=== PATIENT | female | born 1955 | race Caucasian/White ===

== ENCOUNTER 2016-07-05 12:47 | Emergency (ER) | payer MEDICARE, OTHER ==
[2016-07-05] MEDS ORDERED: Albuterol 0.083% 2.5 MG/3 ML Neb Soln NEB ONE (13:22)
--- NOTE | 2016-07-05 13:29 | EDM.PDOC ---
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 Today she got some blood work and a CXR. The blood work was not immediately available, but the CXR was interpreted in the clinic as showing a pleural effusion so she was referred to the ER. She reports colored sputum production. No fever. She is a smoker. SOB with exertion only. Sats in the clinic on RA @ 83%, 93% on arrival to the ED. Onset Date: 06/28/16 Duration: Day(s):, Constant Location: Reports: Chest Quality: Reports: Other (No chest pain) Severity: Moderate Improves with: Reports: Rest Worsens with: Reports: Movement Context: Reports: Other (smoker, on tx for a respiratory infection.) Associated Symptoms: Reports: Cough, Shortness of Breath (BALES). Denies: Fever/ Chills Treatments [employer]: Reports: Other Medication(s) (Azithromycin and predisone) ED ROS GENERAL - Review of Systems Review Of Systems: See Below Constitutional: Reports: No Symptoms HEENT: Reports: No Symptoms Respiratory: Reports: Shortness of Breath (BALES), Cough, Sputum. Denies: Wheezing, Pleuritic Chest Pain, Hemoptysis Cardiovascular: Reports: No Symptoms Endocrine: Reports: No Symptoms GI/Abdominal: Reports: No Symptoms : Reports: No Symptoms Musculoskeletal: Reports: No Symptoms Skin: Reports: No Symptoms Neurological: Reports: Other ("foggy in the head".) Psychiatric: Reports: No Symptoms ED EXAM, GENERAL - Physical Exam Exam: See Below Exam Limited By: No Limitations General Appearance: Alert, WD/WN, No Apparent Distress Eye Exam: Bilateral Eye: Normal Inspection Ears: Normal External Exam, Normal Canal, Hearing Grossly Normal Ear Exam: Bilateral Ear: Auricle Normal, Canal Normal Nose: Normal Inspection, Normal Mucosa, No Blood Throat/Mouth: Normal Inspection, Normal Lips, Normal Teeth, Normal Oropharynx, Normal Voice, No Airway Compromise Head: Atraumatic, Normocephalic Neck: Normal Inspection, Supple Respiratory/Chest: No Respiratory Distress, No Accessory Muscle Use, Rhonchi ( bibasilar), Other (frequent wet cough) Cardiovascular: Regular Rate, Rhythm, No Edema GI/Abdominal: Normal Bowel Sounds, Soft, Non-Tender, No Distention Back Exam: Normal Inspection, Full Range of Motion. No: CVA Tenderness (R), CVA Tenderness (L) Extremities: Normal Inspection, Normal Range of Motion, Non-Tender, No Pedal Edema Neurological: Alert, Oriented, CN II-XII Intact, Normal Cognition, No Motor/ Sensory Deficits Psychiatric: Normal Affect, Normal Mood Skin Exam: Warm, Dry, Intact, Normal Color, No Rash Lymphatic: No Adenopathy Course - Vital Signs Text/Narrative:: Albuterol neb-improved aeration, less coughing - Orders/Labs/Meds Orders: Active Orders 24 hr Category Date Time Status RT Aerosol Therapy [RC] ASDIRECTED Care 07/05/16 13:22 Ordered CULTURE SPUTUM + SMEAR [RM] Stat Lab 07/05/16 13:22 Ordered UA W/MICROSCOPIC [URIN] Stat Lab 07/05/16 13:24 Uncollected Meds: Medications Discontinued Medications Generic Name Dose Route Start Last Admin Trade Name Freq PRN Reason Stop Dose Admin Albuterol 2.5 mg 07/05/16 13:22 Proventil Neb Soln NEB 07/05/16 13:23 ONETIME ONE Departure - Departure Time of Disposition: 14:00 Disposition: Home, Self-Care 01 Condition: good Clinical Impression: Bronchospasm Emphysema of lung Qualifiers: Emphysema type: unspecified Qualified Code(s): J43.9 - Emphysema, unspecified - Discharge Information - My Orders Last 24 Hours: My Active Orders 07/05/16 13:22 RT Aerosol Therapy [RC] ASDIRECTED CULTURE SPUTUM + SMEAR [RM] Stat 07/05/16 13:24 UA W/MICROSCOPIC [URIN] Stat - Assessment/Plan Last 24 Hours: My Active Orders 07/05/16 13:22 RT Aerosol Therapy [RC] ASDIRECTED CULTURE SPUTUM + SMEAR [RM] Stat 07/05/16 13:24 UA W/MICROSCOPIC [URIN] Stat
[2016-07-05 17:00] VITALS: BP 176/70
== END 2016-07-05 14:25 | disposition home or self-care (01) ==
LOC: FB.ED 12:47
DX: J43.9 Emphysema, unspecified (principal); J98.01 Acute bronchospasm; F17.200 Nicotine dependence, unspecified, uncomplicated
CPT/HCPCS: 81001; 87070; 87205; 94664; 99283; 99284

== ENCOUNTER 2017-05-02 09:04 | Inpatient (IN) | payer MEDICARE, OTHER ==
[2017-05-02] MEDS ORDERED: Ketorolac 30 MG/ML SDV IVPUSH ONE (09:26)
[2017-05-02] MEDS ORDERED: Ondansetron 4 MG/2 ML SDV IVPUSH ONE (09:28)
[2017-05-02] MEDS ORDERED: Morphine 4 MG/ML Syringe IVPUSH ONE ×2 (09:28→12:15)
[2017-05-02] MEDS ORDERED: Sodium Chloride 0.9% 1,000 ML IV SCH ×2 (09:30→20:30)
--- NOTE | 2017-05-02 09:31 | EDM.PDOC ---
ED HPI GENERAL MEDICAL PROBLEM - General Chief Complaint: Abdominal Pain Stated Complaint: STOMACH PAIN Time Seen by Provider: 05/02/17 09:15 Source of Information: Reports: Patient History Limitations: Reports: No Limitations - History of Present Illness INITIAL COMMENTS - FREE TEXT/NARRATIVE: c/o mid abd pain x 4.5h since 4:30 AM awoke from sleep, no better, no radiation no n/v, no change in pain with normal soft BM this AM drinks daily--2 glasses wine and one shot of snopes smoked in past no prior GI problems Middle Anterior Abdominal Pain Score (Numeric/FACES): 10 - Related Data Allergies Allergy/AdvReac Type Severity Reaction Status Date / Time oxycodone Allergy Weakness Verified 07/05/16 13:54 Home Meds: Home Meds Calcium Carbonate/Vitamin D3 [Calcium 600 + D3 Softgel] 1 each PO BID 07/05/16 [ History] Cholecalciferol (Vitamin D3) [Vitamin D3] 1,000 unit PO DAILY 07/05/16 [History] Oxybutynin Chloride [Ditropan Xl] 10 mg PO DAILY 07/05/16 [History] Lisinopril/Hydrochlorothiazide [Lisinopril-Hctz 20-25 mg Tab] 1 tab PO DAILY [History] Past Medical History - Past Surgical History Female Surgical History: Reports: Other (See Below) Other Female Surgeries/Procedures: "bladder suregery Social & Family History - Tobacco Use Smoking Status *Q: Current Every Day Smoker Years of Tobacco use: 40 Packs/Tins Daily: 0.5 - Alcohol Use Days Per Week of Alcohol Use: 7 Number of Drinks Per Day: 2 Total Drinks Per Week: 14 - Recreational Drug Use Recreational Drug Use: No ED ROS GENERAL - Review of Systems Review Of Systems: See Below Constitutional: Reports: No Symptoms. Denies: Fever, Malaise, Weakness, Night Sweats, Diaphoresis HEENT: Reports: No Symptoms Respiratory: Reports: No Symptoms. Denies: Shortness of Breath Cardiovascular: Reports: No Symptoms. Denies: Chest Pain Endocrine: Reports: No Symptoms GI/Abdominal: Reports: Abdominal Pain. Denies: Constipation, Diarrhea, Nausea, Vomiting : Reports: No Symptoms Musculoskeletal: Reports: No Symptoms Skin: Reports: No Symptoms Neurological: Reports: No Symptoms Psychiatric: Reports: No Symptoms Hematologic/Lymphatic: Reports: No Symptoms Immunologic: Reports: No Symptoms ED EXAM, GI/ABD - Physical Exam Exam: See Below Exam Limited By: No Limitations General Appearance: Alert, WD/WN, Mild Distress Eyes: Bilateral: Normal Appearance, EOMI Ears: Normal External Exam Nose: Normal Inspection, Normal Mucosa, No Blood Throat/Mouth: Normal Inspection, Normal Lips, Normal Teeth, Normal Gums, Normal Voice, No Airway Compromise Head: Atraumatic, Normocephalic Neck: Normal Inspection, Supple, Non-Tender, Full Range of Motion Respiratory/Chest: No Respiratory Distress, Lungs Clear, Normal Breath Sounds, No Accessory Muscle Use, Chest Non-Tender Cardiovascular: Regular Rate, Rhythm, No Edema, No Gallop, No JVD, No Murmur, No Rub GI/Abdominal Exam: Normal Bowel Sounds, Soft, No Organomegaly, No Distention, No Mass, Pelvis Stable, Other (soft, ND, 1+ tender at periumbilical and in midline above and below umbilicus, nl BS x 4) Back Exam: Normal Inspection, Full Range of Motion, NT Extremities: Normal Inspection, Normal Range of Motion, Non-Tender, Normal Capillary Refill, No Pedal Edema Neurological: Alert, Oriented, CN II-XII Intact, Normal Cognition, No Motor/ Sensory Deficits Psychiatric: Normal Affect, Normal Mood Skin Exam: Warm, Dry, Intact, Normal Color, No Rash Lymphatic: No Adenopathy Course - Vital Signs Last Recorded V/S: Last Vital Signs Temp 36.3 C 05/02/17 10:48 Pulse 94 05/02/17 10:48 Resp 18 05/02/17 10:48 BP 105/69 05/02/17 10:48 Pulse Ox 100 05/02/17 10:48 - Orders/Labs/Meds Orders: Active Orders 24 hr Category Date Time Status Abdomen Pelvis w Cont [CT] Stat Exams 05/02/17 09:33 Ordered UA W/MICROSCOPIC [URIN] Stat Lab 05/02/17 09:26 Ordered Diatrizoate Queta/Diatrizoate Na [Gastrografin 37%] Med 05/02/17 11:30 Active 30 ml PO . DIRECTED Sodium Chloride 0.9% [Normal Saline] 1,000 ml Med 05/02/17 09:30 Active IV ASDIRECTED Medication Orders Diatrizoate Meglum/Diatrizoate Sod (Gastrografin 37%) 30 ml PO . DIRECTED [facility] Last Admin: 05/02/17 11:39 Dose: 30 ml Sodium Chloride (Normal Saline) 1,000 mls @ 999 mls/hr IV ASDIRECTED [facility] Last Admin: 05/02/17 09:45 Dose: 999 mls/hr Labs: Laboratory Tests 05/02/17 05/02/17 05/02/17 Range/Units 09:50 09:50 09:50 WBC 11.3 (4.5-12.0) X10-3/uL RBC 4.12 (3.23-5.20) x10(6)uL Hgb 13.2 (11.5-15.5) g/dL Hct 39.1 (30.0-51.3) % MCV 95.0 (80-96) fL MCH 32.1 (27.7-33.6) pg MCHC 33.8 (32.2-35.4) g/dL RDW 12.4 (11.5-15.5) % Plt Count 236 (125-369) X10(3)uL MPV 8.3 (7.4-10.4) fL Add Manual Diff Yes Neutrophils % (Manual) 91 H (46-82) % Lymphocytes % (Manual) 6 L (13-37) % Monocytes % (Manual) 3 L (4-12) % D-Dimer, Quantitative (100-400) ng/mL Sodium 140 (135-145) mmol/L Potassium 3.9 (3.5-5.3) mmol/L Chloride 101 (100-110) mmol/L Carbon Dioxide 30 (21-32) mmol/L BUN 14 (7-18) mg/dL Creatinine 0.8 (0.55-1.02) mg/dL Est Cr Clr Drug Dosing 61.64 mL/min Estimated GFR (MDRD) > 60 (>60) BUN/Creatinine Ratio 17.5 (9-20) Glucose 168 H (80-116) mg/dL Calcium 9.4 (8.6-10.2) mg/dL Total Bilirubin 0.3 (0.1-1.3) mg/dL AST 30 H (5-25) IU/L ALT 29 (12-36) U/L Alkaline Phosphatase 93 (56-112) IU/L Lactate Dehydrogenase (81-234) U/L C-Reactive Protein 0.3 L (0.5-0.9) mg/dL Total Protein 7.4 (6.0-8.0) g/dL Albumin 3.5 (3.2-4.6) g/dL Globulin 3.9 g/dL Albumin/Globulin Ratio 0.9 Amylase 52 (25-115) U/L 05/02/17 05/02/17 Range/Units 09:50 09:50 WBC (4.5-12.0) X10-3/uL RBC (3.23-5.20) x10(6)uL Hgb (11.5-15.5) g/dL Hct (30.0-51.3) % MCV (80-96) fL MCH (27.7-33.6) pg MCHC (32.2-35.4) g/dL RDW (11.5-15.5) % Plt Count (125-369) X10(3)uL MPV (7.4-10.4) fL Add Manual Diff Neutrophils % (Manual) (46-82) % Lymphocytes % (Manual) (13-37) % Monocytes % (Manual) (4-12) % D-Dimer, Quantitative 237 (100-400) ng/mL Sodium (135-145) mmol/L Potassium (3.5-5.3) mmol/L Chloride (100-110) mmol/L Carbon Dioxide (21-32) mmol/L BUN (7-18) mg/dL Creatinine (0.55-1.02) mg/dL Est Cr Clr Drug Dosing mL/min Estimated GFR (MDRD) (>60) BUN/Creatinine Ratio (9-20) Glucose (80-116) mg/dL Calcium (8.6-10.2) mg/dL Total Bilirubin (0.1-1.3) mg/dL AST (5-25) IU/L ALT (12-36) U/L Alkaline Phosphatase (56-112) IU/L Lactate Dehydrogenase 205 (81-234) U/L C-Reactive Protein (0.5-0.9) mg/dL Total Protein (6.0-8.0) g/dL Albumin (3.2-4.6) g/dL Globulin g/dL Albumin/Globulin Ratio Amylase (25-115) U/L Meds: Medications Generic Name Dose Route Start Last Admin Trade Name Zofia PRN Reason Stop Dose Admin Diatrizoate Meglum/Diatrizoate Sod 30 ml 05/02/17 11:30 05/02/17 11:39 Gastrografin 37% PO 30 ml . DIRECTED Y[facility] Administration Sodium Chloride 1,000 mls @ 999 mls/hr 05/02/17 09:30 05/02/17 09:45 Normal Saline IV 999 mls/hr ASDIRECTED Y[facility] Administration Discontinued Medications Generic Name Dose Route Start Last Admin Trade Name Zofia PRN Reason Stop Dose Admin Iopamidol 75 ml 05/02/17 11:30 05/02/17 11:39 Isovue-370 (76%) IV 05/02/17 11:31 73 ml ONETIME ONE Administration Ketorolac Tromethamine 30 mg 05/02/17 09:26 05/02/17 09:48 Toradol IVPUSH 05/02/17 09:27 30 mg ONETIME ONE Administration Morphine Sulfate 4 mg 05/02/17 09:28 05/02/17 09:48 Morphine IVPUSH 05/02/17 09:29 4 mg ONETIME ONE Administration Morphine Sulfate 2 mg 05/02/17 10:49 05/02/17 10:54 Morphine IVPUSH 05/02/17 10:50 2 mg ONETIME ONE Administration Morphine Sulfate 4 mg 05/02/17 12:15 05/02/17 12:30 Morphine IVPUSH 05/02/17 12:16 4 mg ONETIME ONE Administration Ondansetron HCl 4 mg 05/02/17 09:28 05/02/17 09:47 Zofran IVPUSH 05/02/17 09:29 4 mg ONETIME ONE Administration - Re-Assessments/Exams Free Text/Narrative Re-Assessment/Exam: 05/02/17 12:17 labs unremarkable, does have L shift CT shows 3-4 loops of ileum filled with fluid and dilated to 3-4 cm, there is nl ileum inbetween, c/w skip lesions from possible Crohn's, has moderate atherosclerosis noted, aorta nl size, there is fibrosis vs pneumonia at the L lung base, possible sludge in GB pt with no prior abd surgery, not had a colonoscopy done, not had similar pain in past will d/w hospitalist regarding admission an additional 4 mg MS (for a total of 10 mg) ordered as pain has inc'd again Free Text/Narrative Re-Assessment/Exam: 05/02/17 12:41 d/w Dr Shannan Montes hospitalist who accepted pt in transfer Departure - Departure Time of Disposition: 12:41 Disposition: Admitted As Inpatient 65 Condition: Good Clinical Impression: Abdominal pain, Dilated bowel - Discharge Information Referrals: Ollie Baig MD [Primary Care Provider] - Forms: ED Department Discharge - My Orders Last 24 Hours: My Active Orders 05/02/17 09:26 UA W/MICROSCOPIC [URIN] Stat 05/02/17 09:30 Sodium Chloride 0.9% [Normal Saline] 1,000 ml IV ASDIRECTED 05/02/17 09:33 Abdomen Pelvis w Cont [CT] Stat 05/02/17 11:30 Diatrizoate Queta/Diatrizoate Na [Gastrografin 37%] 30 ml PO . DIRECTED - Assessment/Plan Last 24 Hours: My Active Orders 05/02/17 09:26 UA W/MICROSCOPIC [URIN] Stat 05/02/17 09:30 Sodium Chloride 0.9% [Normal Saline] 1,000 ml IV ASDIRECTED 05/02/17 09:33 Abdomen Pelvis w Cont [CT] Stat 05/02/17 11:30 Diatrizoate Queta/Diatrizoate Na [Gastrografin 37%] 30 ml PO . DIRECTED
[2017-05-02] MEDS ORDERED: Morphine 2 MG/ML Syringe IVPUSH ONE (10:49)
[2017-05-02] MEDS ORDERED: Diatrizoate Meglumine/Diatrizoate Sodium 37% 30 ML Bottle PO SCH (11:30)
[2017-05-02] MEDS ORDERED: Iopamidol 755 Mg/ML 75 ML Bottle IV ONE (11:30)
--- NOTE | 2017-05-02 13:43 | CT ---
INDICATION: Mid abdominal pain - periumbilical x5 hours, with nausea and vomiting. CT ABDOMEN AND PELVIS WITH CONTRAST: Spiral 2.5-mm axial sections were obtained through the abdomen and pelvis with 73 mL Isovue-370 and oral contrast , as well as sagittal and coronal reconstructions, 05/02/2017 - no comparisons. Total Exam DLP = 892.89 mGy-cm. The lower lung nolan and pleural spaces visualized showed evidence of infiltration at the left lung base, minimally in the lingula and more prominently in the left lower lobe. These areas may represent pneumonia, although some atelectatic change may be present. Fibrosis is also a possibility. The heart appeared normal in size. No pericardial effusion was seen. There is an appearance suggesting sludge in the gallbladder. It is difficult to exclude gravel in the gallbladder also. No finding to strongly suggest acute cholecystitis was identified. Gallbladder ultrasound may be of further diagnostic benefit, depending upon clinical necessity. The liver appeared normal. Low-density area of prominence at the adrenal gland on the right, raising question of a small adrenal adenoma. The right kidney was unremarkable. On the left, there is a small low-density lesion in the lateral mid pole cortex, suggesting a benign cystic structure. Calcifications are noted in the abdominal aorta, renal arteries, celiac axis, superior mesenteric artery, iliac, and femoral arteries. No retroperitoneal mass was seen. The spleen and pancreas appeared normal. The common bile duct was not enlarged in the head of the pancreas. What appears to be the appendix appeared very small in size. No finding to suggest appendicitis was seen. There are multiple loops of distended ileum, which are filled with fluid and appear to transition to normal caliber small bowel in the mid to lower pelvis. They then again transition to dilated loops and back to normal caliber loops. Findings suggest Crohn's disease - correlate clinically. 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 The urinary bladder had a fairly normal appearance as visualized. There are a few scattered phleboliths noted in the pelvis. A small amount of free fluid is noted in the posterior pelvis. Etiology is indeterminate. It could be related to the dilated loops of small bowel. IMPRESSION: 1. Dilated loops of ileum transitioning to normal caliber and then dilated again. Findings suggest the possibility of Crohn's disease, but should be correlated clinically. 2. ASD. 3. Cannot entirely exclude sludge or gravel in the gallbladder - correlate clinically. 4. Probable simple cyst mid pole left kidney lateral cortex. A small amount of free fluid in the posterior mid to lower pelvis. Etiology indeterminate, but could be related to Crohn's disease. 5. Parenchymal changes at the left lung base may represent minimal pneumonia and/or fibrosis. Report was called to Dr. Stein at 1206 hours, 05/02/2017. [facility]
[2017-05-02] MEDS ORDERED: Acetaminophen 650 MG Supp RECTAL PRN (17:13)
[2017-05-02] MEDS ORDERED: Temazepam 7.5 MG Cap PO PRN (17:13)
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
[2017-05-02] MEDS: fentaNYL 100 MCG/2 ML SDV IVPUSH PRN ×3 (17:49→23:29)
--- NOTE | 2017-05-02 18:09 | PCM.SN ---
- Free Text/Narrative Note: full consult dictated.
[2017-05-02] MEDS: Sodium Chloride 0.9% 1,000 ML IV SCH (18:16)
[2017-05-02] MEDS ORDERED: Acetaminophen 325 MG Tab PO PRN (20:13)
[2017-05-02] MEDS: Ketorolac 30 MG/ML SDV IVPUSH PRN (20:24)
[2017-05-02] MEDS: Sodium Chloride 0.9% 10 ML Syringe FLUSH PRN (20:25)
[2017-05-02] MEDS ORDERED: Sodium Chloride 0.9% 1,000 ML IV ONE (20:45)
--- NOTE | 2017-05-02 21:37 | PCM.SN ---
- Free Text/Narrative Note: pt still with pain after Fentanyl 50 mcg IV x 2 pt reports pain had been present all afternoon, now a little worse but not excessively so, previous pain meds in ED at 12:30 PM abd mildly distended, a little more so than earlier, however very good BS x 4, does remain tender, however no acute abd pt not had a void since noon, on NS 100 ml/hr, will continue current rate and gave an additional bolus of 1 liter NS labs checked, CRP edged up a little from 0.3 to 0.7, of uncertain clinical sig\ BUN a little higher after dye load earlier ischemic bowel still somewhat of a concern, cannot be eliminated, altho seems unlikely given clinical course, good BS, and stable/normal LDH and CPK
[2017-05-03] MEDS: fentaNYL 100 MCG/2 ML SDV IVPUSH PRN ×5 (01:13→09:44)
[2017-05-03] MEDS: Ketorolac 30 MG/ML SDV IVPUSH PRN ×3 (02:37→22:03)
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
[2017-05-03] MEDS: Sodium Chloride 0.9% 1,000 ML IV SCH ×2 (04:41→15:34)
[2017-05-03] MEDS: Ondansetron 4 MG Tab.DIS PO PRN (04:46)
--- NOTE | 2017-05-03 07:55 | PCM.SURGPN ---
- General Info Date of Service: 05/03/17 Functional Status: Reports: New Symptoms (notes some heart burn and relates a hx of gerd) - Review of Systems General: Denies: Fever Gastrointestinal: Reports: Abdominal Pain - Patient Data Vitals - Most Recent: Last Vital Signs Temp 36.6 C 05/03/17 04:00 Pulse 79 05/03/17 04:00 Resp 18 05/03/17 04:00 BP 104/71 05/03/17 04:00 Pulse Ox 94 L 05/03/17 04:00 Weight - Most Recent: 70.76 kg I&O - Last 24 Hours: Intake & Output 05/02/17 05/03/17 05/03/17 22:59 06:59 14:59 Intake Total 1258 819 Output Total 200 125 Balance 1058 694 Lab Results Last 24 Hrs: Laboratory Results - last 24 hr 05/02/17 05/02/17 05/02/17 Range/Units 13:10 20:45 20:45 WBC 10.6 (4.5-12.0) X10-3/uL RBC 3.87 (3.23-5.20) x10(6)uL Hgb 12.6 (11.5-15.5) g/dL Hct 36.8 (30.0-51.3) % MCV 95.1 (80-96) fL MCH 32.5 (27.7-33.6) pg MCHC 34.2 (32.2-35.4) g/dL RDW 12.5 (11.5-15.5) % Plt Count 243 (125-369) X10(3)uL MPV 8.5 (7.4-10.4) fL Neut % (Auto) 66.3 (46-82) % Lymph % (Auto) 25.4 (13-37) % [place] % (Auto) 8.0 (4-12) % Eos % (Auto) 0 L (1.0-5.0) % Baso % (Auto) 0 (0-2) % Neut # (Auto) 7.1 (1.6-8.3) # Lymph # (Auto) 2.7 (0.6-5.0) # [place] # (Auto) 0.8 (0.0-1.3) # Eos # (Auto) 0.0 (0.0-0.8) # Baso # (Auto) 0.0 (0.0-0.2) # ESR (0-20) mm/hr Sodium 139 (135-145) mmol/L Potassium 3.8 (3.5-5.3) mmol/L Chloride 101 (100-110) mmol/L Carbon Dioxide 29 (21-32) mmol/L BUN 17 (7-18) mg/dL Creatinine 0.9 (0.55-1.02) mg/dL Est Cr Clr Drug Dosing 54.79 mL/min Estimated GFR (MDRD) > 60 (>60) BUN/Creatinine Ratio 18.9 (9-20) Glucose 99 (80-116) mg/dL Calcium 8.7 (8.6-10.2) mg/dL Total Bilirubin (0.1-1.3) mg/dL AST (5-25) IU/L ALT (12-36) U/L Alkaline Phosphatase (56-112) IU/L Lactate Dehydrogenase 196 (81-234) U/L Creatine Kinase 155 (60-160) IU/L C-Reactive Protein (0.5-0.9) mg/dL Total Protein (6.0-8.0) g/dL Albumin (3.2-4.6) g/dL Globulin g/dL Albumin/Globulin Ratio Urine Color Yellow (YELLOW) Urine Appearance Slightly cloudy (CLEAR) Urine pH 5.0 (5.0-6.5) Ur Specific [place] 1.015 (1.010-1.025) Urine Protein Negative (NEGATIVE) mg/dL Urine Glucose (UA) Normal (NEGATIVE) mg/dL Urine Ketones Negative (NEGATIVE) mg/dL Urine Occult Blood Negative (NEGATIVE) Urine Nitrite Negative (NEGATIVE) Urine Bilirubin Small H (NEGATIVE) Urine Urobilinogen Normal (NEGATIVE) mg/dL Ur Leukocyte Esterase Negative (NEGATIVE) Urine WBC 0-5 (0) Ur Squamous Epith Cells Few H (NS,R,O) Urine Bacteria Few H (NS) 05/02/17 05/03/17 05/03/17 Range/Units 20:45 06:05 06:05 WBC 9.0 (4.5-12.0) X10-3/uL RBC 3.80 (3.23-5.20) x10(6)uL Hgb 12.3 (11.5-15.5) g/dL Hct 36.3 (30.0-51.3) % MCV 95.4 (80-96) fL MCH 32.3 (27.7-33.6) pg MCHC 33.8 (32.2-35.4) g/dL RDW 12.3 (11.5-15.5) % Plt Count 228 (125-369) X10(3)uL MPV 9.0 (7.4-10.4) fL Neut % (Auto) 72.1 (46-82) % Lymph % (Auto) 20.3 (13-37) % [place] % (Auto) 7.2 (4-12) % Eos % (Auto) 0 L (1.0-5.0) % Baso % (Auto) 0 (0-2) % Neut # (Auto) 6.6 (1.6-8.3) # Lymph # (Auto) 1.8 (0.6-5.0) # [place] # (Auto) 0.6 (0.0-1.3) # Eos # (Auto) 0.0 (0.0-0.8) # Baso # (Auto) 0.0 (0.0-0.2) # ESR (0-20) mm/hr Sodium 137 (135-145) mmol/L Potassium 4.2 (3.5-5.3) mmol/L Chloride 101 (100-110) mmol/L Carbon Dioxide 29 (21-32) mmol/L BUN 18 (7-18) mg/dL Creatinine 0.9 (0.55-1.02) mg/dL Est Cr Clr Drug Dosing 54.79 mL/min Estimated GFR (MDRD) > 60 (>60) BUN/Creatinine Ratio 20.0 (9-20) Glucose 113 (80-116) mg/dL Calcium 8.7 (8.6-10.2) mg/dL Total Bilirubin 0.4 (0.1-1.3) mg/dL AST 35 H D (5-25) IU/L ALT 25 D (12-36) U/L Alkaline Phosphatase 73 (56-112) IU/L Lactate Dehydrogenase (81-234) U/L Creatine Kinase (60-160) IU/L C-Reactive Protein 0.7 (0.5-0.9) mg/dL Total Protein 6.3 (6.0-8.0) g/dL Albumin 3.0 L (3.2-4.6) g/dL Globulin 3.3 g/dL Albumin/Globulin Ratio 0.9 Urine Color (YELLOW) Urine Appearance (CLEAR) Urine pH (5.0-6.5) Ur Specific [place] (1.010-1.025) Urine Protein (NEGATIVE) mg/dL Urine Glucose (UA) (NEGATIVE) mg/dL Urine Ketones (NEGATIVE) mg/dL Urine Occult Blood (NEGATIVE) Urine Nitrite (NEGATIVE) Urine Bilirubin (NEGATIVE) Urine Urobilinogen (NEGATIVE) mg/dL Ur Leukocyte Esterase (NEGATIVE) Urine WBC (0) Ur Squamous Epith Cells (NS,R,O) Urine Bacteria (NS) 05/03/17 Range/Units 06:05 WBC (4.5-12.0) X10-3/uL RBC (3.23-5.20) x10(6)uL Hgb (11.5-15.5) g/dL Hct (30.0-51.3) % MCV (80-96) fL MCH (27.7-33.6) pg MCHC (32.2-35.4) g/dL RDW (11.5-15.5) % Plt Count (125-369) X10(3)uL MPV (7.4-10.4) fL Neut % (Auto) (46-82) % Lymph % (Auto) (13-37) % [place] % (Auto) (4-12) % Eos % (Auto) (1.0-5.0) % Baso % (Auto) (0-2) % Neut # (Auto) (1.6-8.3) # Lymph # (Auto) (0.6-5.0) # [place] # (Auto) (0.0-1.3) # Eos # (Auto) (0.0-0.8) # Baso # (Auto) (0.0-0.2) # ESR 17 (0-20) mm/hr Sodium (135-145) mmol/L Potassium (3.5-5.3) mmol/L Chloride (100-110) mmol/L Carbon Dioxide (21-32) mmol/L BUN (7-18) mg/dL Creatinine (0.55-1.02) mg/dL Est Cr Clr Drug Dosing mL/min Estimated GFR (MDRD) (>60) BUN/Creatinine Ratio (9-20) Glucose (80-116) mg/dL Calcium (8.6-10.2) mg/dL Total Bilirubin (0.1-1.3) mg/dL AST (5-25) IU/L ALT (12-36) U/L Alkaline Phosphatase (56-112) IU/L Lactate Dehydrogenase (81-234) U/L Creatine Kinase (60-160) IU/L C-Reactive Protein (0.5-0.9) mg/dL Total Protein (6.0-8.0) g/dL Albumin (3.2-4.6) g/dL Globulin g/dL Albumin/Globulin Ratio Urine Color (YELLOW) Urine Appearance (CLEAR) Urine pH (5.0-6.5) Ur Specific [place] (1.010-1.025) Urine Protein (NEGATIVE) mg/dL Urine Glucose (UA) (NEGATIVE) mg/dL Urine Ketones (NEGATIVE) mg/dL Urine Occult Blood (NEGATIVE) Urine Nitrite (NEGATIVE) Urine Bilirubin (NEGATIVE) Urine Urobilinogen (NEGATIVE) mg/dL Ur Leukocyte Esterase (NEGATIVE) Urine WBC (0) Ur Squamous Epith Cells (NS,R,O) Urine Bacteria (NS) Med Orders - Current: Current Medications Acetaminophen (Tylenol) 650 mg RECTAL Q4H PRN PRN Reason: Mild pain/fever Acetaminophen (Tylenol) 650 mg PO Q4H PRN PRN Reason: Abdominal Pain Diatrizoate Meglum/Diatrizoate Sod (Gastrografin 37%) 30 ml PO . DIRECTED [facility] Last Admin: 05/02/17 11:39 Dose: 30 ml Fentanyl (Sublimaze) 100 mcg IVPUSH Q1H PRN PRN Reason: Abdominal Pain Last Admin: 05/03/17 06:20 Dose: 100 mcg Sodium Chloride (Normal Saline) 1,000 mls @ 100 mls/hr IV ASDIRECTED [facility] Stop: 05/03/17 17:16 Last Admin: 05/03/17 04:41 Dose: 100 mls/hr Ketorolac Tromethamine (Toradol) 30 mg IVPUSH Q6H PRN PRN Reason: Pain Stop: 05/07/17 20:05 Last Admin: 05/03/17 02:37 Dose: 30 mg Ondansetron HCl (Zofran Odt) 4 mg PO Q4H PRN PRN Reason: nausea, able to take PO Last Admin: 05/03/17 04:46 Dose: 4 mg Pantoprazole Sodium (Protonix Iv) 40 mg IVPUSH DAILY [facility] Sodium Chloride (Saline Flush) 10 ml FLUSH ASDIRECTED PRN PRN Reason: Keep Vein Open Last Admin: 05/02/17 20:25 Dose: 10 ml Temazepam (Restoril) 7.5 mg PO BEDTIME PRN PRN Reason: Sleep Discontinued Medications Fentanyl (Sublimaze) 50 mcg IVPUSH Q30M PRN PRN Reason: Abdominal Pain Last Admin: 05/02/17 18:51 Dose: 50 mcg Sodium Chloride (Normal Saline) 1,000 mls @ 999 mls/hr IV ASDIRECTED [facility] Last Admin: 05/02/17 09:45 Dose: 999 mls/hr Sodium Chloride (Normal Saline) 1,000 mls @ 999 mls/hr IV ASDIRECTED [facility] Sodium Chloride (Normal Saline) 1,000 mls @ 999 mls/hr IV ASDIRECTED ONE Stop: 05/02/17 21:45 Last Admin: 05/02/17 20:50 Dose: 999 mls/hr Iopamidol (Isovue-370 (76%)) 75 ml IV ONETIME ONE Stop: 05/02/17 11:31 Last Admin: 05/02/17 11:39 Dose: 73 ml Ketorolac Tromethamine (Toradol) 30 mg IVPUSH ONETIME ONE Stop: 05/02/17 09:27 Last Admin: 05/02/17 09:48 Dose: 30 mg Morphine Sulfate (Morphine) 4 mg IVPUSH ONETIME ONE Stop: 05/02/17 09:29 Last Admin: 05/02/17 09:48 Dose: 4 mg Morphine Sulfate (Morphine) 2 mg IVPUSH ONETIME ONE Stop: 05/02/17 10:50 Last Admin: 05/02/17 10:54 Dose: 2 mg Morphine Sulfate (Morphine) 4 mg IVPUSH ONETIME ONE Stop: 05/02/17 12:16 Last Admin: 05/02/17 12:30 Dose: 4 mg Ondansetron HCl (Zofran) 4 mg IVPUSH ONETIME ONE Stop: 05/02/17 09:29 Last Admin: 05/02/17 09:47 Dose: 4 mg - Exam General: Alert, Oriented Lungs: Clear to Auscultation, Normal Respiratory Effort Cardiovascular: Regular Rate, Regular Rhythm GI/Abdominal Exam: Normal Bowel Sounds, Soft, Tender (mild in the epigastrium ) - Problem List & Annotations (1) Abdominal pain SNOMED Code(s): 21431937 Code(s): R10.9 - UNSPECIFIED ABDOMINAL PAIN Status: Acute Current Visit: Yes Annotation/Comment:: Unclear etiology. Given the normal vital signs, normal white count with a slight left shift, normal CRP, and very unusual findings on CT, at this point I think the most prudent thing would be to consult general surgery for their expertise and to treat the patient with IV hydration, keep her nothing by mouth, and control her pain with IV narcotics. The patient's labs and exam are not consistent with Crohn's disease, particularly given her age and lack of family history of autoimmune disease. CT scan showed a normal appendix, does not appear to be infectious with normal labs , no current diarrhea, and no possible exposure to foods or animals that would be high risk for Escherichia coli or salmonella. We will order stool studies in case she has diarrhea later today. We'll follow vital signs and labs closely. - Problem List Review Problem List Initiated/Reviewed/Updated: Yes - My Orders Last 24 Hours: Active Orders 24 hr Category Date Time Status Admission Status [Patient Status] [ADT] Routine ADT 05/02/17 13:10 Active Ambulate [RC] PER UNIT ROUTINE Care 05/02/17 17:15 Active Notify Provider Consults [RC] ASDIRECTED Care 05/02/17 17:10 Active Notify Provider Vital Signs [RC] ASDIRECTED Care 05/02/17 17:14 Active Oxygen Therapy [RC] PRN Care 05/02/17 17:12 Active Pulse Oximetry [RC] PRN Care 05/02/17 17:14 Active Up ad Dee [RC] ASDIRECTED Care 05/02/17 17:13 Active Vital Signs [RC] 08,12,16,20,00,04 Care 05/02/17 17:12 Active Consult to Physician [CONS] Routine Cons 05/02/17 17:08 Ordered CULTURE-STOOL [MREF] Routine Lab 05/02/17 17:11 Ordered LACTOFERRIN, FECAL BY IFTIKHAR Routine Lab 05/02/17 17:11 Ordered Acetaminophen [Tylenol] Med 05/02/17 20:13 Active 650 mg PO Q4H PRN Acetaminophen [Tylenol] Med 05/02/17 17:13 Active 650 mg RECTAL Q4H PRN Ketorolac [Toradol] Med 05/02/17 20:05 Active 30 mg IVPUSH Q6H PRN Ondansetron [Zofran ODT] Med 05/02/17 17:13 Active 4 mg PO Q4H PRN Pantoprazole [ProTONIX IV] Med 05/03/17 09:00 Ordered 40 mg IVPUSH DAILY Sodium Chloride 0.9% [Normal Saline] 1,000 ml Med 05/02/17 17:15 Active IV ASDIRECTED Sodium Chloride 0.9% [Saline Flush] Med 05/02/17 19:00 Active 10 ml FLUSH ASDIRECTED PRN Temazepam [Restoril] Med 05/02/17 17:13 Active 7.5 mg PO BEDTIME PRN fentaNYL [Sublimaze] Med 05/02/17 20:04 Active 100 mcg IVPUSH Q1H PRN Antiembolic Hose [OM.PC] Per Unit Routine Oth 05/02/17 17:15 Ordered Sequential Compression Device [OM.PC] Per Unit Routine Oth 05/02/17 17:15 Ordered Resuscitation Status Routine Resus Stat 05/02/17 17:12 Ordered Medication Orders Acetaminophen (Tylenol) 650 mg RECTAL Q4H PRN PRN Reason: Mild pain/fever Acetaminophen (Tylenol) 650 mg PO Q4H PRN PRN Reason: Abdominal Pain Diatrizoate Meglum/Diatrizoate Sod (Gastrografin 37%) 30 ml PO . DIRECTED [facility] Last Admin: 05/02/17 11:39 Dose: 30 ml Fentanyl (Sublimaze) 100 mcg IVPUSH Q1H PRN PRN Reason: Abdominal Pain Last Admin: 05/03/17 06:20 Dose: 100 mcg Admin: 05/03/17 04:21 Dose: 100 mcg Admin: 05/03/17 01:13 Dose: 100 mcg Admin: 05/02/17 23:29 Dose: 100 mcg Sodium Chloride (Normal Saline) 1,000 mls @ 100 mls/hr IV ASDIRECTED [facility] Stop: 05/03/17 17:16 Last Admin: 05/03/17 04:41 Dose: 100 mls/hr Infusion: 05/03/17 04:16 Dose: 100 mls/hr Admin: 05/02/17 18:16 Dose: 100 mls/hr Ketorolac Tromethamine (Toradol) 30 mg IVPUSH Q6H PRN PRN Reason: Pain Stop: 05/07/17 20:05 Last Admin: 05/03/17 02:37 Dose: 30 mg Admin: 05/02/17 20:24 Dose: 30 mg Ondansetron HCl (Zofran Odt) 4 mg PO Q4H PRN PRN Reason: nausea, able to take PO Last Admin: 05/03/17 04:46 Dose: 4 mg Pantoprazole Sodium (Protonix Iv) 40 mg IVPUSH DAILY [facility] Sodium Chloride (Saline Flush) 10 ml FLUSH ASDIRECTED PRN PRN Reason: Keep Vein Open Last Admin: 05/02/17 20:25 Dose: 10 ml Temazepam (Restoril) 7.5 mg PO BEDTIME PRN PRN Reason: Sleep - Assessment Assessment (Free Text/Narrative):: no clear etio would treat her gerd sx this am. consider upper and lower endoscopy if no improvement
[2017-05-03] MEDS: Pantoprazole 40 MG Vial IVPUSH SCH (09:07)
--- NOTE | 2017-05-03 09:22 | PCM.PN ---
- General Info Date of Service: 05/03/17 Subjective Update: Patient had a little heartburn this morning with more nausea. She hasn't had any further episodes of vomiting since admission. Pain is somewhat improved. Responds well to the fentanyl. No bowel movements. Vital signs were stable overnight with no fevers. Labs again were unremarkable this morning. Dr. Gracia was gracious enough to see the patient last night and this morning in consultation and is in agreement with observation until the patient either declares herself or requires upper and lower endoscopy for persistent symptoms. - Patient Data Vitals - Most Recent: Last Vital Signs Temp 36.6 C 05/03/17 04:00 Pulse 79 05/03/17 04:00 Resp 18 05/03/17 04:00 BP 104/71 05/03/17 04:00 Pulse Ox 94 L 05/03/17 04:00 Weight - Most Recent: 70.76 kg I&O - Last 24 Hours: Intake & Output 05/02/17 05/03/17 05/03/17 22:59 06:59 14:59 Intake Total 1258 819 Output Total 200 125 Balance 1058 694 Lab Results Last 24 Hours: Laboratory Results - last 24 hr 05/02/17 05/02/17 05/02/17 Range/Units 13:10 20:45 20:45 WBC 10.6 (4.5-12.0) X10-3/uL RBC 3.87 (3.23-5.20) x10(6)uL Hgb 12.6 (11.5-15.5) g/dL Hct 36.8 (30.0-51.3) % MCV 95.1 (80-96) fL MCH 32.5 (27.7-33.6) pg MCHC 34.2 (32.2-35.4) g/dL RDW 12.5 (11.5-15.5) % Plt Count 243 (125-369) X10(3)uL MPV 8.5 (7.4-10.4) fL Neut % (Auto) 66.3 (46-82) % Lymph % (Auto) 25.4 (13-37) % [place] % (Auto) 8.0 (4-12) % Eos % (Auto) 0 L (1.0-5.0) % Baso % (Auto) 0 (0-2) % Neut # (Auto) 7.1 (1.6-8.3) # Lymph # (Auto) 2.7 (0.6-5.0) # [place] # (Auto) 0.8 (0.0-1.3) # Eos # (Auto) 0.0 (0.0-0.8) # Baso # (Auto) 0.0 (0.0-0.2) # ESR (0-20) mm/hr Sodium 139 (135-145) mmol/L Potassium 3.8 (3.5-5.3) mmol/L Chloride 101 (100-110) mmol/L Carbon Dioxide 29 (21-32) mmol/L BUN 17 (7-18) mg/dL Creatinine 0.9 (0.55-1.02) mg/dL Est Cr Clr Drug Dosing 54.79 mL/min Estimated GFR (MDRD) > 60 (>60) BUN/Creatinine Ratio 18.9 (9-20) Glucose 99 (80-116) mg/dL Calcium 8.7 (8.6-10.2) mg/dL Total Bilirubin (0.1-1.3) mg/dL AST (5-25) IU/L ALT (12-36) U/L Alkaline Phosphatase (56-112) IU/L Lactate Dehydrogenase 196 (81-234) U/L Creatine Kinase 155 (60-160) IU/L C-Reactive Protein (0.5-0.9) mg/dL Total Protein (6.0-8.0) g/dL Albumin (3.2-4.6) g/dL Globulin g/dL Albumin/Globulin Ratio Urine Color Yellow (YELLOW) Urine Appearance Slightly cloudy (CLEAR) Urine pH 5.0 (5.0-6.5) Ur Specific [place] 1.015 (1.010-1.025) Urine Protein Negative (NEGATIVE) mg/dL Urine Glucose (UA) Normal (NEGATIVE) mg/dL Urine Ketones Negative (NEGATIVE) mg/dL Urine Occult Blood Negative (NEGATIVE) Urine Nitrite Negative (NEGATIVE) Urine Bilirubin Small H (NEGATIVE) Urine Urobilinogen Normal (NEGATIVE) mg/dL Ur Leukocyte Esterase Negative (NEGATIVE) Urine WBC 0-5 (0) Ur Squamous Epith Cells Few H (NS,R,O) Urine Bacteria Few H (NS) 05/02/17 05/03/17 05/03/17 Range/Units 20:45 06:05 06:05 WBC 9.0 (4.5-12.0) X10-3/uL RBC 3.80 (3.23-5.20) x10(6)uL Hgb 12.3 (11.5-15.5) g/dL Hct 36.3 (30.0-51.3) % MCV 95.4 (80-96) fL MCH 32.3 (27.7-33.6) pg MCHC 33.8 (32.2-35.4) g/dL RDW 12.3 (11.5-15.5) % Plt Count 228 (125-369) X10(3)uL MPV 9.0 (7.4-10.4) fL Neut % (Auto) 72.1 (46-82) % Lymph % (Auto) 20.3 (13-37) % [place] % (Auto) 7.2 (4-12) % Eos % (Auto) 0 L (1.0-5.0) % Baso % (Auto) 0 (0-2) % Neut # (Auto) 6.6 (1.6-8.3) # Lymph # (Auto) 1.8 (0.6-5.0) # [place] # (Auto) 0.6 (0.0-1.3) # Eos # (Auto) 0.0 (0.0-0.8) # Baso # (Auto) 0.0 (0.0-0.2) # ESR (0-20) mm/hr Sodium 137 (135-145) mmol/L Potassium 4.2 (3.5-5.3) mmol/L Chloride 101 (100-110) mmol/L Carbon Dioxide 29 (21-32) mmol/L BUN 18 (7-18) mg/dL Creatinine 0.9 (0.55-1.02) mg/dL Est Cr Clr Drug Dosing 54.79 mL/min Estimated GFR (MDRD) > 60 (>60) BUN/Creatinine Ratio 20.0 (9-20) Glucose 113 (80-116) mg/dL Calcium 8.7 (8.6-10.2) mg/dL Total Bilirubin 0.4 (0.1-1.3) mg/dL AST 35 H D (5-25) IU/L ALT 25 D (12-36) U/L Alkaline Phosphatase 73 (56-112) IU/L Lactate Dehydrogenase (81-234) U/L Creatine Kinase (60-160) IU/L C-Reactive Protein 0.7 (0.5-0.9) mg/dL Total Protein 6.3 (6.0-8.0) g/dL Albumin 3.0 L (3.2-4.6) g/dL Globulin 3.3 g/dL Albumin/Globulin Ratio 0.9 Urine Color (YELLOW) Urine Appearance (CLEAR) Urine pH (5.0-6.5) Ur Specific [place] (1.010-1.025) Urine Protein (NEGATIVE) mg/dL Urine Glucose (UA) (NEGATIVE) mg/dL Urine Ketones (NEGATIVE) mg/dL Urine Occult Blood (NEGATIVE) Urine Nitrite (NEGATIVE) Urine Bilirubin (NEGATIVE) Urine Urobilinogen (NEGATIVE) mg/dL Ur Leukocyte Esterase (NEGATIVE) Urine WBC (0) Ur Squamous Epith Cells (NS,R,O) Urine Bacteria (NS) 05/03/17 Range/Units 06:05 WBC (4.5-12.0) X10-3/uL RBC (3.23-5.20) x10(6)uL Hgb (11.5-15.5) g/dL Hct (30.0-51.3) % MCV (80-96) fL MCH (27.7-33.6) pg MCHC (32.2-35.4) g/dL RDW (11.5-15.5) % Plt Count (125-369) X10(3)uL MPV (7.4-10.4) fL Neut % (Auto) (46-82) % Lymph % (Auto) (13-37) % [place] % (Auto) (4-12) % Eos % (Auto) (1.0-5.0) % Baso % (Auto) (0-2) % Neut # (Auto) (1.6-8.3) # Lymph # (Auto) (0.6-5.0) # [place] # (Auto) (0.0-1.3) # Eos # (Auto) (0.0-0.8) # Baso # (Auto) (0.0-0.2) # ESR 17 (0-20) mm/hr Sodium (135-145) mmol/L Potassium (3.5-5.3) mmol/L Chloride (100-110) mmol/L Carbon Dioxide (21-32) mmol/L BUN (7-18) mg/dL Creatinine (0.55-1.02) mg/dL Est Cr Clr Drug Dosing mL/min Estimated GFR (MDRD) (>60) BUN/Creatinine Ratio (9-20) Glucose (80-116) mg/dL Calcium (8.6-10.2) mg/dL Total Bilirubin (0.1-1.3) mg/dL AST (5-25) IU/L ALT (12-36) U/L Alkaline Phosphatase (56-112) IU/L Lactate Dehydrogenase (81-234) U/L Creatine Kinase (60-160) IU/L C-Reactive Protein (0.5-0.9) mg/dL Total Protein (6.0-8.0) g/dL Albumin (3.2-4.6) g/dL Globulin g/dL Albumin/Globulin Ratio Urine Color (YELLOW) Urine Appearance (CLEAR) Urine pH (5.0-6.5) Ur Specific [place] (1.010-1.025) Urine Protein (NEGATIVE) mg/dL Urine Glucose (UA) (NEGATIVE) mg/dL Urine Ketones (NEGATIVE) mg/dL Urine Occult Blood (NEGATIVE) Urine Nitrite (NEGATIVE) Urine Bilirubin (NEGATIVE) Urine Urobilinogen (NEGATIVE) mg/dL Ur Leukocyte Esterase (NEGATIVE) Urine WBC (0) Ur Squamous Epith Cells (NS,R,O) Urine Bacteria (NS) Med Orders - Current: Current Medications Acetaminophen (Tylenol) 650 mg RECTAL Q4H PRN PRN Reason: Mild pain/fever Acetaminophen (Tylenol) 650 mg PO Q4H PRN PRN Reason: Abdominal Pain Diatrizoate Meglum/Diatrizoate Sod (Gastrografin 37%) 30 ml PO . DIRECTED [facility] Last Admin: 05/02/17 11:39 Dose: 30 ml Fentanyl (Sublimaze) 100 mcg IVPUSH Q1H PRN PRN Reason: Abdominal Pain Last Admin: 05/03/17 08:16 Dose: 100 mcg Sodium Chloride (Normal Saline) 1,000 mls @ 100 mls/hr IV ASDIRECTED [facility] Stop: 05/03/17 17:16 Last Admin: 05/03/17 04:41 Dose: 100 mls/hr Ketorolac Tromethamine (Toradol) 30 mg IVPUSH Q6H PRN PRN Reason: Pain Stop: 05/07/17 20:05 Last Admin: 05/03/17 02:37 Dose: 30 mg Ondansetron HCl (Zofran Odt) 4 mg PO Q4H PRN PRN Reason: nausea, able to take PO Last Admin: 05/03/17 04:46 Dose: 4 mg Pantoprazole Sodium (Protonix Iv) 40 mg IVPUSH DAILY [facility] Last Admin: 05/03/17 09:07 Dose: 40 mg Sodium Chloride (Saline Flush) 10 ml FLUSH ASDIRECTED PRN PRN Reason: Keep Vein Open Last Admin: 05/02/17 20:25 Dose: 10 ml Temazepam (Restoril) 7.5 mg PO BEDTIME PRN PRN Reason: Sleep Discontinued Medications Fentanyl (Sublimaze) 50 mcg IVPUSH Q30M PRN PRN Reason: Abdominal Pain Last Admin: 05/02/17 18:51 Dose: 50 mcg Sodium Chloride (Normal Saline) 1,000 mls @ 999 mls/hr IV ASDIRECTED [facility] Last Admin: 05/02/17 09:45 Dose: 999 mls/hr Sodium Chloride (Normal Saline) 1,000 mls @ 999 mls/hr IV ASDIRECTED [facility] Sodium Chloride (Normal Saline) 1,000 mls @ 999 mls/hr IV ASDIRECTED ONE Stop: 05/02/17 21:45 Last Admin: 05/02/17 20:50 Dose: 999 mls/hr Iopamidol (Isovue-370 (76%)) 75 ml IV ONETIME ONE Stop: 05/02/17 11:31 Last Admin: 05/02/17 11:39 Dose: 73 ml Ketorolac Tromethamine (Toradol) 30 mg IVPUSH ONETIME ONE Stop: 05/02/17 09:27 Last Admin: 05/02/17 09:48 Dose: 30 mg Morphine Sulfate (Morphine) 4 mg IVPUSH ONETIME ONE Stop: 05/02/17 09:29 Last Admin: 05/02/17 09:48 Dose: 4 mg Morphine Sulfate (Morphine) 2 mg IVPUSH ONETIME ONE Stop: 05/02/17 10:50 Last Admin: 05/02/17 10:54 Dose: 2 mg Morphine Sulfate (Morphine) 4 mg IVPUSH ONETIME ONE Stop: 05/02/17 12:16 Last Admin: 05/02/17 12:30 Dose: 4 mg Ondansetron HCl (Zofran) 4 mg IVPUSH ONETIME ONE Stop: 05/02/17 09:29 Last Admin: 05/02/17 09:47 Dose: 4 mg - Exam General: Alert, Oriented, Cooperative, No Acute Distress HEENT: Pupils Equal, Pupils Reactive Neck: Supple Lungs: Clear to Auscultation, Normal Respiratory Effort (Crackles in the dependent lung until deep inspiration cleared.) Cardiovascular: Regular Rate, Regular Rhythm, No Murmurs GI/Abdominal Exam: Normal Bowel Sounds, Soft, Tender (No longer guarding and tenderness seems significantly diminished.) Extremities: Normal Inspection, No Pedal Edema - Problem List & Annotations (1) Abdominal pain SNOMED Code(s): 25305938 Code(s): R10.9 - UNSPECIFIED ABDOMINAL PAIN Status: Acute Current Visit: Yes Annotation/Comment:: Unclear etiology. Given the normal vital signs, normal white count with a slight left shift, normal CRP, and very unusual findings on CT, at this point I think the most prudent thing would be to consult general surgery for their expertise and to treat the patient with IV hydration, keep her nothing by mouth, and control her pain with IV narcotics. The patient's labs and exam are not consistent with Crohn's disease, particularly given her age and lack of family history of autoimmune disease. CT scan showed a normal appendix, does not appear to be infectious with normal labs , no current diarrhea, and no possible exposure to foods or animals that would be high risk for Escherichia coli or salmonella. We will order stool studies in case she has diarrhea later today. We'll follow vital signs and labs closely. (2) HTN (hypertension) SNOMED Code(s): 44124625 Code(s): I10 - ESSENTIAL (PRIMARY) HYPERTENSION Status: Acute Current Visit: Yes Annotation/Comment:: Currently stable. Continue to hold blood pressure pills. (3) OAB (overactive bladder) SNOMED Code(s): 323169443 Code(s): N32.81 - OVERACTIVE BLADDER Status: Acute Current Visit: Yes Annotation/Comment:: Hold by mouth medications until symptoms have resolved. (4) DVT prophylaxis SNOMED Code(s): 607581156 Code(s): ZMV0512 - Status: Acute Current Visit: Yes Annotation/Comment :: SCDs, ambulation as able, AUDRA hose. Hold off on lovenox for now. - Problem List Review Problem List Initiated/Reviewed/Updated: Yes - My Orders Last 24 Hours: My Active Orders 05/02/17 17:08 Consult to Physician [CONS] Routine 05/02/17 17:10 Notify Provider Consults [RC] ASDIRECTED 05/02/17 17:11 CULTURE-STOOL [MREF] Routine LACTOFERRIN, FECAL BY IFTIKHAR Routine 05/02/17 17:12 Oxygen Therapy [RC] PRN Vital Signs [RC] 08,12,16,20,00,04 Resuscitation Status Routine 05/02/17 17:13 Up ad Dee [RC] ASDIRECTED Acetaminophen [Tylenol] 650 mg RECTAL Q4H PRN Ondansetron [Zofran ODT] 4 mg PO Q4H PRN Temazepam [Restoril] 7.5 mg PO BEDTIME PRN 05/02/17 17:14 Notify Provider Vital Signs [RC] ASDIRECTED Pulse Oximetry [RC] PRN 05/02/17 17:15 Ambulate [RC] PER UNIT ROUTINE Sodium Chloride 0.9% [Normal Saline] 1,000 ml IV ASDIRECTED Antiembolic Hose [OM.PC] Per Unit Routine Sequential Compression Device [OM.PC] Per Unit Routine 05/02/17 19:00 Sodium Chloride 0.9% [Saline Flush] 10 ml FLUSH ASDIRECTED PRN
[2017-05-03] MEDS ORDERED: Ranitidine 15 MG/ML Syrup ML (473 ML Bottle) PO SCH (09:30)
[2017-05-03] MEDS: LORazepam 2 MG/ML SDV IVPUSH PRN (11:45)
[2017-05-03] MEDS: Famotidine 20 MG Tab PO SCH (20:44)
[2017-05-03] MEDS ORDERED: Sodium Chloride 0.9% 1,000 ML IV ONE (22:27)
[2017-05-04] MEDS: fentaNYL 100 MCG/2 ML SDV IVPUSH PRN ×4 (02:58→21:11)
[2017-05-04] MEDS: Sodium Chloride 0.9% 1,000 ML IV SCH ×6 (03:00→23:45)
[2017-05-04] MEDS: Ondansetron 4 MG Tab.DIS PO PRN (04:20)
[2017-05-04] MEDS: Ketorolac 30 MG/ML SDV IVPUSH PRN (05:41)
--- NOTE | 2017-05-04 07:14 | PCM.PN ---
- General Info Date of Service: 05/04/17 Subjective Update: Patient is a 61-year-old female currently on hospital day #3 abdominal pain, nausea. The patient started vomiting last evening and vomited all night. An NG was placed early this morning. This is given her great relief. The vomiting also relieved her abdominal pain significantly. She has had 500 mL of bile- colored fluid out. She is much more comfortable this morning. Functional Status: Reports: Pain Controlled - Patient Data Vitals - Most Recent: Last Vital Signs Temp 37.1 C 05/04/17 04:00 Pulse 99 05/04/17 04:00 Resp 16 05/04/17 04:00 BP 118/81 05/04/17 04:00 Pulse Ox 92 L 05/04/17 04:00 Weight - Most Recent: 70.76 kg I&O - Last 24 Hours: Intake & Output 05/03/17 05/04/17 05/04/17 22:59 06:59 14:59 Intake Total 657 1000 Output Total 800 875 Balance -143 125 Lab Results Last 24 Hours: Laboratory Results - last 24 hr 05/03/17 05/03/17 05/03/17 Range/Units 06:05 06:05 06:05 WBC 9.0 (4.5-12.0) X10-3/uL RBC 3.80 (3.23-5.20) x10(6)uL Hgb 12.3 (11.5-15.5) g/dL Hct 36.3 (30.0-51.3) % MCV 95.4 (80-96) fL MCH 32.3 (27.7-33.6) pg MCHC 33.8 (32.2-35.4) g/dL RDW 12.3 (11.5-15.5) % Plt Count 228 (125-369) X10(3)uL MPV 9.0 (7.4-10.4) fL Neut % (Auto) 72.1 (46-82) % Lymph % (Auto) 20.3 (13-37) % [place] % (Auto) 7.2 (4-12) % Eos % (Auto) 0 L (1.0-5.0) % Baso % (Auto) 0 (0-2) % Neut # (Auto) 6.6 (1.6-8.3) # Lymph # (Auto) 1.8 (0.6-5.0) # [place] # (Auto) 0.6 (0.0-1.3) # Eos # (Auto) 0.0 (0.0-0.8) # Baso # (Auto) 0.0 (0.0-0.2) # ESR 17 (0-20) mm/hr Sodium 137 (135-145) mmol/L Potassium 4.2 (3.5-5.3) mmol/L Chloride 101 (100-110) mmol/L Carbon Dioxide 29 (21-32) mmol/L BUN 18 (7-18) mg/dL Creatinine 0.9 (0.55-1.02) mg/dL Est Cr Clr Drug Dosing 54.79 mL/min Estimated GFR (MDRD) > 60 (>60) BUN/Creatinine Ratio 20.0 (9-20) Glucose 113 (80-116) mg/dL Calcium 8.7 (8.6-10.2) mg/dL Total Bilirubin 0.4 (0.1-1.3) mg/dL AST 35 H D (5-25) IU/L ALT 25 D (12-36) U/L Alkaline Phosphatase 73 (56-112) IU/L Total Protein 6.3 (6.0-8.0) g/dL Albumin 3.0 L (3.2-4.6) g/dL Globulin 3.3 g/dL Albumin/Globulin Ratio 0.9 Med Orders - Current: Current Medications Acetaminophen (Tylenol) 650 mg RECTAL Q4H PRN PRN Reason: Mild pain/fever Acetaminophen (Tylenol) 650 mg PO Q4H PRN PRN Reason: Abdominal Pain Diatrizoate Meglum/Diatrizoate Sod (Gastrografin 37%) 30 ml PO . DIRECTED [facility] Last Admin: 05/02/17 11:39 Dose: 30 ml Famotidine (Pepcid) 20 mg PO BID [facility] Last Admin: 05/03/17 20:44 Dose: 20 mg Fentanyl (Sublimaze) 100 mcg IVPUSH Q1H PRN PRN Reason: Abdominal Pain Last Admin: 05/04/17 02:58 Dose: 100 mcg Sodium Chloride (Normal Saline) 1,000 mls @ 125 mls/hr IV ASDIRECTED [facility] Last Admin: 05/04/17 03:00 Dose: 125 mls/hr Ketorolac Tromethamine (Toradol) 30 mg IVPUSH Q6H PRN PRN Reason: Pain Stop: 05/07/17 20:05 Last Admin: 05/04/17 05:41 Dose: 30 mg Lorazepam (Ativan) 1 mg IVPUSH DAILY PRN PRN Reason: Anxiety Last Admin: 05/03/17 11:45 Dose: 1 mg Ondansetron HCl (Zofran Odt) 4 mg PO Q4H PRN PRN Reason: nausea, able to take PO Last Admin: 05/04/17 04:20 Dose: 4 mg Pantoprazole Sodium (Protonix Iv) 40 mg IVPUSH DAILY [facility] Last Admin: 05/03/17 09:07 Dose: 40 mg Sodium Chloride (Saline Flush) 10 ml FLUSH ASDIRECTED PRN PRN Reason: Keep Vein Open Last Admin: 05/02/17 20:25 Dose: 10 ml Temazepam (Restoril) 7.5 mg PO BEDTIME PRN PRN Reason: Sleep Discontinued Medications Fentanyl (Sublimaze) 50 mcg IVPUSH Q30M PRN PRN Reason: Abdominal Pain Last Admin: 05/02/17 18:51 Dose: 50 mcg Sodium Chloride (Normal Saline) 1,000 mls @ 999 mls/hr IV ASDIRECTED [facility] Last Admin: 05/02/17 09:45 Dose: 999 mls/hr Sodium Chloride (Normal Saline) 1,000 mls @ 100 mls/hr IV ASDIRECTED [facility] Stop: 05/03/17 17:16 Last Admin: 05/03/17 15:34 Dose: 100 mls/hr Sodium Chloride (Normal Saline) 1,000 mls @ 999 mls/hr IV ASDIRECTED [facility] Sodium Chloride (Normal Saline) 1,000 mls @ 999 mls/hr IV ASDIRECTED ONE Stop: 05/02/17 21:45 Last Admin: 05/02/17 20:50 Dose: 999 mls/hr Sodium Chloride (Normal Saline) 1,000 mls @ 999 mls/hr IV .BOLUS ONE Stop: 05/03/17 23:27 Last Admin: 05/03/17 22:47 Dose: 999 mls/hr Iopamidol (Isovue-370 (76%)) 75 ml IV ONETIME ONE Stop: 05/02/17 11:31 Last Admin: 05/02/17 11:39 Dose: 73 ml Ketorolac Tromethamine (Toradol) 30 mg IVPUSH ONETIME ONE Stop: 05/02/17 09:27 Last Admin: 05/02/17 09:48 Dose: 30 mg Morphine Sulfate (Morphine) 4 mg IVPUSH ONETIME ONE Stop: 05/02/17 09:29 Last Admin: 05/02/17 09:48 Dose: 4 mg Morphine Sulfate (Morphine) 2 mg IVPUSH ONETIME ONE Stop: 05/02/17 10:50 Last Admin: 05/02/17 10:54 Dose: 2 mg Morphine Sulfate (Morphine) 4 mg IVPUSH ONETIME ONE Stop: 05/02/17 12:16 Last Admin: 05/02/17 12:30 Dose: 4 mg Ondansetron HCl (Zofran) 4 mg IVPUSH ONETIME ONE Stop: 05/02/17 09:29 Last Admin: 05/02/17 09:47 Dose: 4 mg Ranitidine HCl (Zantac) 150 mg PO BID [facility] Last Admin: 05/03/17 10:02 Dose: 150 mg - Exam General: Alert, Oriented, Cooperative, No Acute Distress (NG in place. Dark green output.) HEENT: Pupils Equal, Pupils Reactive Neck: Supple Lungs: Clear to Auscultation, Normal Respiratory Effort Cardiovascular: Regular Rate, Regular Rhythm, No Murmurs (Occasional extra beat) GI/Abdominal Exam: Soft, No Distention, No Mass, Tender (Very minimally tender. Pain much improved.) Back Exam: Normal Inspection Extremities: No Pedal Edema Psy/Mental Status: Alert - Problem List & Annotations (1) Abdominal pain SNOMED Code(s): 21303659 Code(s): R10.9 - UNSPECIFIED ABDOMINAL PAIN Status: Acute Current Visit: Yes Annotation/Comment:: Symptoms now appear more consistent with a bowel obstruction. Repeat x-rays this morning. Continue NG placement, pain management. Labs pending. (2) HTN (hypertension) SNOMED Code(s): 73637979 Code(s): I10 - ESSENTIAL (PRIMARY) HYPERTENSION Status: Acute Current Visit: Yes Annotation/Comment:: Currently stable. Continue to hold blood pressure pills. (3) OAB (overactive bladder) SNOMED Code(s): 272190868 Code(s): N32.81 - OVERACTIVE BLADDER Status: Acute Current Visit: Yes Annotation/Comment:: Hold by mouth medications until symptoms have resolved. (4) DVT prophylaxis SNOMED Code(s): 668753513 Code(s): AJM0223 - Status: Acute Current Visit: Yes Annotation/Comment :: SCDs, ambulation as able, AUDRA hose. Hold off on lovenox for now. - Problem List Review Problem List Initiated/Reviewed/Updated: Yes - My Orders Last 24 Hours: My Active Orders 05/03/17 10:09 LORazepam [Ativan] 1 mg IVPUSH DAILY PRN 05/03/17 21:00 Famotidine [Pepcid] 20 mg PO BID 05/04/17 07:08 Abdomen 3V Comp Upright Decub [CR] Stat
[2017-05-04] MEDS ORDERED: Bisacodyl 10 MG Supp RECTAL ONE (09:40)
[2017-05-04] MEDS ORDERED: Lactated Ringers 1,000 ML IV SCH (09:45)
[2017-05-04] MEDS: Pantoprazole 40 MG Vial IVPUSH SCH (09:47)
--- NOTE | 2017-05-04 09:48 | PCM.SURGPN ---
- General Info Date of Service: 05/04/17 - Review of Systems Gastrointestinal: Reports: Flatus, Vomiting (Pt spent the night having multiple bouts of emesis. Also noted not to have had any voiding. lewis and ngt placed. pain is gone. ) - Patient Data Vitals - Most Recent: Last Vital Signs Temp 36.8 C 05/04/17 07:29 Pulse 94 05/04/17 07:29 Resp 16 05/04/17 07:29 BP 118/80 05/04/17 07:29 Pulse Ox 91 L 05/04/17 07:29 Weight - Most Recent: 70.76 kg I&O - Last 24 Hours: Intake & Output 05/03/17 05/04/17 05/04/17 22:59 06:59 14:59 Intake Total 657 1000 Output Total 800 875 200 Balance -143 125 -200 Lab Results Last 24 Hrs: Laboratory Results - last 24 hr 05/04/17 05/04/17 Range/Units 06:55 06:55 WBC 13.3 H (4.5-12.0) X10-3/uL RBC 4.37 (3.23-5.20) x10(6)uL Hgb 13.9 (11.5-15.5) g/dL Hct 41.7 (30.0-51.3) % MCV 95.5 (80-96) fL MCH 31.9 (27.7-33.6) pg MCHC 33.5 (32.2-35.4) g/dL RDW 12.4 (11.5-15.5) % Plt Count 293 (125-369) X10(3)uL MPV 8.8 (7.4-10.4) fL Neut % (Auto) 79.5 (46-82) % Lymph % (Auto) 13.2 (13-37) % [place] % (Auto) 7.0 (4-12) % Eos % (Auto) 0 L (1.0-5.0) % Baso % (Auto) 0 (0-2) % Neut # (Auto) 10.6 H (1.6-8.3) # Lymph # (Auto) 1.8 (0.6-5.0) # [place] # (Auto) 0.9 (0.0-1.3) # Eos # (Auto) 0.0 (0.0-0.8) # Baso # (Auto) 0.0 (0.0-0.2) # Sodium 140 (135-145) mmol/L Potassium 4.4 (3.5-5.3) mmol/L Chloride 102 (100-110) mmol/L Carbon Dioxide 26 (21-32) mmol/L BUN 22 H (7-18) mg/dL Creatinine 0.8 (0.55-1.02) mg/dL Est Cr Clr Drug Dosing 61.64 mL/min Estimated GFR (MDRD) > 60 (>60) BUN/Creatinine Ratio 27.5 H (9-20) Glucose 101 (80-116) mg/dL Calcium 8.7 (8.6-10.2) mg/dL Total Bilirubin 0.4 (0.1-1.3) mg/dL AST 34 H (5-25) IU/L ALT 24 (12-36) U/L Alkaline Phosphatase 69 (56-112) IU/L Total Protein 6.5 (6.0-8.0) g/dL Albumin 3.0 L (3.2-4.6) g/dL Globulin 3.5 g/dL Albumin/Globulin Ratio 0.9 Med Orders - Current: Current Medications Acetaminophen (Tylenol) 650 mg RECTAL Q4H PRN PRN Reason: Mild pain/fever Acetaminophen (Tylenol) 650 mg PO Q4H PRN PRN Reason: Abdominal Pain Bisacodyl (Dulcolax) 10 mg RECTAL ONETIME ONE Stop: 05/04/17 09:41 Diatrizoate Meglum/Diatrizoate Sod (Gastrografin 37%) 30 ml PO . DIRECTED [facility] Last Admin: 05/02/17 11:39 Dose: 30 ml Famotidine (Pepcid) 20 mg PO BID [facility] Last Admin: 05/03/17 20:44 Dose: 20 mg Fentanyl (Sublimaze) 100 mcg IVPUSH Q1H PRN PRN Reason: Abdominal Pain Last Admin: 05/04/17 02:58 Dose: 100 mcg Sodium Chloride (Normal Saline) 1,000 mls @ 125 mls/hr IV ASDIRECTED [facility] Last Admin: 05/04/17 03:00 Dose: 125 mls/hr Ketorolac Tromethamine (Toradol) 30 mg IVPUSH Q6H PRN PRN Reason: Pain Stop: 05/07/17 20:05 Last Admin: 05/04/17 05:41 Dose: 30 mg Lorazepam (Ativan) 1 mg IVPUSH DAILY PRN PRN Reason: Anxiety Last Admin: 05/03/17 11:45 Dose: 1 mg Ondansetron HCl (Zofran Odt) 4 mg PO Q4H PRN PRN Reason: nausea, able to take PO Last Admin: 05/04/17 04:20 Dose: 4 mg Pantoprazole Sodium (Protonix Iv) 40 mg IVPUSH DAILY [facility] Last Admin: 05/03/17 09:07 Dose: 40 mg Sodium Chloride (Saline Flush) 10 ml FLUSH ASDIRECTED PRN PRN Reason: Keep Vein Open Last Admin: 05/02/17 20:25 Dose: 10 ml Temazepam (Restoril) 7.5 mg PO BEDTIME PRN PRN Reason: Sleep Discontinued Medications Fentanyl (Sublimaze) 50 mcg IVPUSH Q30M PRN PRN Reason: Abdominal Pain Last Admin: 05/02/17 18:51 Dose: 50 mcg Sodium Chloride (Normal Saline) 1,000 mls @ 999 mls/hr IV ASDIRECTED [facility] Last Admin: 05/02/17 09:45 Dose: 999 mls/hr Sodium Chloride (Normal Saline) 1,000 mls @ 100 mls/hr IV ASDIRECTED [facility] Stop: 05/03/17 17:16 Last Admin: 05/03/17 15:34 Dose: 100 mls/hr Sodium Chloride (Normal Saline) 1,000 mls @ 999 mls/hr IV ASDIRECTED [facility] Sodium Chloride (Normal Saline) 1,000 mls @ 999 mls/hr IV ASDIRECTED ONE Stop: 05/02/17 21:45 Last Admin: 05/02/17 20:50 Dose: 999 mls/hr Sodium Chloride (Normal Saline) 1,000 mls @ 999 mls/hr IV .BOLUS ONE Stop: 05/03/17 23:27 Last Admin: 05/03/17 22:47 Dose: 999 mls/hr Iopamidol (Isovue-370 (76%)) 75 ml IV ONETIME ONE Stop: 05/02/17 11:31 Last Admin: 05/02/17 11:39 Dose: 73 ml Ketorolac Tromethamine (Toradol) 30 mg IVPUSH ONETIME ONE Stop: 05/02/17 09:27 Last Admin: 05/02/17 09:48 Dose: 30 mg Morphine Sulfate (Morphine) 4 mg IVPUSH ONETIME ONE Stop: 05/02/17 09:29 Last Admin: 05/02/17 09:48 Dose: 4 mg Morphine Sulfate (Morphine) 2 mg IVPUSH ONETIME ONE Stop: 05/02/17 10:50 Last Admin: 05/02/17 10:54 Dose: 2 mg Morphine Sulfate (Morphine) 4 mg IVPUSH ONETIME ONE Stop: 05/02/17 12:16 Last Admin: 05/02/17 12:30 Dose: 4 mg Ondansetron HCl (Zofran) 4 mg IVPUSH ONETIME ONE Stop: 05/02/17 09:29 Last Admin: 05/02/17 09:47 Dose: 4 mg Ranitidine HCl (Zantac) 150 mg PO BID [facility] Last Admin: 05/03/17 10:02 Dose: 150 mg - Exam General: Alert, Cooperative, No Acute Distress Lungs: Clear to Auscultation, Normal Respiratory Effort Cardiovascular: Regular Rate, Regular Rhythm GI/Abdominal Exam: Soft, Non-Tender, Abnormal Bowel Sounds (hyperactive ) - Problem List & Annotations (1) Abdominal pain SNOMED Code(s): 72223899 Code(s): R10.9 - UNSPECIFIED ABDOMINAL PAIN Status: Acute Current Visit: Yes Annotation/Comment:: Symptoms now appear more consistent with a bowel obstruction. Repeat x-rays this morning. Continue NG placement, pain management. Labs pending. - Problem List Review Problem List Initiated/Reviewed/Updated: Yes - My Orders Last 24 Hours: Active Orders 24 hr Category Date Time Status Insert Urinary Catheter [OM.PC] Q24H Care 05/04/17 06:15 Ordered Urinary Catheter Assessment [RC] 08,16,00 Care 05/04/17 06:10 Active Abdomen 3V Comp Upright Decub [CR] Stat Exams 05/04/17 07:08 Taken Bisacodyl [Dulcolax] Med 05/04/17 09:40 Once 10 mg RECTAL ONETIME ONE Famotidine [Pepcid] Med 05/03/17 21:00 Active 20 mg PO BID LORazepam [Ativan] Med 05/03/17 10:09 Active 1 mg IVPUSH DAILY PRN Lactated Ringers [Ringers, Lactated] 1,000 ml Med 05/04/17 09:45 Ordered IV ASDIRECTED Pantoprazole [ProTONIX IV] Med 05/03/17 09:00 Active 40 mg IVPUSH DAILY Sodium Chloride 0.9% [Normal Saline] 1,000 ml Med 05/04/17 03:15 Active IV ASDIRECTED Medication Orders Acetaminophen (Tylenol) 650 mg RECTAL Q4H PRN PRN Reason: Mild pain/fever Acetaminophen (Tylenol) 650 mg PO Q4H PRN PRN Reason: Abdominal Pain Bisacodyl (Dulcolax) 10 mg RECTAL ONETIME ONE Stop: 05/04/17 09:41 Diatrizoate Meglum/Diatrizoate Sod (Gastrografin 37%) 30 ml PO . DIRECTED [facility] Last Admin: 05/02/17 11:39 Dose: 30 ml Famotidine (Pepcid) 20 mg PO BID [facility] Last Admin: 05/03/17 20:44 Dose: 20 mg Fentanyl (Sublimaze) 100 mcg IVPUSH Q1H PRN PRN Reason: Abdominal Pain Last Admin: 05/04/17 02:58 Dose: 100 mcg Admin: 05/03/17 09:44 Dose: 100 mcg Admin: 05/03/17 08:16 Dose: 100 mcg Admin: 05/03/17 06:20 Dose: 100 mcg Admin: 05/03/17 04:21 Dose: 100 mcg Admin: 05/03/17 01:13 Dose: 100 mcg Admin: 05/02/17 23:29 Dose: 100 mcg Sodium Chloride (Normal Saline) 1,000 mls @ 125 mls/hr IV ASDIRECTED [facility] Last Admin: 05/04/17 03:00 Dose: 125 mls/hr Ketorolac Tromethamine (Toradol) 30 mg IVPUSH Q6H PRN PRN Reason: Pain Stop: 05/07/17 20:05 Last Admin: 05/04/17 05:41 Dose: 30 mg Admin: 05/03/17 22:03 Dose: 30 mg Admin: 05/03/17 16:02 Dose: 30 mg Admin: 05/03/17 02:37 Dose: 30 mg Admin: 05/02/17 20:24 Dose: 30 mg Lorazepam (Ativan) 1 mg IVPUSH DAILY PRN PRN Reason: Anxiety Last Admin: 05/03/17 11:45 Dose: 1 mg Ondansetron HCl (Zofran Odt) 4 mg PO Q4H PRN PRN Reason: nausea, able to take PO Last Admin: 05/04/17 04:20 Dose: 4 mg Admin: 05/03/17 04:46 Dose: 4 mg Pantoprazole Sodium (Protonix Iv) 40 mg IVPUSH DAILY [facility] Last Admin: 05/03/17 09:07 Dose: 40 mg Sodium Chloride (Saline Flush) 10 ml FLUSH ASDIRECTED PRN PRN Reason: Keep Vein Open Last Admin: 05/02/17 20:25 Dose: 10 ml Temazepam (Restoril) 7.5 mg PO BEDTIME PRN PRN Reason: Sleep - Assessment Assessment (Free Text/Narrative):: some air fluid levels on kub stool in the ascending colon still, as compared to the CT scan. possiblity of a partial sbo cannot be excluded at this point. - Plan Plan (Free Text/Narrative):: continue ngt will stop toradol, stop oral Pepcid. another bolus of IV fluids this am
[2017-05-04] MEDS ORDERED: Sodium Chloride 0.9% 1,000 ML IV SCH (17:45)
[2017-05-04] MEDS: Famotidine 20 MG Tab PO SCH (19:45)
[2017-05-04] MEDS: Sodium Chloride 0.9% 10 ML Syringe FLUSH PRN (21:13)
[2017-05-05] MEDS: fentaNYL 100 MCG/2 ML SDV IVPUSH PRN ×8 (00:11→21:02)
[2017-05-05] MEDS: Sodium Chloride 0.9% 1,000 ML IV SCH ×2 (07:20→16:58)
--- NOTE | 2017-05-05 07:51 | PCM.SURGPN ---
- General Info Date of Service: 05/05/17 - Review of Systems Gastrointestinal: Reports: Other (Pt had a small bowel movement yesterday. Her pain is now intermitent cramping. Does feel a little better this am. Her NGT output has dropped off significantly, and is now clear. ) - Patient Data Vitals - Most Recent: Last Vital Signs Temp 36.9 C 05/05/17 04:00 Pulse 90 05/05/17 04:00 Resp 18 05/05/17 04:00 BP 104/72 05/05/17 04:00 Pulse Ox 93 L 05/05/17 00:00 Weight - Most Recent: 70.76 kg I&O - Last 24 Hours: Intake & Output 05/04/17 05/05/17 05/05/17 22:59 06:59 14:59 Intake Total 1114 1010 185 Output Total 950 350 Balance 164 660 185 Lab Results Last 24 Hrs: Laboratory Results - last 24 hr 05/05/17 05/05/17 Range/Units 05:45 05:45 WBC 10.1 (4.5-12.0) X10-3/uL RBC 3.62 (3.23-5.20) x10(6)uL Hgb 11.5 (11.5-15.5) g/dL Hct 34.7 (30.0-51.3) % MCV 96.0 (80-96) fL MCH 31.8 (27.7-33.6) pg MCHC 33.1 (32.2-35.4) g/dL RDW 12.7 (11.5-15.5) % Plt Count 233 (125-369) X10(3)uL MPV 8.9 (7.4-10.4) fL Neut % (Auto) 71.6 (46-82) % Lymph % (Auto) 15.5 (13-37) % [place] % (Auto) 11.0 (4-12) % Eos % (Auto) 0 L (1.0-5.0) % Baso % (Auto) 2 (0-2) % Neut # (Auto) 7.2 (1.6-8.3) # Lymph # (Auto) 1.6 (0.6-5.0) # [place] # (Auto) 1.1 (0.0-1.3) # Eos # (Auto) 0.0 (0.0-0.8) # Baso # (Auto) 0.2 (0.0-0.2) # Sodium 142 (135-145) mmol/L Potassium 3.7 (3.5-5.3) mmol/L Chloride 107 D (100-110) mmol/L Carbon Dioxide 22 (21-32) mmol/L BUN 21 H (7-18) mg/dL Creatinine 0.6 (0.55-1.02) mg/dL Est Cr Clr Drug Dosing 82.18 mL/min Estimated GFR (MDRD) > 60 (>60) BUN/Creatinine Ratio 35.0 H (9-20) Glucose 65 L (80-116) mg/dL Calcium 7.6 L (8.6-10.2) mg/dL [place] Results Last 24 Hrs: Microbiology 05/04/17 17:25 Occult Blood - Preliminary Stool / Feces Med Orders - Current: Current Medications Acetaminophen (Tylenol) 650 mg RECTAL Q4H PRN PRN Reason: Mild pain/fever Acetaminophen (Tylenol) 650 mg PO Q4H PRN PRN Reason: Abdominal Pain Diatrizoate Meglum/Diatrizoate Sod (Gastrografin 37%) 30 ml PO . DIRECTED [facility] Last Admin: 05/02/17 11:39 Dose: 30 ml Fentanyl (Sublimaze) 100 mcg IVPUSH Q1H PRN PRN Reason: Abdominal Pain Last Admin: 05/05/17 06:02 Dose: 100 mcg Sodium Chloride (Normal Saline) 1,000 mls @ 125 mls/hr IV ASDIRECTED [facility] Last Admin: 05/05/17 07:20 Dose: 125 mls/hr Lactated Ringer's (Ringers, Lactated) 1,000 mls @ 999 mls/hr IV ASDIRECTED [facility] Last Admin: 05/04/17 11:23 Dose: 999 mls/hr Sodium Chloride (Normal Saline) 1,000 mls @ 999 mls/hr IV ASDIRECTED [facility] Stop: 05/05/17 14:31 Last Admin: 05/04/17 14:22 Dose: 999 mls/hr Sodium Chloride (Normal Saline) 1,000 mls @ 500 mls/hr IV ASDIRECTED [facility] Lorazepam (Ativan) 1 mg IVPUSH DAILY PRN PRN Reason: Anxiety Last Admin: 05/03/17 11:45 Dose: 1 mg Ondansetron HCl (Zofran Odt) 4 mg PO Q4H PRN PRN Reason: nausea, able to take PO Last Admin: 05/04/17 04:20 Dose: 4 mg Pantoprazole Sodium (Protonix Iv) 40 mg IVPUSH DAILY [facility] Last Admin: 05/04/17 09:47 Dose: 40 mg Sodium Chloride (Saline Flush) 10 ml FLUSH ASDIRECTED PRN PRN Reason: Keep Vein Open Last Admin: 05/04/17 21:13 Dose: 10 ml Temazepam (Restoril) 7.5 mg PO BEDTIME PRN PRN Reason: Sleep Discontinued Medications Bisacodyl (Dulcolax) 10 mg RECTAL ONETIME ONE Stop: 05/04/17 09:41 Last Admin: 05/04/17 10:23 Dose: 10 mg Famotidine (Pepcid) 20 mg PO BID [facility] Last Admin: 05/04/17 19:45 Dose: Not Given Fentanyl (Sublimaze) 50 mcg IVPUSH Q30M PRN PRN Reason: Abdominal Pain Last Admin: 05/02/17 18:51 Dose: 50 mcg Sodium Chloride (Normal Saline) 1,000 mls @ 999 mls/hr IV ASDIRECTED [facility] Last Admin: 05/02/17 09:45 Dose: 999 mls/hr Sodium Chloride (Normal Saline) 1,000 mls @ 100 mls/hr IV ASDIRECTED [facility] Stop: 05/03/17 17:16 Last Admin: 05/03/17 15:34 Dose: 100 mls/hr Sodium Chloride (Normal Saline) 1,000 mls @ 999 mls/hr IV ASDIRECTED [facility] Sodium Chloride (Normal Saline) 1,000 mls @ 999 mls/hr IV ASDIRECTED ONE Stop: 05/02/17 21:45 Last Admin: 05/02/17 20:50 Dose: 999 mls/hr Sodium Chloride (Normal Saline) 1,000 mls @ 999 mls/hr IV .BOLUS ONE Stop: 05/03/17 23:27 Last Admin: 05/03/17 22:47 Dose: 999 mls/hr Iopamidol (Isovue-370 (76%)) 75 ml IV ONETIME ONE Stop: 05/02/17 11:31 Last Admin: 05/02/17 11:39 Dose: 73 ml Ketorolac Tromethamine (Toradol) 30 mg IVPUSH ONETIME ONE Stop: 05/02/17 09:27 Last Admin: 05/02/17 09:48 Dose: 30 mg Ketorolac Tromethamine (Toradol) 30 mg IVPUSH Q6H PRN PRN Reason: Pain Stop: 05/07/17 20:05 Last Admin: 05/04/17 05:41 Dose: 30 mg Morphine Sulfate (Morphine) 4 mg IVPUSH ONETIME ONE Stop: 05/02/17 09:29 Last Admin: 05/02/17 09:48 Dose: 4 mg Morphine Sulfate (Morphine) 2 mg IVPUSH ONETIME ONE Stop: 05/02/17 10:50 Last Admin: 05/02/17 10:54 Dose: 2 mg Morphine Sulfate (Morphine) 4 mg IVPUSH ONETIME ONE Stop: 05/02/17 12:16 Last Admin: 05/02/17 12:30 Dose: 4 mg Ondansetron HCl (Zofran) 4 mg IVPUSH ONETIME ONE Stop: 05/02/17 09:29 Last Admin: 05/02/17 09:47 Dose: 4 mg Ranitidine HCl (Zantac) 150 mg PO BID [facility] Last Admin: 05/03/17 10:02 Dose: 150 mg - Exam General: Alert, Cooperative, No Acute Distress Lungs: Clear to Auscultation, Normal Respiratory Effort Cardiovascular: Regular Rate, Regular Rhythm GI/Abdominal Exam: Soft, Abnormal Bowel Sounds (slightly hypoactive ). No: Guarding, Rigid, Rebound Skin: Warm, Dry, Intact - Problem List & Annotations (1) Abdominal pain SNOMED Code(s): 26122522 Code(s): R10.9 - UNSPECIFIED ABDOMINAL PAIN Status: Acute Current Visit: Yes Annotation/Comment:: Symptoms now appear more consistent with a bowel obstruction. Repeat x-rays this morning. Continue NG placement, pain management. Labs pending. - Problem List Review Problem List Initiated/Reviewed/Updated: Yes - My Orders Last 24 Hours: Active Orders 24 hr Category Date Time Status Abdomen 3V Comp Upright Decub [CR] Stat Exams 05/04/17 07:08 Taken BASIC METABOLIC PANEL,BMP [CHEM] AM Lab 05/06/17 05:11 Ordered BASIC METABOLIC PANEL,BMP [CHEM] AM Lab 05/07/17 05:11 Ordered CBC WITH AUTO DIFF [HEME] AM Lab 05/06/17 05:11 Ordered CBC WITH AUTO DIFF [HEME] AM Lab 05/07/17 05:11 Ordered CULTURE-STOOL [MREF] Routine Lab 05/04/17 17:25 Received Lactated Ringers [Ringers, Lactated] 1,000 ml Med 05/04/17 09:45 Active IV ASDIRECTED Sodium Chloride 0.9% [Normal Saline] 1,000 ml Med 05/04/17 13:30 Active IV ASDIRECTED Sodium Chloride 0.9% [Normal Saline] 1,000 ml Med 05/04/17 17:45 Active IV ASDIRECTED Medication Orders Acetaminophen (Tylenol) 650 mg RECTAL Q4H PRN PRN Reason: Mild pain/fever Acetaminophen (Tylenol) 650 mg PO Q4H PRN PRN Reason: Abdominal Pain Diatrizoate Meglum/Diatrizoate Sod (Gastrografin 37%) 30 ml PO . DIRECTED [facility] Last Admin: 05/02/17 11:39 Dose: 30 ml Fentanyl (Sublimaze) 100 mcg IVPUSH Q1H PRN PRN Reason: Abdominal Pain Last Admin: 05/05/17 06:02 Dose: 100 mcg Admin: 05/05/17 04:16 Dose: 100 mcg Admin: 05/05/17 00:11 Dose: 100 mcg Admin: 05/04/17 21:11 Dose: 100 mcg Admin: 05/04/17 18:21 Dose: 100 mcg Admin: 05/04/17 13:29 Dose: 100 mcg Admin: 05/04/17 02:58 Dose: 100 mcg Admin: 05/03/17 09:44 Dose: 100 mcg Admin: 05/03/17 08:16 Dose: 100 mcg Admin: 05/03/17 06:20 Dose: 100 mcg Admin: 05/03/17 04:21 Dose: 100 mcg Admin: 05/03/17 01:13 Dose: 100 mcg Admin: 05/02/17 23:29 Dose: 100 mcg Sodium Chloride (Normal Saline) 1,000 mls @ 125 mls/hr IV ASDIRECTED YAZ Last Admin: 05/05/17 07:20 Dose: 125 mls/hr Infusion: 05/05/17 07:20 Dose: 125 mls/hr Admin: 05/04/17 23:45 Dose: 125 mls/hr Infusion: 05/04/17 23:41 Dose: 125 mls/hr Admin: 05/04/17 15:41 Dose: 125 mls/hr Infusion: 05/04/17 15:41 Dose: 125 mls/hr Admin: 05/04/17 12:34 Dose: 125 mls/hr Infusion: 05/04/17 11:00 Dose: 125 mls/hr Admin: 05/04/17 03:00 Dose: 125 mls/hr Lactated Ringer's (Ringers, Lactated) 1,000 mls @ 999 mls/hr IV ASDIRECTED YAZ Last Admin: 05/04/17 11:23 Dose: 999 mls/hr Sodium Chloride (Normal Saline) 1,000 mls @ 999 mls/hr IV ASDIRECTED YAZ Stop: 05/05/17 14:31 Last Admin: 05/04/17 14:22 Dose: 999 mls/hr Infusion: 05/04/17 14:21 Dose: 999 mls/hr Admin: 05/04/17 13:20 Dose: 999 mls/hr Sodium Chloride (Normal Saline) 1,000 mls @ 500 mls/hr IV ASDIRECTED [facility] Lorazepam (Ativan) 1 mg IVPUSH DAILY PRN PRN Reason: Anxiety Last Admin: 05/03/17 11:45 Dose: 1 mg Ondansetron HCl (Zofran Odt) 4 mg PO Q4H PRN PRN Reason: nausea, able to take PO Last Admin: 05/04/17 04:20 Dose: 4 mg Admin: 05/03/17 04:46 Dose: 4 mg Pantoprazole Sodium (Protonix Iv) 40 mg IVPUSH DAILY YAZ Last Admin: 05/04/17 09:47 Dose: 40 mg Admin: 05/03/17 09:07 Dose: 40 mg Sodium Chloride (Saline Flush) 10 ml FLUSH ASDIRECTED PRN PRN Reason: Keep Vein Open Last Admin: 05/04/17 21:13 Dose: 10 ml Admin: 05/02/17 20:25 Dose: 10 ml Temazepam (Restoril) 7.5 mg PO BEDTIME PRN PRN Reason: Sleep - Assessment Assessment (Free Text/Narrative):: clinically slight improvement this am in terms of her NGT output thinning and clearing. exam shows no worrisome signs. WBC is normal. - Plan Plan (Free Text/Narrative):: Discussed options with pt. she would like to continue current therapy. I see no significant contraindication for this approach.
--- NOTE | 2017-05-05 08:38 | CR ---
INDICATION: Abdominal pain, nausea, and vomiting. ABDOMEN 3 VIEWS WITH CHEST: CHEST: PA view of the chest was obtained. No comparisons were available. The date is 05/04/2017. Pleuroparenchymal change is noted at the right lung base, which may be on the basis of pneumonia and pleuritis. Some increased density in the mid lung field on the right may also be related to fluid in the minor fissure. Very minimal blunting of the left costophrenic angle and density in that area raises question of minimal pneumonia and pleuritis at that site. Somewhat flattened diaphragm leaves suggest the possibility of COPD, but should be correlated clinically. A moderate dextroconvex scoliosis of the lower middle thoracic spine is noted. The heart did not appear enlarged. The aorta is somewhat tortuous with calcification in the arch. Nasogastric tube is noted in place with its tip in the proximal gastric body. It could be advanced approximately 10 cm for better positioning. No free air was noted under the hemidiaphragm leaves. IMPRESSION: 1. Probable bibasilar pneumonia and pleuritis and/or atelectasis, right greater than left. 2. Possible COPD. 3. ASD aorta. 4. Scoliosis. 5. Advance nasogastric tube approximately 10 cm for better positioning. ABDOMEN: Four images of the abdomen were obtained in supine and upright projections and revealed multiple air-fluid levels in dilated loops of small bowel, suggesting a distal small-bowel obstruction at the level of the mid or proximal ileum. This should be correlated clinically. No definite free air was seen. Nasogastric tube is noted in place and should be advanced approximately 10 cm for better positioning. Its tip is in the proximal gastric body. Otherwise, no organomegaly was identified. There is an appearance of mass density in the pelvis, which could be on the basis of ascites or a true mass in that area, possibly even simple distention of the urinary bladder. IMPRESSION: 1. Nasogastric tube could be advanced approximately 10 cm for better positioning. 2. Distal small-bowel obstruction of mechanical nature may be present. Further workup may be warranted such as CT (done 05/02/2017). 3. Density in the pelvis makes it difficult to exclude ascites or a mass versus distended urinary bladder. Distended bladder is felt to be more likely since the CT of the abdomen from 05/02/2017 showed no evidence of ascites. Continued small-bowel obstruction is strongly suspected as a mechanical process , also present on the CT examination from 05/02/2017. JULIOD
[2017-05-05] MEDS: Pantoprazole 40 MG Vial IVPUSH SCH (08:48)
[2017-05-05] MEDS ORDERED: Sodium Chloride 0.9% 1,000 ML IV SCH (09:00)
--- NOTE | 2017-05-05 15:45 | PCM.PN ---
- General Info Date of Service: 05/05/17 Subjective Update: Patient continues to have nothing by mouth status with nasogastric tube. Tang is in place. Yesterday she received 4 L of normal saline bolus and still only had 650 out in 24 hours. Pain is improved but she still feels occasional crampiness in the lower abdomen. No nausea. His sore throat from the NG tube. No chest pain, no shortness of breath. - Patient Data Vitals - Most Recent: Last Vital Signs Temp 36.9 C 05/05/17 12:30 Pulse 84 05/05/17 12:30 Resp 18 05/05/17 12:30 BP 119/78 05/05/17 12:30 Pulse Ox 97 05/05/17 12:30 Weight - Most Recent: 70.76 kg I&O - Last 24 Hours: Intake & Output 05/05/17 05/05/17 05/05/17 06:59 14:59 22:59 Intake Total 1010 810 Output Total 350 600 Balance 660 210 Lab Results Last 24 Hours: Laboratory Results - last 24 hr 05/05/17 05/05/17 Range/Units 05:45 05:45 WBC 10.1 (4.5-12.0) X10-3/uL RBC 3.62 (3.23-5.20) x10(6)uL Hgb 11.5 (11.5-15.5) g/dL Hct 34.7 (30.0-51.3) % MCV 96.0 (80-96) fL MCH 31.8 (27.7-33.6) pg MCHC 33.1 (32.2-35.4) g/dL RDW 12.7 (11.5-15.5) % Plt Count 233 (125-369) X10(3)uL MPV 8.9 (7.4-10.4) fL Neut % (Auto) 71.6 (46-82) % Lymph % (Auto) 15.5 (13-37) % Mineral % (Auto) 11.0 (4-12) % Eos % (Auto) 0 L (1.0-5.0) % Baso % (Auto) 2 (0-2) % Neut # (Auto) 7.2 (1.6-8.3) # Lymph # (Auto) 1.6 (0.6-5.0) # Mineral # (Auto) 1.1 (0.0-1.3) # Eos # (Auto) 0.0 (0.0-0.8) # Baso # (Auto) 0.2 (0.0-0.2) # Sodium 142 (135-145) mmol/L Potassium 3.7 (3.5-5.3) mmol/L Chloride 107 D (100-110) mmol/L Carbon Dioxide 22 (21-32) mmol/L BUN 21 H (7-18) mg/dL Creatinine 0.6 (0.55-1.02) mg/dL Est Cr Clr Drug Dosing 82.18 mL/min Estimated GFR (MDRD) > 60 (>60) BUN/Creatinine Ratio 35.0 H (9-20) Glucose 65 L (80-116) mg/dL Calcium 7.6 L (8.6-10.2) mg/dL [place]i Results Last 24 Hours: Microbiology 05/04/17 17:25 Occult Blood - Preliminary Stool / Feces Med Orders - Current: Current Medications Acetaminophen (Tylenol) 650 mg RECTAL Q4H PRN PRN Reason: Mild pain/fever Acetaminophen (Tylenol) 650 mg PO Q4H PRN PRN Reason: Abdominal Pain Diatrizoate Meglum/Diatrizoate Sod (Gastrografin 37%) 30 ml PO . DIRECTED REPLACED BY [facility] Last Admin: 05/02/17 11:39 Dose: 30 ml Fentanyl (Sublimaze) 100 mcg IVPUSH Q1H PRN PRN Reason: Abdominal Pain Last Admin: 05/05/17 15:00 Dose: 100 mcg Sodium Chloride (Normal Saline) 1,000 mls @ 125 mls/hr IV ASDIRECTED REPLACED BY [facility] Last Admin: 05/05/17 07:20 Dose: 125 mls/hr Sodium Chloride (Normal Saline) 1,000 mls @ 500 mls/hr IV ASDIRECTED REPLACED BY [facility] Last Admin: 05/05/17 09:25 Dose: 500 mls/hr Lorazepam (Ativan) 1 mg IVPUSH DAILY PRN PRN Reason: Anxiety Last Admin: 05/03/17 11:45 Dose: 1 mg Ondansetron HCl (Zofran Odt) 4 mg PO Q4H PRN PRN Reason: nausea, able to take PO Last Admin: 05/04/17 04:20 Dose: 4 mg Pantoprazole Sodium (Protonix Iv) 40 mg IVPUSH DAILY REPLACED BY [facility] Last Admin: 05/05/17 08:48 Dose: 40 mg Sodium Chloride (Saline Flush) 10 ml FLUSH ASDIRECTED PRN PRN Reason: Keep Vein Open Last Admin: 05/04/17 21:13 Dose: 10 ml Temazepam (Restoril) 7.5 mg PO BEDTIME PRN PRN Reason: Sleep Discontinued Medications Bisacodyl (Dulcolax) 10 mg RECTAL ONETIME ONE Stop: 05/04/17 09:41 Last Admin: 05/04/17 10:23 Dose: 10 mg Famotidine (Pepcid) 20 mg PO BID REPLACED BY [facility] Last Admin: 05/04/17 19:45 Dose: Not Given Fentanyl (Sublimaze) 50 mcg IVPUSH Q30M PRN PRN Reason: Abdominal Pain Last Admin: 05/02/17 18:51 Dose: 50 mcg Sodium Chloride (Normal Saline) 1,000 mls @ 999 mls/hr IV ASDIRECTED REPLACED BY [facility] Last Admin: 05/02/17 09:45 Dose: 999 mls/hr Sodium Chloride (Normal Saline) 1,000 mls @ 100 mls/hr IV ASDIRECTED REPLACED BY [facility] Stop: 05/03/17 17:16 Last Admin: 05/03/17 15:34 Dose: 100 mls/hr Sodium Chloride (Normal Saline) 1,000 mls @ 999 mls/hr IV ASDIRECTED REPLACED BY [facility] Sodium Chloride (Normal Saline) 1,000 mls @ 999 mls/hr IV ASDIRECTED ONE Stop: 05/02/17 21:45 Last Admin: 05/02/17 20:50 Dose: 999 mls/hr Sodium Chloride (Normal Saline) 1,000 mls @ 999 mls/hr IV .BOLUS ONE Stop: 05/03/17 23:27 Last Admin: 05/03/17 22:47 Dose: 999 mls/hr Lactated Ringer's (Ringers, Lactated) 1,000 mls @ 999 mls/hr IV ASDIRECTED REPLACED BY [facility] Last Admin: 05/04/17 11:23 Dose: 999 mls/hr Sodium Chloride (Normal Saline) 1,000 mls @ 999 mls/hr IV ASDIRECTED REPLACED BY [facility] Stop: 05/05/17 14:31 Last Admin: 05/04/17 14:22 Dose: 999 mls/hr Sodium Chloride (Normal Saline) 1,000 mls @ 500 mls/hr IV ASDIRECTED REPLACED BY [facility] Iopamidol (Isovue-370 (76%)) 75 ml IV ONETIME ONE Stop: 05/02/17 11:31 Last Admin: 05/02/17 11:39 Dose: 73 ml Ketorolac Tromethamine (Toradol) 30 mg IVPUSH ONETIME ONE Stop: 05/02/17 09:27 Last Admin: 05/02/17 09:48 Dose: 30 mg Ketorolac Tromethamine (Toradol) 30 mg IVPUSH Q6H PRN PRN Reason: Pain Stop: 05/07/17 20:05 Last Admin: 05/04/17 05:41 Dose: 30 mg Morphine Sulfate (Morphine) 4 mg IVPUSH ONETIME ONE Stop: 05/02/17 09:29 Last Admin: 05/02/17 09:48 Dose: 4 mg Morphine Sulfate (Morphine) 2 mg IVPUSH ONETIME ONE Stop: 05/02/17 10:50 Last Admin: 05/02/17 10:54 Dose: 2 mg Morphine Sulfate (Morphine) 4 mg IVPUSH ONETIME ONE Stop: 05/02/17 12:16 Last Admin: 05/02/17 12:30 Dose: 4 mg Ondansetron HCl (Zofran) 4 mg IVPUSH ONETIME ONE Stop: 05/02/17 09:29 Last Admin: 05/02/17 09:47 Dose: 4 mg Ranitidine HCl (Zantac) 150 mg PO BID REPLACED BY [facility] Last Admin: 05/03/17 10:02 Dose: 150 mg - Exam Quality Assessment: Urine Catheter General: Alert, Oriented, Cooperative, No Acute Distress HEENT: Pupils Equal, Pupils Reactive Neck: Supple Lungs: Clear to Auscultation, Normal Respiratory Effort Cardiovascular: Regular Rate, Regular Rhythm, No Murmurs GI/Abdominal Exam: Normal Bowel Sounds, Soft, No Distention, Tender Extremities: No Pedal Edema Psy/Mental Status: Alert, Normal Affect, Normal Mood - Problem List & Annotations (1) Abdominal pain SNOMED Code(s): 78731999 Code(s): R10.9 - UNSPECIFIED ABDOMINAL PAIN Status: Acute Current Visit: Yes Annotation/Comment:: Likely small bowel obstruction versus ileus. We'll repeat x-rays tomorrow. Dr. Gracia following. Continue NG placement, pain management. Received another bolus of normal saline this morning. NG output has slowed down significantly with more than 4 L out yesterday and now 300 out since 6 AM. Urine output was 300 mL for the last shift which would be more than 30 mL per hour. (2) HTN (hypertension) SNOMED Code(s): 62848657 Code(s): I10 - ESSENTIAL (PRIMARY) HYPERTENSION Status: Acute Current Visit: Yes Annotation/Comment:: Currently stable. Continue to hold blood pressure pills. (3) OAB (overactive bladder) SNOMED Code(s): 230836884 Code(s): N32.81 - OVERACTIVE BLADDER Status: Acute Current Visit: Yes Annotation/Comment:: Hold by mouth medications until symptoms have resolved. (4) DVT prophylaxis SNOMED Code(s): 263239107 Code(s): QEQ3675 - Status: Acute Current Visit: Yes Annotation/Comment :: SCDs, ambulation as able, AUDRA galvane. Hold off on lovenox for now. - Problem List Review Problem List Initiated/Reviewed/Updated: Yes - My Orders Last 24 Hours: My Active Orders 05/04/17 17:25 CULTURE-STOOL [MREF] Routine 05/05/17 09:00 Sodium Chloride 0.9% [Normal Saline] 1,000 ml IV ASDIRECTED 05/06/17 05:11 BASIC METABOLIC PANEL,BMP [CHEM] AM CBC WITH AUTO DIFF [HEME] AM 05/07/17 05:11 BASIC METABOLIC PANEL,BMP [CHEM] AM CBC WITH AUTO DIFF [HEME] AM
[2017-05-06] MEDS: Sodium Chloride 0.9% 1,000 ML IV SCH ×2 (00:25→08:32)
[2017-05-06] MEDS: fentaNYL 100 MCG/2 ML SDV IVPUSH PRN ×6 (00:42→21:27)
[2017-05-06] MEDS: Pantoprazole 40 MG Vial IVPUSH SCH (08:36)
--- NOTE | 2017-05-06 08:54 | PCM.PN ---
- General Info Date of Service: 05/06/17 Subjective Update: Mammary complaints of a abdominal discomfort, cramps. She had an enema yesterday and passed some stool. Still has an NG tube in place and she is nothing by mouth. - Review of Systems Pulmonary: Reports: No Symptoms Cardiovascular: Reports: No Symptoms - Patient Data Vitals - Most Recent: Last Vital Signs Temp 97.9 F 05/06/17 03:54 Pulse 77 05/06/17 03:54 Resp 18 05/06/17 03:54 BP 103/71 05/06/17 03:54 Pulse Ox 93 L 05/06/17 03:54 Weight - Most Recent: 70.76 kg I&O - Last 24 Hours: Intake & Output 05/05/17 05/06/17 05/06/17 22:59 06:59 14:59 Intake Total 1026 1010 300 Output Total 850 350 Balance 176 660 300 Lab Results Last 24 Hours: Laboratory Results - last 24 hr 05/06/17 05/06/17 Range/Units 06:15 06:15 WBC 8.9 (4.5-12.0) X10-3/uL RBC 3.73 (3.23-5.20) x10(6)uL Hgb 11.8 (11.5-15.5) g/dL Hct 36.3 (30.0-51.3) % MCV 97.2 H (80-96) fL MCH 31.6 (27.7-33.6) pg MCHC 32.6 (32.2-35.4) g/dL RDW 12.5 (11.5-15.5) % Plt Count 266 (125-369) X10(3)uL MPV 8.1 (7.4-10.4) fL Neut % (Auto) 65.4 (46-82) % Lymph % (Auto) 23.7 (13-37) % [place] % (Auto) 9.5 (4-12) % Eos % (Auto) 1 (1.0-5.0) % Baso % (Auto) 0 (0-2) % Neut # (Auto) 5.9 (1.6-8.3) # Lymph # (Auto) 2.1 (0.6-5.0) # [place] # (Auto) 0.8 (0.0-1.3) # Eos # (Auto) 0.1 (0.0-0.8) # Baso # (Auto) 0.0 (0.0-0.2) # Sodium 140 (135-145) mmol/L Potassium 3.5 (3.5-5.3) mmol/L Chloride 106 (100-110) mmol/L Carbon Dioxide 20 L (21-32) mmol/L BUN 17 (7-18) mg/dL Creatinine 0.7 (0.55-1.02) mg/dL Est Cr Clr Drug Dosing 70.44 mL/min Estimated GFR (MDRD) > 60 (>60) BUN/Creatinine Ratio 24.3 H (9-20) Glucose 61 L (80-116) mg/dL Calcium 7.8 L (8.6-10.2) mg/dL Med Orders - Current: Current Medications Acetaminophen (Tylenol) 650 mg RECTAL Q4H PRN PRN Reason: Mild pain/fever Acetaminophen (Tylenol) 650 mg PO Q4H PRN PRN Reason: Abdominal Pain Diatrizoate Meglum/Diatrizoate Sod (Gastrografin 37%) 30 ml PO . DIRECTED [facility] Last Admin: 05/02/17 11:39 Dose: 30 ml Fentanyl (Sublimaze) 100 mcg IVPUSH Q1H PRN PRN Reason: Abdominal Pain Last Admin: 05/06/17 08:32 Dose: 100 mcg Sodium Chloride (Normal Saline) 1,000 mls @ 125 mls/hr IV ASDIRECTED [facility] Last Admin: 05/06/17 08:32 Dose: 125 mls/hr Lorazepam (Ativan) 1 mg IVPUSH DAILY PRN PRN Reason: Anxiety Last Admin: 05/03/17 11:45 Dose: 1 mg Ondansetron HCl (Zofran Odt) 4 mg PO Q4H PRN PRN Reason: nausea, able to take PO Last Admin: 05/04/17 04:20 Dose: 4 mg Pantoprazole Sodium (Protonix Iv) 40 mg IVPUSH DAILY [facility] Last Admin: 05/06/17 08:36 Dose: 40 mg Sodium Chloride (Saline Flush) 10 ml FLUSH ASDIRECTED PRN PRN Reason: Keep Vein Open Last Admin: 05/04/17 21:13 Dose: 10 ml Temazepam (Restoril) 7.5 mg PO BEDTIME PRN PRN Reason: Sleep Discontinued Medications Bisacodyl (Dulcolax) 10 mg RECTAL ONETIME ONE Stop: 05/04/17 09:41 Last Admin: 05/04/17 10:23 Dose: 10 mg Famotidine (Pepcid) 20 mg PO BID [facility] Last Admin: 05/04/17 19:45 Dose: Not Given Fentanyl (Sublimaze) 50 mcg IVPUSH Q30M PRN PRN Reason: Abdominal Pain Last Admin: 05/02/17 18:51 Dose: 50 mcg Sodium Chloride (Normal Saline) 1,000 mls @ 999 mls/hr IV ASDIRECTED [facility] Last Admin: 05/02/17 09:45 Dose: 999 mls/hr Sodium Chloride (Normal Saline) 1,000 mls @ 100 mls/hr IV ASDIRECTED [facility] Stop: 05/03/17 17:16 Last Admin: 05/03/17 15:34 Dose: 100 mls/hr Sodium Chloride (Normal Saline) 1,000 mls @ 999 mls/hr IV ASDIRECTED [facility] Sodium Chloride (Normal Saline) 1,000 mls @ 999 mls/hr IV ASDIRECTED ONE Stop: 05/02/17 21:45 Last Admin: 05/02/17 20:50 Dose: 999 mls/hr Sodium Chloride (Normal Saline) 1,000 mls @ 999 mls/hr IV .BOLUS ONE Stop: 05/03/17 23:27 Last Admin: 05/03/17 22:47 Dose: 999 mls/hr Lactated Ringer's (Ringers, Lactated) 1,000 mls @ 999 mls/hr IV ASDIRECTED [facility] Last Admin: 05/04/17 11:23 Dose: 999 mls/hr Sodium Chloride (Normal Saline) 1,000 mls @ 999 mls/hr IV ASDIRECTED [facility] Stop: 05/05/17 14:31 Last Admin: 05/04/17 14:22 Dose: 999 mls/hr Sodium Chloride (Normal Saline) 1,000 mls @ 500 mls/hr IV ASDIRECTED [facility] Sodium Chloride (Normal Saline) 1,000 mls @ 500 mls/hr IV ASDIRECTED [facility] Last Admin: 05/05/17 09:25 Dose: 500 mls/hr Iopamidol (Isovue-370 (76%)) 75 ml IV ONETIME ONE Stop: 05/02/17 11:31 Last Admin: 05/02/17 11:39 Dose: 73 ml Ketorolac Tromethamine (Toradol) 30 mg IVPUSH ONETIME ONE Stop: 05/02/17 09:27 Last Admin: 05/02/17 09:48 Dose: 30 mg Ketorolac Tromethamine (Toradol) 30 mg IVPUSH Q6H PRN PRN Reason: Pain Stop: 05/07/17 20:05 Last Admin: 05/04/17 05:41 Dose: 30 mg Morphine Sulfate (Morphine) 4 mg IVPUSH ONETIME ONE Stop: 05/02/17 09:29 Last Admin: 05/02/17 09:48 Dose: 4 mg Morphine Sulfate (Morphine) 2 mg IVPUSH ONETIME ONE Stop: 05/02/17 10:50 Last Admin: 05/02/17 10:54 Dose: 2 mg Morphine Sulfate (Morphine) 4 mg IVPUSH ONETIME ONE Stop: 05/02/17 12:16 Last Admin: 05/02/17 12:30 Dose: 4 mg Ondansetron HCl (Zofran) 4 mg IVPUSH ONETIME ONE Stop: 05/02/17 09:29 Last Admin: 05/02/17 09:47 Dose: 4 mg Ranitidine HCl (Zantac) 150 mg PO BID [facility] Last Admin: 05/03/17 10:02 Dose: 150 mg - Exam Quality Assessment: No: Supplemental Oxygen General: Alert, Oriented HEENT: Pupils Equal Neck: Supple Lungs: Clear to Auscultation Cardiovascular: Regular Rate GI/Abdominal Exam: Distended, Rebound, Tender - Problem List & Annotations (1) Abdominal pain SNOMED Code(s): 74796244 Code(s): R10.9 - UNSPECIFIED ABDOMINAL PAIN Status: Acute Current Visit: Yes Qualifiers: Abdominal location: generalized Qualified Code(s): R10.84 - Generalized abdominal pain (2) HTN (hypertension) SNOMED Code(s): 37475757 Code(s): I10 - ESSENTIAL (PRIMARY) HYPERTENSION Status: Acute Current Visit: Yes Qualifiers: Hypertension type: essential hypertension Qualified Code(s): I10 - Essential (primary) hypertension Annotation/Comment:: Currently stable. Continue to hold blood pressure pills. (3) Bronchospasm SNOMED Code(s): 0908493 Code(s): J98.01 - ACUTE BRONCHOSPASM Status: Acute Current Visit: No - Problem List Review Problem List Initiated/Reviewed/Updated: Yes - Plan Plan:: Dr. Gracia is managing abdominal pain. I would like to sign off, and asked him to call me if they've any questions
[2017-05-06] MEDS ORDERED: ceFAZolin 1 GM in Sodium Chloride 0.9% 50 ML IV ONE (11:41)
[2017-05-06] MEDS ORDERED: ceFAZolin 1 GM Vial IV ONE (11:45)
--- NOTE | 2017-05-06 11:45 | PCM.SN ---
- Free Text/Narrative Note: No bowel movements still with tenderness and air fluid levels on kub to OR for ex lap. procedure and risks explained to the pt to include bleeding infection intestinal resection. she asks us to proceed.
[2017-05-06] MEDS: Sodium Chloride 0.9% 10 ML Syringe FLUSH PRN (11:58)
[2017-05-06] MEDS ORDERED: hydrOXYzine HCl 50 MG/ML SDV IM ONE (12:00)
[2017-05-06] MEDS ORDERED: Midazolam 1 MG/ML 2 ML SDV IV ONE (12:00)
[2017-05-06] MEDS ORDERED: Lactated Ringers 1,000 ML IV ONE (12:00)
[2017-05-06] MEDS ORDERED: Succinylcholine 200 MG/10 ML MDV IV ONE (12:00)
[2017-05-06] MEDS ORDERED: Ketorolac 30 MG/ML SDV IVPUSH ONE (12:00)
[2017-05-06] MEDS ORDERED: fentaNYL 100 MCG/2 ML SDV IV ONE (12:00)
[2017-05-06] MEDS ORDERED: Rocuronium 100 MG/10 ML MDV IV ONE (12:00)
[2017-05-06] MEDS ORDERED: Ondansetron 4 MG/2 ML SDV IVPUSH ONE (12:00)
[2017-05-06] MEDS ORDERED: Propofol 200 MG/20 ML SDV IV ONE (12:00)
[2017-05-06] MEDS ORDERED: Morphine 10 MG/ML Syringe IVPUSH ONE (12:00)
[2017-05-06] MEDS ORDERED: Sugammadex Sodium 200 MG/2 ML VIAL IV ONE (12:00)
--- NOTE | 2017-05-06 12:33 | CR ---
INDICATION: Small-bowel obstruction. ABDOMEN: Four views of the abdomen in supine and upright projections, 2017, were compared with 05/04/2017, again revealing dilated loops of small bowel with air-fluid levels, compatible with either paralytic ileus or mechanical obstruction in the distal small bowel. There is a relative paucity of gas in the area of the rectum and rectosigmoid. A nasogastric tube is again noted in place with its tip in the proximal gastric body. The secondary opening is in the area of the gastric fundus. It could be advanced approximately 10 cm for better positioning. No definite free air is seen. Minimal pleuroparenchymal changes are noted at the left costophrenic angle, compatible with fibrosis, as they were present on 07/05/2016. IMPRESSION: 1. Dilated loops of small bowel with air-fluid levels, compatible with an obstructive process, either mechanical at the distal small bowel or possibly due to paralytic ileus - less likely. 2. Nasogastric tube could be advanced approximately 10 cm for better positioning. MTDD
--- NOTE | 2017-05-06 12:59 | PCM.OPNOTE ---
- General Post-Op/Procedure Note Date of Surgery/Procedure: 05/06/17 Operative Procedure(s): ex lap with lysis of adhesion Findings: single adhesion with partial obstruction Pre Op Diagnosis: sbo Post-Op Diagnosis: Same Anesthesia Technique: General ET Tube Primary Surgeon: Thomas Gracia Anesthesia Provider: Sagrario Moreno Pathology: none Fluid Replacement, Intraop: 1,300 (250 colloid ) EBL in mLs: 1 Complications: None Condition: Good Free Text/Narrative:: Intake & Output 05/05/17 05/06/17 05/06/17 22:59 06:59 14:59 Intake Total 1026 1010 300 Output Total 850 350 Balance 176 660 300 see dictation
--- NOTE | 2017-05-06 13:29 | OR ---
DATE OF OPERATION: 05/06/2017 SURGEON: Thomas Gracia MD PROCEDURE PERFORMED: Exploratory laparotomy with lysis of adhesion. PREOPERATIVE DIAGNOSIS: Small bowel obstruction. POSTOPERATIVE DIAGNOSIS: Small bowel obstruction. INDICATIONS FOR PROCEDURE: This is a 61-year-old white female who has been admitted all week. She is being followed with evidence of a partial small bowel obstruction. She appeared to be doing well yesterday and improving; however, this morning, had an increase in her NG tube output and noted increased pain. A KUB that was obtained this morning continued to demonstrate air-fluid levels. She was offered and accepted exploratory laparotomy. DESCRIPTION OF PROCEDURE: After an excellent general anesthetic was administered, the patient was prepped and draped in the usual sterile manner. A midline incision was made from just below the xiphoid process to just below the umbilicus with a #10 scalpel blade, and the underlying subcu fat was divided using electrocautery. The midline fascia was exposed. The fascia was divided, and the abdominal cavity was entered. Encountered a significant amount of abdominal ascites, approximately 3800 of straw-colored fluid. The small intestine was mobilized and was noted to have fluid in contents all the way down to the cecum. However, approximately 20 cm proximal to the ileocecal valve, there was one single band, which appeared to have entrapped the intestine and while it was not a complete obstruction, it was consistent with a partial obstruction. This band was divided. Fluid was noted and air was noted to traverse nicely across this area, which appeared to be normal caliber for small intestine, but smaller than the surrounding intestine. Intraabdominal contents were milked back. The stomach had an adhesion from her percutaneous gastrostomy tube, which was taken down. This area was then imbricated on the stomach with a running 3-0 Vicryl to tuck the stomach and to prevent leakage, even though, there was no evidence of any enterotomy. After milking of the small intestine contents back, the intestine was returned to normal anatomic position. The area was irrigated. The midline fascia was closed with a running #2 Prolene. [place] were used to close the skin. Needle, sponge, and instrument counts were reported as correct. The patient was taken to the recovery room in a good condition. /[id number] /MODL
[2017-05-06] MEDS ORDERED: Morphine 2 MG/ML Syringe IVPUSH PRN (13:38)
[2017-05-06] MEDS: Lactated Ringers 1,000 ML IV SCH ×2 (16:41→23:32)
[2017-05-07] MEDS: fentaNYL 100 MCG/2 ML SDV IVPUSH PRN (04:57)
--- NOTE | 2017-05-07 06:11 | PCM.SURGPN ---
- General Info Date of Service: 05/07/17 POD#: 1 Functional Status: Reports: Pain Controlled, Ambulating, Urinating - Review of Systems Pulmonary: Reports: No Symptoms Cardiovascular: Reports: No Symptoms Gastrointestinal: Reports: Abdominal Pain. Denies: Constipation Genitourinary: Reports: No Symptoms - Patient Data Vitals - Most Recent: Last Vital Signs Temp 36.8 C 05/07/17 04:00 Pulse 93 05/07/17 04:00 Resp 18 05/07/17 04:00 BP 111/69 05/07/17 04:00 Pulse Ox 96 05/07/17 04:00 Weight - Most Recent: 70.76 kg I&O - Last 24 Hours: Intake & Output 05/06/17 05/06/17 05/07/17 14:59 22:59 06:59 Intake Total 1600 1163 Output Total 250 250 Balance 1350 913 Lab Results Last 24 Hrs: Laboratory Results - last 24 hr 05/06/17 05/06/17 Range/Units 06:15 06:15 WBC 8.9 (4.5-12.0) X10-3/uL RBC 3.73 (3.23-5.20) x10(6)uL Hgb 11.8 (11.5-15.5) g/dL Hct 36.3 (30.0-51.3) % MCV 97.2 H (80-96) fL MCH 31.6 (27.7-33.6) pg MCHC 32.6 (32.2-35.4) g/dL RDW 12.5 (11.5-15.5) % Plt Count 266 (125-369) X10(3)uL MPV 8.1 (7.4-10.4) fL Neut % (Auto) 65.4 (46-82) % Lymph % (Auto) 23.7 (13-37) % [place] % (Auto) 9.5 (4-12) % Eos % (Auto) 1 (1.0-5.0) % Baso % (Auto) 0 (0-2) % Neut # (Auto) 5.9 (1.6-8.3) # Lymph # (Auto) 2.1 (0.6-5.0) # [place] # (Auto) 0.8 (0.0-1.3) # Eos # (Auto) 0.1 (0.0-0.8) # Baso # (Auto) 0.0 (0.0-0.2) # Sodium 140 (135-145) mmol/L Potassium 3.5 (3.5-5.3) mmol/L Chloride 106 (100-110) mmol/L Carbon Dioxide 20 L (21-32) mmol/L BUN 17 (7-18) mg/dL Creatinine 0.7 (0.55-1.02) mg/dL Est Cr Clr Drug Dosing 70.44 mL/min Estimated GFR (MDRD) > 60 (>60) BUN/Creatinine Ratio 24.3 H (9-20) Glucose 61 L (80-116) mg/dL Calcium 7.8 L (8.6-10.2) mg/dL Med Orders - Current: Current Medications Fentanyl (Sublimaze) 100 mcg IVPUSH Q1H PRN PRN Reason: Abdominal Pain Last Admin: 05/07/17 04:57 Dose: 100 mcg Lactated Ringer's (Ringers, Lactated) 1,000 mls @ 150 mls/hr IV ASDIRECTED [facility] Last Admin: 05/06/17 23:32 Dose: 150 mls/hr Lorazepam (Ativan) 1 mg IVPUSH DAILY PRN PRN Reason: Anxiety Last Admin: 05/03/17 11:45 Dose: 1 mg Ondansetron HCl (Zofran Odt) 4 mg PO Q4H PRN PRN Reason: nausea, able to take PO Last Admin: 05/04/17 04:20 Dose: 4 mg Pantoprazole Sodium (Protonix Iv) 40 mg IVPUSH DAILY [facility] Last Admin: 05/06/17 08:36 Dose: 40 mg Discontinued Medications Acetaminophen (Tylenol) 650 mg RECTAL Q4H PRN PRN Reason: Mild pain/fever Acetaminophen (Tylenol) 650 mg PO Q4H PRN PRN Reason: Abdominal Pain Bisacodyl (Dulcolax) 10 mg RECTAL ONETIME ONE Stop: 05/04/17 09:41 Last Admin: 05/04/17 10:23 Dose: 10 mg Cefazolin Sodium (Ancef) 1 gm IV ONETIME ONE Stop: 05/06/17 11:46 Last Admin: 05/06/17 11:51 Dose: 1 gm Diatrizoate Meglum/Diatrizoate Sod (Gastrografin 37%) 30 ml PO . DIRECTED [facility] Last Admin: 05/02/17 11:39 Dose: 30 ml Famotidine (Pepcid) 20 mg PO BID [facility] Last Admin: 05/04/17 19:45 Dose: Not Given Fentanyl (Sublimaze) 50 mcg IVPUSH Q30M PRN PRN Reason: Abdominal Pain Last Admin: 05/02/17 18:51 Dose: 50 mcg Sodium Chloride (Normal Saline) 1,000 mls @ 999 mls/hr IV ASDIRECTED [facility] Last Admin: 05/02/17 09:45 Dose: 999 mls/hr Sodium Chloride (Normal Saline) 1,000 mls @ 100 mls/hr IV ASDIRECTED [facility] Stop: 05/03/17 17:16 Last Admin: 05/03/17 15:34 Dose: 100 mls/hr Sodium Chloride (Normal Saline) 1,000 mls @ 999 mls/hr IV ASDIRECTED [facility] Sodium Chloride (Normal Saline) 1,000 mls @ 999 mls/hr IV ASDIRECTED ONE Stop: 05/02/17 21:45 Last Admin: 05/02/17 20:50 Dose: 999 mls/hr Sodium Chloride (Normal Saline) 1,000 mls @ 999 mls/hr IV .BOLUS ONE Stop: 05/03/17 23:27 Last Admin: 05/03/17 22:47 Dose: 999 mls/hr Sodium Chloride (Normal Saline) 1,000 mls @ 125 mls/hr IV ASDIRECTED [facility] Last Admin: 05/06/17 08:32 Dose: 125 mls/hr Lactated Ringer's (Ringers, Lactated) 1,000 mls @ 999 mls/hr IV ASDIRECTED [facility] Last Admin: 05/04/17 11:23 Dose: 999 mls/hr Sodium Chloride (Normal Saline) 1,000 mls @ 999 mls/hr IV ASDIRECTED [facility] Stop: 05/05/17 14:31 Last Admin: 05/04/17 14:22 Dose: 999 mls/hr Sodium Chloride (Normal Saline) 1,000 mls @ 500 mls/hr IV ASDIRECTED [facility] Sodium Chloride (Normal Saline) 1,000 mls @ 500 mls/hr IV ASDIRECTED [facility] Last Admin: 05/05/17 09:25 Dose: 500 mls/hr Iopamidol (Isovue-370 (76%)) 75 ml IV ONETIME ONE Stop: 05/02/17 11:31 Last Admin: 05/02/17 11:39 Dose: 73 ml Ketorolac Tromethamine (Toradol) 30 mg IVPUSH ONETIME ONE Stop: 05/02/17 09:27 Last Admin: 05/02/17 09:48 Dose: 30 mg Ketorolac Tromethamine (Toradol) 30 mg IVPUSH Q6H PRN PRN Reason: Pain Stop: 05/07/17 20:05 Last Admin: 05/04/17 05:41 Dose: 30 mg Morphine Sulfate (Morphine) 4 mg IVPUSH ONETIME ONE Stop: 05/02/17 09:29 Last Admin: 05/02/17 09:48 Dose: 4 mg Morphine Sulfate (Morphine) 2 mg IVPUSH ONETIME ONE Stop: 05/02/17 10:50 Last Admin: 05/02/17 10:54 Dose: 2 mg Morphine Sulfate (Morphine) 4 mg IVPUSH ONETIME ONE Stop: 05/02/17 12:16 Last Admin: 05/02/17 12:30 Dose: 4 mg Morphine Sulfate (Morphine) 2 mg IVPUSH Q3M PRN PRN Reason: Abdominal Pain Ondansetron HCl (Zofran) 4 mg IVPUSH ONETIME ONE Stop: 05/02/17 09:29 Last Admin: 05/02/17 09:47 Dose: 4 mg Ranitidine HCl (Zantac) 150 mg PO BID [facility] Last Admin: 05/03/17 10:02 Dose: 150 mg Sodium Chloride (Saline Flush) 10 ml FLUSH ASDIRECTED PRN PRN Reason: Keep Vein Open Last Admin: 05/06/17 11:58 Dose: 10 ml Temazepam (Restoril) 7.5 mg PO BEDTIME PRN PRN Reason: Sleep - Exam Wound/Incisions: Dressing Dry and Intact General: Alert, Cooperative Lungs: Normal Respiratory Effort, Other (some coughing on sitting up ) Cardiovascular: Regular Rate, Regular Rhythm GI/Abdominal Exam: Soft, Tender (incisional tendersness ). No: Rigid, Rebound - Problem List & Annotations (1) Small bowel obstruction due to adhesions SNOMED Code(s): 920836396 Code(s): K56.50 - INTESTNL ADHESIONS, UNSP TO PARTIAL VERSUS COMPLETE OBST Status: Acute Current Visit: Yes Annotation/Comment:: single band partial obstruction - Problem List Review Problem List Initiated/Reviewed/Updated: Yes - My Orders Last 24 Hours: Active Orders 24 hr Category Date Time Status Communication Order [RC] 08,16,00 Care 05/06/17 14:30 Active Nasogastric Tube Management [Gastrointestinal Tube Mgmt Care 05/06/17 14:25 Active ] [RC] QSHIFT Lactated Ringers [Ringers, Lactated] 1,000 ml Med 05/06/17 13:00 Active IV ASDIRECTED Medication Orders Fentanyl (Sublimaze) 100 mcg IVPUSH Q1H PRN PRN Reason: Abdominal Pain Last Admin: 05/07/17 04:57 Dose: 100 mcg Admin: 05/06/17 21:27 Dose: 100 mcg Admin: 05/06/17 15:47 Dose: 100 mcg Admin: 05/06/17 11:16 Dose: 100 mcg Admin: 05/06/17 08:32 Dose: 100 mcg Admin: 05/06/17 03:29 Dose: 100 mcg Admin: 05/06/17 00:42 Dose: 100 mcg Admin: 05/05/17 21:02 Dose: 100 mcg Admin: 05/05/17 18:44 Dose: 100 mcg Admin: 05/05/17 15:00 Dose: 100 mcg Admin: 05/05/17 11:31 Dose: 100 mcg Admin: 05/05/17 08:45 Dose: 100 mcg Admin: 05/05/17 06:02 Dose: 100 mcg Admin: 05/05/17 04:16 Dose: 100 mcg Admin: 05/05/17 00:11 Dose: 100 mcg Admin: 05/04/17 21:11 Dose: 100 mcg Admin: 05/04/17 18:21 Dose: 100 mcg Admin: 05/04/17 13:29 Dose: 100 mcg Admin: 05/04/17 02:58 Dose: 100 mcg Admin: 05/03/17 09:44 Dose: 100 mcg Admin: 05/03/17 08:16 Dose: 100 mcg Admin: 05/03/17 06:20 Dose: 100 mcg Admin: 05/03/17 04:21 Dose: 100 mcg Admin: 05/03/17 01:13 Dose: 100 mcg Admin: 05/02/17 23:29 Dose: 100 mcg Lactated Ringer's (Ringers, Lactated) 1,000 mls @ 150 mls/hr IV ASDIRECTED [facility] Last Admin: 05/06/17 23:32 Dose: 150 mls/hr Infusion: 05/06/17 23:22 Dose: 150 mls/hr Admin: 05/06/17 16:41 Dose: 150 mls/hr Lorazepam (Ativan) 1 mg IVPUSH DAILY PRN PRN Reason: Anxiety Last Admin: 05/03/17 11:45 Dose: 1 mg Ondansetron HCl (Zofran Odt) 4 mg PO Q4H PRN PRN Reason: nausea, able to take PO Last Admin: 05/04/17 04:20 Dose: 4 mg Admin: 05/03/17 04:46 Dose: 4 mg Pantoprazole Sodium (Protonix Iv) 40 mg IVPUSH DAILY [facility] Last Admin: 05/06/17 08:36 Dose: 40 mg Admin: 05/05/17 08:48 Dose: 40 mg Admin: 05/04/17 09:47 Dose: 40 mg Admin: 05/03/17 09:07 Dose: 40 mg - Assessment Assessment (Free Text/Narrative):: post op day 1 - Plan Plan (Free Text/Narrative):: unremarkable post op exam continue hydration continue lewis and ngt
[2017-05-07] MEDS: Lactated Ringers 1,000 ML IV SCH ×3 (06:25→20:29)
[2017-05-07] MEDS: HYDROmorphone 2 MG/ML SDV IVPUSH PRN ×4 (08:46→22:26)
[2017-05-07] MEDS: Pantoprazole 40 MG Vial IVPUSH SCH (08:52)
[2017-05-08] MEDS: HYDROmorphone 2 MG/ML SDV IVPUSH PRN ×5 (02:55→21:12)
[2017-05-08] MEDS: Lactated Ringers 1,000 ML IV SCH ×3 (04:35→21:29)
[2017-05-08] MEDS: Pantoprazole 40 MG Vial IVPUSH SCH (09:02)
--- NOTE | 2017-05-08 10:10 | PCM.SURGPN ---
- General Info Date of Service: 05/08/17 POD#: 2 Functional Status: Reports: Pain Controlled, Ambulating, Urinating, Incentive Spirometry. Denies: New Symptoms - Review of Systems Pulmonary: Reports: No Symptoms Cardiovascular: Reports: No Symptoms Gastrointestinal: Denies: Flatus - Patient Data Vitals - Most Recent: Last Vital Signs Temp 37.1 C 05/08/17 04:00 Pulse 96 05/08/17 04:00 Resp 18 05/08/17 04:00 BP 147/80 H 05/08/17 04:00 Pulse Ox 92 L 05/08/17 04:00 Weight - Most Recent: 70.76 kg I&O - Last 24 Hours: Intake & Output 05/07/17 05/08/17 05/08/17 22:59 06:59 14:59 Intake Total 969 988 Output Total 350 300 Balance 619 688 [place] Results Last 24 Hrs: Microbiology 05/04/17 17:25 Specimen Source - Preliminary Stool / Feces Stool Culture - Preliminary Med Orders - Current: Current Medications Hydromorphone HCl (Dilaudid) 1 mg IVPUSH Q4H PRN PRN Reason: Pain Last Admin: 05/08/17 08:55 Dose: 1 mg Lactated Ringer's (Ringers, Lactated) 1,000 mls @ 125 mls/hr IV ASDIRECTED [facility] Last Admin: 05/08/17 04:35 Dose: 125 mls/hr Lorazepam (Ativan) 1 mg IVPUSH DAILY PRN PRN Reason: Anxiety Last Admin: 05/03/17 11:45 Dose: 1 mg Ondansetron HCl (Zofran Odt) 4 mg PO Q4H PRN PRN Reason: nausea, able to take PO Last Admin: 05/04/17 04:20 Dose: 4 mg Pantoprazole Sodium (Protonix Iv) 40 mg IVPUSH DAILY [facility] Last Admin: 05/08/17 09:02 Dose: 40 mg Discontinued Medications Acetaminophen (Tylenol) 650 mg RECTAL Q4H PRN PRN Reason: Mild pain/fever Acetaminophen (Tylenol) 650 mg PO Q4H PRN PRN Reason: Abdominal Pain Bisacodyl (Dulcolax) 10 mg RECTAL ONETIME ONE Stop: 05/04/17 09:41 Last Admin: 05/04/17 10:23 Dose: 10 mg Cefazolin Sodium (Ancef) 1 gm IV ONETIME ONE Stop: 05/06/17 11:46 Last Admin: 05/06/17 11:51 Dose: 1 gm Diatrizoate Meglum/Diatrizoate Sod (Gastrografin 37%) 30 ml PO . DIRECTED [facility] Last Admin: 05/02/17 11:39 Dose: 30 ml Famotidine (Pepcid) 20 mg PO BID [facility] Last Admin: 05/04/17 19:45 Dose: Not Given Fentanyl (Sublimaze) 50 mcg IVPUSH Q30M PRN PRN Reason: Abdominal Pain Last Admin: 05/02/17 18:51 Dose: 50 mcg Fentanyl (Sublimaze) 100 mcg IVPUSH Q1H PRN PRN Reason: Abdominal Pain Last Admin: 05/07/17 04:57 Dose: 100 mcg Sodium Chloride (Normal Saline) 1,000 mls @ 999 mls/hr IV ASDIRECTED [facility] Last Admin: 05/02/17 09:45 Dose: 999 mls/hr Sodium Chloride (Normal Saline) 1,000 mls @ 100 mls/hr IV ASDIRECTED [facility] Stop: 05/03/17 17:16 Last Admin: 05/03/17 15:34 Dose: 100 mls/hr Sodium Chloride (Normal Saline) 1,000 mls @ 999 mls/hr IV ASDIRECTED [facility] Sodium Chloride (Normal Saline) 1,000 mls @ 999 mls/hr IV ASDIRECTED ONE Stop: 05/02/17 21:45 Last Admin: 05/02/17 20:50 Dose: 999 mls/hr Sodium Chloride (Normal Saline) 1,000 mls @ 999 mls/hr IV .BOLUS ONE Stop: 05/03/17 23:27 Last Admin: 05/03/17 22:47 Dose: 999 mls/hr Sodium Chloride (Normal Saline) 1,000 mls @ 125 mls/hr IV ASDIRECTED [facility] Last Admin: 05/06/17 08:32 Dose: 125 mls/hr Lactated Ringer's (Ringers, Lactated) 1,000 mls @ 999 mls/hr IV ASDIRECTED [facility] Last Admin: 05/04/17 11:23 Dose: 999 mls/hr Sodium Chloride (Normal Saline) 1,000 mls @ 999 mls/hr IV ASDIRECTED [facility] Stop: 05/05/17 14:31 Last Admin: 05/04/17 14:22 Dose: 999 mls/hr Sodium Chloride (Normal Saline) 1,000 mls @ 500 mls/hr IV ASDIRECTED [facility] Sodium Chloride (Normal Saline) 1,000 mls @ 500 mls/hr IV ASDIRECTED [facility] Last Admin: 05/05/17 09:25 Dose: 500 mls/hr Iopamidol (Isovue-370 (76%)) 75 ml IV ONETIME ONE Stop: 05/02/17 11:31 Last Admin: 05/02/17 11:39 Dose: 73 ml Ketorolac Tromethamine (Toradol) 30 mg IVPUSH ONETIME ONE Stop: 05/02/17 09:27 Last Admin: 05/02/17 09:48 Dose: 30 mg Ketorolac Tromethamine (Toradol) 30 mg IVPUSH Q6H PRN PRN Reason: Pain Stop: 05/07/17 20:05 Last Admin: 05/04/17 05:41 Dose: 30 mg Morphine Sulfate (Morphine) 4 mg IVPUSH ONETIME ONE Stop: 05/02/17 09:29 Last Admin: 05/02/17 09:48 Dose: 4 mg Morphine Sulfate (Morphine) 2 mg IVPUSH ONETIME ONE Stop: 05/02/17 10:50 Last Admin: 05/02/17 10:54 Dose: 2 mg Morphine Sulfate (Morphine) 4 mg IVPUSH ONETIME ONE Stop: 05/02/17 12:16 Last Admin: 05/02/17 12:30 Dose: 4 mg Morphine Sulfate (Morphine) 2 mg IVPUSH Q3M PRN PRN Reason: Abdominal Pain Ondansetron HCl (Zofran) 4 mg IVPUSH ONETIME ONE Stop: 05/02/17 09:29 Last Admin: 05/02/17 09:47 Dose: 4 mg Ranitidine HCl (Zantac) 150 mg PO BID [facility] Last Admin: 05/03/17 10:02 Dose: 150 mg Sodium Chloride (Saline Flush) 10 ml FLUSH ASDIRECTED PRN PRN Reason: Keep Vein Open Last Admin: 05/06/17 11:58 Dose: 10 ml Temazepam (Restoril) 7.5 mg PO BEDTIME PRN PRN Reason: Sleep - Exam Wound/Incisions: Dressing Dry and Intact General: Alert, Cooperative, No Acute Distress Lungs: Clear to Auscultation, Normal Respiratory Effort Cardiovascular: Regular Rate, Regular Rhythm GI/Abdominal Exam: Soft, Non-Tender, No Distention, Abnormal Bowel Sounds ( hypoactive bowel sounds ) - Problem List & Annotations (1) Small bowel obstruction due to adhesions SNOMED Code(s): 458462838 Code(s): K56.50 - INTESTNL ADHESIONS, UNSP TO PARTIAL VERSUS COMPLETE OBST Status: Acute Current Visit: Yes Annotation/Comment:: single band partial obstruction - Problem List Review Problem List Initiated/Reviewed/Updated: Yes - My Orders Last 24 Hours: Active Orders 24 hr Category Date Time Status DC Tang Catheter [Urinary Catheter Removal] [RC] Per Care 05/08/17 10:07 Ordered Unit Routine Medication Orders Hydromorphone HCl (Dilaudid) 1 mg IVPUSH Q4H PRN PRN Reason: Pain Last Admin: 05/08/17 08:55 Dose: 1 mg Admin: 05/08/17 02:55 Dose: 1 mg Admin: 05/07/17 22:26 Dose: 1 mg Admin: 05/07/17 18:21 Dose: 1 mg Admin: 05/07/17 13:05 Dose: 1 mg Admin: 05/07/17 08:46 Dose: 1 mg Lactated Ringer's (Ringers, Lactated) 1,000 mls @ 125 mls/hr IV ASDIRECTED [facility] Last Admin: 05/08/17 04:35 Dose: 125 mls/hr Infusion: 05/08/17 04:29 Dose: 125 mls/hr Admin: 05/07/17 20:29 Dose: 125 mls/hr Infusion: 05/07/17 20:15 Dose: 125 mls/hr Infusion: 05/07/17 17:10 Dose: 125 mls/hr Admin: 05/07/17 13:04 Dose: 150 mls/hr Infusion: 05/07/17 13:04 Dose: 150 mls/hr Admin: 05/07/17 06:25 Dose: 150 mls/hr Infusion: 05/07/17 06:13 Dose: 150 mls/hr Admin: 05/06/17 23:32 Dose: 150 mls/hr Infusion: 05/06/17 23:22 Dose: 150 mls/hr Admin: 05/06/17 16:41 Dose: 150 mls/hr Lorazepam (Ativan) 1 mg IVPUSH DAILY PRN PRN Reason: Anxiety Last Admin: 05/03/17 11:45 Dose: 1 mg Ondansetron HCl (Zofran Odt) 4 mg PO Q4H PRN PRN Reason: nausea, able to take PO Last Admin: 05/04/17 04:20 Dose: 4 mg Admin: 05/03/17 04:46 Dose: 4 mg Pantoprazole Sodium (Protonix Iv) 40 mg IVPUSH DAILY [facility] Last Admin: 05/08/17 09:02 Dose: 40 mg Admin: 05/07/17 08:52 Dose: 40 mg Admin: 05/06/17 08:36 Dose: 40 mg Admin: 05/05/17 08:48 Dose: 40 mg Admin: 05/04/17 09:47 Dose: 40 mg Admin: 05/03/17 09:07 Dose: 40 mg - Assessment Assessment (Free Text/Narrative):: POD#2 unremarkable exam - Plan Plan (Free Text/Narrative):: d/c joshua will continue ngt
[2017-05-09] MEDS: HYDROmorphone 2 MG/ML SDV IVPUSH PRN ×5 (01:46→23:39)
[2017-05-09] MEDS: Lactated Ringers 1,000 ML IV SCH (05:42)
--- NOTE | 2017-05-09 07:44 | PCM.SURGPN ---
- General Info Date of Service: 05/09/17 POD#: 3 Functional Status: Reports: Pain Controlled, Ambulating, Urinating, Incentive Spirometry - Review of Systems Gastrointestinal: Reports: Flatus, Other (NGT output is thinning and becoming clear ) - Patient Data Vitals - Most Recent: Last Vital Signs Temp 36.8 C 05/09/17 04:00 Pulse 83 05/09/17 04:00 Resp 18 05/09/17 04:00 BP 142/81 H 05/09/17 04:00 Pulse Ox 92 L 05/09/17 04:00 Weight - Most Recent: 70.76 kg I&O - Last 24 Hours: Intake & Output 05/08/17 05/09/17 05/09/17 22:59 06:59 14:59 Intake Total 1049 963 Output Total 450 700 Balance 599 263 [place] Results Last 24 Hrs: Microbiology 05/04/17 17:25 Specimen Source - Final Stool / Feces Stool Culture - Final Specimen Comment ([place]) - Final Med Orders - Current: Current Medications Hydromorphone HCl (Dilaudid) 1 mg IVPUSH Q4H PRN PRN Reason: Pain Last Admin: 05/09/17 06:49 Dose: 1 mg Potassium Chloride/Dextrose/Sod Cl (D5 1/2 Ns W/ 20 Meq/L Kcl) 1,000 mls @ 125 mls/hr IV ASDIRECTED [facility] Lorazepam (Ativan) 1 mg IVPUSH DAILY PRN PRN Reason: Anxiety Last Admin: 05/03/17 11:45 Dose: 1 mg Ondansetron HCl (Zofran Odt) 4 mg PO Q4H PRN PRN Reason: nausea, able to take PO Last Admin: 05/04/17 04:20 Dose: 4 mg Pantoprazole Sodium (Protonix Iv) 40 mg IVPUSH DAILY [facility] Last Admin: 05/08/17 09:02 Dose: 40 mg Discontinued Medications Acetaminophen (Tylenol) 650 mg RECTAL Q4H PRN PRN Reason: Mild pain/fever Acetaminophen (Tylenol) 650 mg PO Q4H PRN PRN Reason: Abdominal Pain Bisacodyl (Dulcolax) 10 mg RECTAL ONETIME ONE Stop: 05/04/17 09:41 Last Admin: 05/04/17 10:23 Dose: 10 mg Cefazolin Sodium (Ancef) 1 gm IV ONETIME ONE Stop: 05/06/17 11:46 Last Admin: 05/06/17 11:51 Dose: 1 gm Diatrizoate Meglum/Diatrizoate Sod (Gastrografin 37%) 30 ml PO . DIRECTED [facility] Last Admin: 05/02/17 11:39 Dose: 30 ml Famotidine (Pepcid) 20 mg PO BID [facility] Last Admin: 05/04/17 19:45 Dose: Not Given Fentanyl (Sublimaze) 50 mcg IVPUSH Q30M PRN PRN Reason: Abdominal Pain Last Admin: 05/02/17 18:51 Dose: 50 mcg Fentanyl (Sublimaze) 100 mcg IVPUSH Q1H PRN PRN Reason: Abdominal Pain Last Admin: 05/07/17 04:57 Dose: 100 mcg Fentanyl (Sublimaze) 100 mcg IV .STK-MED ONE Stop: 05/06/17 12:01 Hydroxyzine HCl (Vistaril) 50 mg IM .STK-MED ONE Stop: 05/06/17 12:01 Sodium Chloride (Normal Saline) 1,000 mls @ 999 mls/hr IV ASDIRECTED [facility] Last Admin: 05/02/17 09:45 Dose: 999 mls/hr Sodium Chloride (Normal Saline) 1,000 mls @ 100 mls/hr IV ASDIRECTED [facility] Stop: 05/03/17 17:16 Last Admin: 05/03/17 15:34 Dose: 100 mls/hr Sodium Chloride (Normal Saline) 1,000 mls @ 999 mls/hr IV ASDIRECTED [facility] Sodium Chloride (Normal Saline) 1,000 mls @ 999 mls/hr IV ASDIRECTED ONE Stop: 05/02/17 21:45 Last Admin: 05/02/17 20:50 Dose: 999 mls/hr Sodium Chloride (Normal Saline) 1,000 mls @ 999 mls/hr IV .BOLUS ONE Stop: 05/03/17 23:27 Last Admin: 05/03/17 22:47 Dose: 999 mls/hr Sodium Chloride (Normal Saline) 1,000 mls @ 125 mls/hr IV ASDIRECTED [facility] Last Admin: 05/06/17 08:32 Dose: 125 mls/hr Lactated Ringer's (Ringers, Lactated) 1,000 mls @ 999 mls/hr IV ASDIRECTED [facility] Last Admin: 05/04/17 11:23 Dose: 999 mls/hr Sodium Chloride (Normal Saline) 1,000 mls @ 999 mls/hr IV ASDIRECTED [facility] Stop: 05/05/17 14:31 Last Admin: 05/04/17 14:22 Dose: 999 mls/hr Sodium Chloride (Normal Saline) 1,000 mls @ 500 mls/hr IV ASDIRECTED [facility] Sodium Chloride (Normal Saline) 1,000 mls @ 500 mls/hr IV ASDIRECTED [facility] Last Admin: 05/05/17 09:25 Dose: 500 mls/hr Lactated Ringer's (Ringers, Lactated) 1,000 mls @ 125 mls/hr IV ASDIRECTED [facility] Last Admin: 05/09/17 05:42 Dose: 125 mls/hr Lactated Ringer's (Ringers, Lactated) 1,000 mls @ as directed IV .STK-MED ONE Stop: 05/06/17 12:01 Iopamidol (Isovue-370 (76%)) 75 ml IV ONETIME ONE Stop: 05/02/17 11:31 Last Admin: 05/02/17 11:39 Dose: 73 ml Ketorolac Tromethamine (Toradol) 30 mg IVPUSH ONETIME ONE Stop: 05/02/17 09:27 Last Admin: 05/02/17 09:48 Dose: 30 mg Ketorolac Tromethamine (Toradol) 30 mg IVPUSH Q6H PRN PRN Reason: Pain Stop: 05/07/17 20:05 Last Admin: 05/04/17 05:41 Dose: 30 mg Ketorolac Tromethamine (Toradol) 30 mg IVPUSH .STK-MED ONE Stop: 05/06/17 12:01 Midazolam HCl (Versed 1 Mg/Ml) 2 mg IV .STK-MED ONE Stop: 05/06/17 12:01 Morphine Sulfate (Morphine) 4 mg IVPUSH ONETIME ONE Stop: 05/02/17 09:29 Last Admin: 05/02/17 09:48 Dose: 4 mg Morphine Sulfate (Morphine) 2 mg IVPUSH ONETIME ONE Stop: 05/02/17 10:50 Last Admin: 05/02/17 10:54 Dose: 2 mg Morphine Sulfate (Morphine) 4 mg IVPUSH ONETIME ONE Stop: 05/02/17 12:16 Last Admin: 05/02/17 12:30 Dose: 4 mg Morphine Sulfate (Morphine) 2 mg IVPUSH Q3M PRN PRN Reason: Abdominal Pain Morphine Sulfate (Morphine) 10 mg IVPUSH .STK-MED ONE Stop: 05/06/17 12:01 Ondansetron HCl (Zofran) 4 mg IVPUSH ONETIME ONE Stop: 05/02/17 09:29 Last Admin: 05/02/17 09:47 Dose: 4 mg Ondansetron HCl (Zofran) 4 mg IVPUSH .STK-MED ONE Stop: 05/06/17 12:01 Propofol (Diprivan 20 Ml) 180 mg IV .STK-MED ONE Stop: 05/06/17 12:01 Ranitidine HCl (Zantac) 150 mg PO BID [facility] Last Admin: 05/03/17 10:02 Dose: 150 mg Rocuronium [place] (Zemuron) 35 mg IV .STK-MED ONE Stop: 05/06/17 12:01 Sodium Chloride (Saline Flush) 10 ml FLUSH ASDIRECTED PRN PRN Reason: Keep Vein Open Last Admin: 05/06/17 11:58 Dose: 10 ml Succinylcholine Chloride (Quelicin) 100 mg IV .STK-MED ONE Stop: 05/06/17 12:01 Temazepam (Restoril) 7.5 mg PO BEDTIME PRN PRN Reason: Sleep - Exam Wound/Incisions: Healing Well, No Drainage. No: Erythema General: Alert, Cooperative, No Acute Distress Lungs: Clear to Auscultation, Normal Respiratory Effort Cardiovascular: Regular Rate, Regular Rhythm GI/Abdominal Exam: Soft, Non-Tender, Abnormal Bowel Sounds (hypoactive ) Skin: Warm, Dry, Intact - Problem List & Annotations (1) Small bowel obstruction due to adhesions SNOMED Code(s): 877417953 Code(s): K56.50 - INTESTNL ADHESIONS, UNSP TO PARTIAL VERSUS COMPLETE OBST Status: Acute Current Visit: Yes Annotation/Comment:: single band partial obstruction - Problem List Review Problem List Initiated/Reviewed/Updated: Yes - My Orders Last 24 Hours: Active Orders 24 hr Category Date Time Status May Shower [RC] ASDIRECTED Care 05/08/17 10:10 Active BASIC METABOLIC PANEL,BMP [CHEM] Routine Lab 05/09/17 07:41 Ordered Dextrose 5%-1/2 Normal Saline with KCl 20 mEq @ 125 mL/ Med 05/09/17 07:45 Ordered Hr (1000 mL) D5 1/2 NS w/ 20 mEq/L KCl 1,000 ml IV ASDIRECTED Medication Orders Hydromorphone HCl (Dilaudid) 1 mg IVPUSH Q4H PRN PRN Reason: Pain Last Admin: 05/09/17 06:49 Dose: 1 mg Admin: 05/09/17 01:46 Dose: 1 mg Admin: 05/08/17 21:12 Dose: 1 mg Admin: 05/08/17 17:19 Dose: 1 mg Admin: 05/08/17 13:27 Dose: 1 mg Admin: 05/08/17 08:55 Dose: 1 mg Admin: 05/08/17 02:55 Dose: 1 mg Admin: 05/07/17 22:26 Dose: 1 mg Admin: 05/07/17 18:21 Dose: 1 mg Admin: 05/07/17 13:05 Dose: 1 mg Admin: 05/07/17 08:46 Dose: 1 mg Potassium Chloride/Dextrose/Sod Cl (D5 1/2 Ns W/ 20 Meq/L Kcl) 1,000 mls @ 125 mls/hr IV ASDIRECTED YAZ Lorazepam (Ativan) 1 mg IVPUSH DAILY PRN PRN Reason: Anxiety Last Admin: 05/03/17 11:45 Dose: 1 mg Ondansetron HCl (Zofran Odt) 4 mg PO Q4H PRN PRN Reason: nausea, able to take PO Last Admin: 05/04/17 04:20 Dose: 4 mg Admin: 05/03/17 04:46 Dose: 4 mg Pantoprazole Sodium (Protonix Iv) 40 mg IVPUSH DAILY YAZ Last Admin: 05/08/17 09:02 Dose: 40 mg Admin: 05/07/17 08:52 Dose: 40 mg Admin: 05/06/17 08:36 Dose: 40 mg Admin: 05/05/17 08:48 Dose: 40 mg Admin: 05/04/17 09:47 Dose: 40 mg Admin: 05/03/17 09:07 Dose: 40 mg - Assessment Assessment (Free Text/Narrative):: still no bowel function - Plan Plan (Free Text/Narrative):: check labs this am. change IVF to D51/2 NS with 20 ashlyn of KCL continue current rx.
[2017-05-09] MEDS: D5 1/2 NS w/ 20 mEq/L KCl 1,000 ML IV SCH ×2 (09:00→17:01)
[2017-05-09] MEDS: Pantoprazole 40 MG Vial IVPUSH SCH (09:03)
[2017-05-09] MEDS ORDERED: Potassium Chloride 20 MEQ in Premix Bag 1 BAG IV ONE (15:11)
[2017-05-10] MEDS: D5 1/2 NS w/ 20 mEq/L KCl 1,000 ML IV SCH ×3 (00:55→16:51)
[2017-05-10] MEDS: Pantoprazole 40 MG Vial IVPUSH SCH (10:32)
[2017-05-10] MEDS: Metoclopramide 10 MG/2 ML SDV IV SCH ×2 (10:39→18:14)
[2017-05-10] MEDS: HYDROmorphone 2 MG/ML SDV IVPUSH PRN ×3 (15:06→23:05)
--- NOTE | 2017-05-10 18:23 | PCM.SURGPN ---
- General Info Date of Service: 05/10/17 POD#: 4 Functional Status: Reports: Pain Controlled, Ambulating, Urinating - Review of Systems Gastrointestinal: Reports: Flatus (some flatus this pm ) - Patient Data Vitals - Most Recent: Last Vital Signs Temp 36.8 C 05/10/17 16:20 Pulse 82 05/10/17 16:20 Resp 18 05/10/17 16:20 BP 136/84 05/10/17 16:20 Pulse Ox 94 L 05/10/17 16:20 Weight - Most Recent: 70.76 kg I&O - Last 24 Hours: Intake & Output 05/10/17 05/10/17 05/10/17 06:59 14:59 22:59 Intake Total 786 1500 Output Total 500 1600 175 Balance 286 -100 -175 Lab Results Last 24 Hrs: Laboratory Results - last 24 hr 05/04/17 05/10/17 Range/Units 17:25 06:30 Sodium 141 (135-145) mmol/L Potassium 3.7 (3.5-5.3) mmol/L Chloride 104 (100-110) mmol/L Carbon Dioxide 31 (21-32) mmol/L BUN 2 L (7-18) mg/dL Creatinine 0.6 (0.55-1.02) mg/dL Est Cr Clr Drug Dosing 82.18 mL/min Estimated GFR (MDRD) > 60 (>60) BUN/Creatinine Ratio 3.3 L (9-20) Glucose 142 H (80-116) mg/dL Calcium 8.4 L (8.6-10.2) mg/dL Stl Lactoferrin (IFTIKHAR) Positive H (NEG) Germain Results Last 24 Hrs: Microbiology 05/04/17 17:25 Occult Blood - Final Stool / Feces Med Orders - Current: Current Medications Hydromorphone HCl (Dilaudid) 1 mg IVPUSH Q4H PRN PRN Reason: Pain Last Admin: 05/10/17 15:06 Dose: 1 mg Potassium Chloride/Dextrose/Sod Cl (D5 1/2 Ns W/ 20 Meq/L Kcl) 1,000 mls @ 125 mls/hr IV Q8H [facility] Last Admin: 05/10/17 16:51 Dose: 125 mls/hr Lorazepam (Ativan) 1 mg IVPUSH DAILY PRN PRN Reason: Anxiety Last Admin: 05/03/17 11:45 Dose: 1 mg Metoclopramide HCl (Reglan) 10 mg IV Q8H [facility] Last Admin: 05/10/17 18:14 Dose: 10 mg Ondansetron HCl (Zofran Odt) 4 mg PO Q4H PRN PRN Reason: nausea, able to take PO Last Admin: 05/04/17 04:20 Dose: 4 mg Pantoprazole Sodium (Protonix Iv) 40 mg IVPUSH DAILY [facility] Last Admin: 05/10/17 10:32 Dose: 40 mg Discontinued Medications Acetaminophen (Tylenol) 650 mg RECTAL Q4H PRN PRN Reason: Mild pain/fever Acetaminophen (Tylenol) 650 mg PO Q4H PRN PRN Reason: Abdominal Pain Bisacodyl (Dulcolax) 10 mg RECTAL ONETIME ONE Stop: 05/04/17 09:41 Last Admin: 05/04/17 10:23 Dose: 10 mg Cefazolin Sodium (Ancef) 1 gm IV ONETIME ONE Stop: 05/06/17 11:46 Last Admin: 05/06/17 11:51 Dose: 1 gm Diatrizoate Meglum/Diatrizoate Sod (Gastrografin 37%) 30 ml PO . DIRECTED [facility] Last Admin: 05/02/17 11:39 Dose: 30 ml Famotidine (Pepcid) 20 mg PO BID [facility] Last Admin: 05/04/17 19:45 Dose: Not Given Fentanyl (Sublimaze) 50 mcg IVPUSH Q30M PRN PRN Reason: Abdominal Pain Last Admin: 05/02/17 18:51 Dose: 50 mcg Fentanyl (Sublimaze) 100 mcg IVPUSH Q1H PRN PRN Reason: Abdominal Pain Last Admin: 05/07/17 04:57 Dose: 100 mcg Fentanyl (Sublimaze) 100 mcg IV .STK-MED ONE Stop: 05/06/17 12:01 Hydroxyzine HCl (Vistaril) 50 mg IM .STK-MED ONE Stop: 05/06/17 12:01 Sodium Chloride (Normal Saline) 1,000 mls @ 999 mls/hr IV ASDIRECTED [facility] Last Admin: 05/02/17 09:45 Dose: 999 mls/hr Sodium Chloride (Normal Saline) 1,000 mls @ 100 mls/hr IV ASDIRECTED [facility] Stop: 05/03/17 17:16 Last Admin: 05/03/17 15:34 Dose: 100 mls/hr Sodium Chloride (Normal Saline) 1,000 mls @ 999 mls/hr IV ASDIRECTED [facility] Sodium Chloride (Normal Saline) 1,000 mls @ 999 mls/hr IV ASDIRECTED ONE Stop: 05/02/17 21:45 Last Admin: 05/02/17 20:50 Dose: 999 mls/hr Sodium Chloride (Normal Saline) 1,000 mls @ 999 mls/hr IV .BOLUS ONE Stop: 05/03/17 23:27 Last Admin: 05/03/17 22:47 Dose: 999 mls/hr Sodium Chloride (Normal Saline) 1,000 mls @ 125 mls/hr IV ASDIRECTED [facility] Last Admin: 05/06/17 08:32 Dose: 125 mls/hr Lactated Ringer's (Ringers, Lactated) 1,000 mls @ 999 mls/hr IV ASDIRECTED [facility] Last Admin: 05/04/17 11:23 Dose: 999 mls/hr Sodium Chloride (Normal Saline) 1,000 mls @ 999 mls/hr IV ASDIRECTED [facility] Stop: 05/05/17 14:31 Last Admin: 05/04/17 14:22 Dose: 999 mls/hr Sodium Chloride (Normal Saline) 1,000 mls @ 500 mls/hr IV ASDIRECTED [facility] Sodium Chloride (Normal Saline) 1,000 mls @ 500 mls/hr IV ASDIRECTED [facility] Last Admin: 05/05/17 09:25 Dose: 500 mls/hr Lactated Ringer's (Ringers, Lactated) 1,000 mls @ 125 mls/hr IV ASDIRECTED [facility] Last Admin: 05/09/17 05:42 Dose: 125 mls/hr Lactated Ringer's (Ringers, Lactated) 1,000 mls @ as directed IV .STK-MED ONE Stop: 05/06/17 12:01 Potassium Chloride 20 meq/ (Premix) 100 mls @ 50 mls/hr IV ONETIME ONE Stop: 05/09/17 17:10 Last Admin: 05/09/17 15:25 Dose: 50 mls/hr Iopamidol (Isovue-370 (76%)) 75 ml IV ONETIME ONE Stop: 05/02/17 11:31 Last Admin: 05/02/17 11:39 Dose: 73 ml Ketorolac Tromethamine (Toradol) 30 mg IVPUSH ONETIME ONE Stop: 05/02/17 09:27 Last Admin: 05/02/17 09:48 Dose: 30 mg Ketorolac Tromethamine (Toradol) 30 mg IVPUSH Q6H PRN PRN Reason: Pain Stop: 05/07/17 20:05 Last Admin: 05/04/17 05:41 Dose: 30 mg Ketorolac Tromethamine (Toradol) 30 mg IVPUSH .STK-MED ONE Stop: 05/06/17 12:01 Midazolam HCl (Versed 1 Mg/Ml) 2 mg IV .STK-MED ONE Stop: 05/06/17 12:01 Morphine Sulfate (Morphine) 4 mg IVPUSH ONETIME ONE Stop: 05/02/17 09:29 Last Admin: 05/02/17 09:48 Dose: 4 mg Morphine Sulfate (Morphine) 2 mg IVPUSH ONETIME ONE Stop: 05/02/17 10:50 Last Admin: 05/02/17 10:54 Dose: 2 mg Morphine Sulfate (Morphine) 4 mg IVPUSH ONETIME ONE Stop: 05/02/17 12:16 Last Admin: 05/02/17 12:30 Dose: 4 mg Morphine Sulfate (Morphine) 2 mg IVPUSH Q3M PRN PRN Reason: Abdominal Pain Morphine Sulfate (Morphine) 10 mg IVPUSH .STK-MED ONE Stop: 05/06/17 12:01 Ondansetron HCl (Zofran) 4 mg IVPUSH ONETIME ONE Stop: 05/02/17 09:29 Last Admin: 05/02/17 09:47 Dose: 4 mg Ondansetron HCl (Zofran) 4 mg IVPUSH .STK-MED ONE Stop: 05/06/17 12:01 Propofol (Diprivan 20 Ml) 180 mg IV .STK-MED ONE Stop: 05/06/17 12:01 Ranitidine HCl (Zantac) 150 mg PO BID [facility] Last Admin: 05/03/17 10:02 Dose: 150 mg Rocuronium [place] (Zemuron) 35 mg IV .STK-MED ONE Stop: 05/06/17 12:01 Sodium Chloride (Saline Flush) 10 ml FLUSH ASDIRECTED PRN PRN Reason: Keep Vein Open Last Admin: 05/06/17 11:58 Dose: 10 ml Succinylcholine Chloride (Quelicin) 100 mg IV .STK-MED ONE Stop: 05/06/17 12:01 Temazepam (Restoril) 7.5 mg PO BEDTIME PRN PRN Reason: Sleep - Exam Wound/Incisions: Healing Well Lungs: Clear to Auscultation, Normal Respiratory Effort Cardiovascular: Regular Rate, Regular Rhythm GI/Abdominal Exam: Normal Bowel Sounds (better this than this am ), Soft, Non- Tender - Problem List & Annotations (1) Small bowel obstruction due to adhesions SNOMED Code(s): 142153836 Code(s): K56.50 - INTESTNL ADHESIONS, UNSP TO PARTIAL VERSUS COMPLETE OBST Status: Acute Current Visit: Yes Annotation/Comment:: single band partial obstruction - Problem List Review Problem List Initiated/Reviewed/Updated: Yes - My Orders Last 24 Hours: Active Orders 24 hr Category Date Time Status Metoclopramide [Reglan] Med 05/10/17 09:45 Active 10 mg IV Q8H Medication Orders Hydromorphone HCl (Dilaudid) 1 mg IVPUSH Q4H PRN PRN Reason: Pain Last Admin: 05/10/17 15:06 Dose: 1 mg Admin: 05/09/17 23:39 Dose: 1 mg Admin: 05/09/17 19:09 Dose: 1 mg Admin: 05/09/17 14:13 Dose: 1 mg Admin: 05/09/17 06:49 Dose: 1 mg Admin: 05/09/17 01:46 Dose: 1 mg Admin: 05/08/17 21:12 Dose: 1 mg Admin: 05/08/17 17:19 Dose: 1 mg Admin: 05/08/17 13:27 Dose: 1 mg Admin: 05/08/17 08:55 Dose: 1 mg Admin: 05/08/17 02:55 Dose: 1 mg Admin: 05/07/17 22:26 Dose: 1 mg Admin: 05/07/17 18:21 Dose: 1 mg Admin: 05/07/17 13:05 Dose: 1 mg Admin: 05/07/17 08:46 Dose: 1 mg Potassium Chloride/Dextrose/Sod Cl (D5 1/2 Ns W/ 20 Meq/L Kcl) 1,000 mls @ 125 mls/hr IV Q8H [facility] Last Admin: 05/10/17 16:51 Dose: 125 mls/hr Infusion: 05/10/17 16:51 Dose: 125 mls/hr Admin: 05/10/17 10:31 Dose: 125 mls/hr Infusion: 05/10/17 08:55 Dose: 125 mls/hr Admin: 05/10/17 00:55 Dose: 125 mls/hr Infusion: 05/10/17 00:55 Dose: 125 mls/hr Admin: 05/09/17 17:01 Dose: 125 mls/hr Infusion: 05/09/17 17:00 Dose: 125 mls/hr Admin: 05/09/17 09:00 Dose: 125 mls/hr Lorazepam (Ativan) 1 mg IVPUSH DAILY PRN PRN Reason: Anxiety Last Admin: 05/03/17 11:45 Dose: 1 mg Metoclopramide HCl (Reglan) 10 mg IV Q8H [facility] Last Admin: 05/10/17 18:14 Dose: 10 mg Admin: 05/10/17 10:39 Dose: 10 mg Ondansetron HCl (Zofran Odt) 4 mg PO Q4H PRN PRN Reason: nausea, able to take PO Last Admin: 05/04/17 04:20 Dose: 4 mg Admin: 05/03/17 04:46 Dose: 4 mg Pantoprazole Sodium (Protonix Iv) 40 mg IVPUSH DAILY [facility] Last Admin: 05/10/17 10:32 Dose: 40 mg Admin: 05/09/17 09:03 Dose: 40 mg Admin: 05/08/17 09:02 Dose: 40 mg Admin: 05/07/17 08:52 Dose: 40 mg Admin: 05/06/17 08:36 Dose: 40 mg Admin: 05/05/17 08:48 Dose: 40 mg Admin: 05/04/17 09:47 Dose: 40 mg Admin: 05/03/17 09:07 Dose: 40 mg - Assessment Assessment (Free Text/Narrative):: slow return of bowel function. - Plan Plan (Free Text/Narrative):: we started some reglan this am will continue if continues to have flatus will d/c ngt in am
[2017-05-11] MEDS: D5 1/2 NS w/ 20 mEq/L KCl 1,000 ML IV SCH ×3 (00:56→17:37)
[2017-05-11] MEDS: Metoclopramide 10 MG/2 ML SDV IV SCH ×3 (01:44→18:35)
[2017-05-11] MEDS: HYDROmorphone 2 MG/ML SDV IVPUSH PRN ×2 (03:38→16:08)
[2017-05-11] MEDS ORDERED: Bisacodyl 5 MG Tab PO ONE (07:56)
--- NOTE | 2017-05-11 07:56 | PCM.SURGPN ---
- General Info Date of Service: 05/11/17 POD#: 5 Functional Status: Reports: Pain Controlled, Ambulating, Urinating, Incentive Spirometry - Review of Systems Pulmonary: Reports: No Symptoms Cardiovascular: Reports: No Symptoms Gastrointestinal: Reports: Flatus. Denies: Abdominal Pain - Patient Data Vitals - Most Recent: Last Vital Signs Temp 36.7 C 05/11/17 00:30 Pulse 88 05/11/17 03:59 Resp 20 05/11/17 00:30 BP 111/69 05/11/17 03:59 Pulse Ox 96 05/11/17 00:30 Weight - Most Recent: 70.76 kg I&O - Last 24 Hours: Intake & Output 05/10/17 05/11/17 05/11/17 22:59 06:59 14:59 Intake Total 800 1019 Output Total 625 1100 Balance 175 -81 Lab Results Last 24 Hrs: Laboratory Results - last 24 hr 05/10/17 Range/Units 06:30 Sodium 141 (135-145) mmol/L Potassium 3.7 (3.5-5.3) mmol/L Chloride 104 (100-110) mmol/L Carbon Dioxide 31 (21-32) mmol/L BUN 2 L (7-18) mg/dL Creatinine 0.6 (0.55-1.02) mg/dL Est Cr Clr Drug Dosing 82.18 mL/min Estimated GFR (MDRD) > 60 (>60) BUN/Creatinine Ratio 3.3 L (9-20) Glucose 142 H (80-116) mg/dL Calcium 8.4 L (8.6-10.2) mg/dL [facility] Results Last 24 Hrs: Microbiology 05/04/17 17:25 Occult Blood - Final Stool / Feces Med Orders - Current: Current Medications Hydromorphone HCl (Dilaudid) 1 mg IVPUSH Q4H PRN PRN Reason: Pain Last Admin: 05/11/17 03:38 Dose: 1 mg Potassium Chloride/Dextrose/Sod Cl (D5 1/2 Ns W/ 20 Meq/L Kcl) 1,000 mls @ 125 mls/hr IV Q8H [facility] Last Admin: 05/11/17 00:56 Dose: 125 mls/hr Lorazepam (Ativan) 1 mg IVPUSH DAILY PRN PRN Reason: Anxiety Last Admin: 05/03/17 11:45 Dose: 1 mg Metoclopramide HCl (Reglan) 10 mg IV Q8H [facility] Last Admin: 05/11/17 01:44 Dose: 10 mg Ondansetron HCl (Zofran Odt) 4 mg PO Q4H PRN PRN Reason: nausea, able to take PO Last Admin: 05/04/17 04:20 Dose: 4 mg Pantoprazole Sodium (Protonix Iv) 40 mg IVPUSH DAILY [facility] Last Admin: 05/10/17 10:32 Dose: 40 mg Discontinued Medications Acetaminophen (Tylenol) 650 mg RECTAL Q4H PRN PRN Reason: Mild pain/fever Acetaminophen (Tylenol) 650 mg PO Q4H PRN PRN Reason: Abdominal Pain Bisacodyl (Dulcolax) 10 mg RECTAL ONETIME ONE Stop: 05/04/17 09:41 Last Admin: 05/04/17 10:23 Dose: 10 mg Cefazolin Sodium (Ancef) 1 gm IV ONETIME ONE Stop: 05/06/17 11:46 Last Admin: 05/06/17 11:51 Dose: 1 gm Diatrizoate Meglum/Diatrizoate Sod (Gastrografin 37%) 30 ml PO . DIRECTED [facility] Last Admin: 05/02/17 11:39 Dose: 30 ml Famotidine (Pepcid) 20 mg PO BID [facility] Last Admin: 05/04/17 19:45 Dose: Not Given Fentanyl (Sublimaze) 50 mcg IVPUSH Q30M PRN PRN Reason: Abdominal Pain Last Admin: 05/02/17 18:51 Dose: 50 mcg Fentanyl (Sublimaze) 100 mcg IVPUSH Q1H PRN PRN Reason: Abdominal Pain Last Admin: 05/07/17 04:57 Dose: 100 mcg Fentanyl (Sublimaze) 100 mcg IV .STK-MED ONE Stop: 05/06/17 12:01 Hydroxyzine HCl (Vistaril) 50 mg IM .STK-MED ONE Stop: 05/06/17 12:01 Sodium Chloride (Normal Saline) 1,000 mls @ 999 mls/hr IV ASDIRECTED [facility] Last Admin: 05/02/17 09:45 Dose: 999 mls/hr Sodium Chloride (Normal Saline) 1,000 mls @ 100 mls/hr IV ASDIRECTED [facility] Stop: 05/03/17 17:16 Last Admin: 05/03/17 15:34 Dose: 100 mls/hr Sodium Chloride (Normal Saline) 1,000 mls @ 999 mls/hr IV ASDIRECTED [facility] Sodium Chloride (Normal Saline) 1,000 mls @ 999 mls/hr IV ASDIRECTED ONE Stop: 05/02/17 21:45 Last Admin: 05/02/17 20:50 Dose: 999 mls/hr Sodium Chloride (Normal Saline) 1,000 mls @ 999 mls/hr IV .BOLUS ONE Stop: 05/03/17 23:27 Last Admin: 05/03/17 22:47 Dose: 999 mls/hr Sodium Chloride (Normal Saline) 1,000 mls @ 125 mls/hr IV ASDIRECTED [facility] Last Admin: 05/06/17 08:32 Dose: 125 mls/hr Lactated Ringer's (Ringers, Lactated) 1,000 mls @ 999 mls/hr IV ASDIRECTED [facility] Last Admin: 05/04/17 11:23 Dose: 999 mls/hr Sodium Chloride (Normal Saline) 1,000 mls @ 999 mls/hr IV ASDIRECTED [facility] Stop: 05/05/17 14:31 Last Admin: 05/04/17 14:22 Dose: 999 mls/hr Sodium Chloride (Normal Saline) 1,000 mls @ 500 mls/hr IV ASDIRECTED [facility] Sodium Chloride (Normal Saline) 1,000 mls @ 500 mls/hr IV ASDIRECTED [facility] Last Admin: 05/05/17 09:25 Dose: 500 mls/hr Lactated Ringer's (Ringers, Lactated) 1,000 mls @ 125 mls/hr IV ASDIRECTED [facility] Last Admin: 05/09/17 05:42 Dose: 125 mls/hr Lactated Ringer's (Ringers, Lactated) 1,000 mls @ as directed IV .STK-MED ONE Stop: 05/06/17 12:01 Potassium Chloride 20 meq/ (Premix) 100 mls @ 50 mls/hr IV ONETIME ONE Stop: 05/09/17 17:10 Last Admin: 05/09/17 15:25 Dose: 50 mls/hr Iopamidol (Isovue-370 (76%)) 75 ml IV ONETIME ONE Stop: 05/02/17 11:31 Last Admin: 05/02/17 11:39 Dose: 73 ml Ketorolac Tromethamine (Toradol) 30 mg IVPUSH ONETIME ONE Stop: 05/02/17 09:27 Last Admin: 05/02/17 09:48 Dose: 30 mg Ketorolac Tromethamine (Toradol) 30 mg IVPUSH Q6H PRN PRN Reason: Pain Stop: 05/07/17 20:05 Last Admin: 05/04/17 05:41 Dose: 30 mg Ketorolac Tromethamine (Toradol) 30 mg IVPUSH .STK-MED ONE Stop: 05/06/17 12:01 Midazolam HCl (Versed 1 Mg/Ml) 2 mg IV .STK-MED ONE Stop: 05/06/17 12:01 Morphine Sulfate (Morphine) 4 mg IVPUSH ONETIME ONE Stop: 05/02/17 09:29 Last Admin: 05/02/17 09:48 Dose: 4 mg Morphine Sulfate (Morphine) 2 mg IVPUSH ONETIME ONE Stop: 05/02/17 10:50 Last Admin: 05/02/17 10:54 Dose: 2 mg Morphine Sulfate (Morphine) 4 mg IVPUSH ONETIME ONE Stop: 05/02/17 12:16 Last Admin: 05/02/17 12:30 Dose: 4 mg Morphine Sulfate (Morphine) 2 mg IVPUSH Q3M PRN PRN Reason: Abdominal Pain Morphine Sulfate (Morphine) 10 mg IVPUSH .STK-MED ONE Stop: 05/06/17 12:01 Ondansetron HCl (Zofran) 4 mg IVPUSH ONETIME ONE Stop: 05/02/17 09:29 Last Admin: 05/02/17 09:47 Dose: 4 mg Ondansetron HCl (Zofran) 4 mg IVPUSH .STK-MED ONE Stop: 05/06/17 12:01 Propofol (Diprivan 20 Ml) 180 mg IV .STK-MED ONE Stop: 05/06/17 12:01 Ranitidine HCl (Zantac) 150 mg PO BID [facility] Last Admin: 05/03/17 10:02 Dose: 150 mg Rocuronium [place] (Zemuron) 35 mg IV .STK-MED ONE Stop: 05/06/17 12:01 Sodium Chloride (Saline Flush) 10 ml FLUSH ASDIRECTED PRN PRN Reason: Keep Vein Open Last Admin: 05/06/17 11:58 Dose: 10 ml Succinylcholine Chloride (Quelicin) 100 mg IV .STK-MED ONE Stop: 05/06/17 12:01 Temazepam (Restoril) 7.5 mg PO BEDTIME PRN PRN Reason: Sleep - Exam Wound/Incisions: Healing Well Lungs: Clear to Auscultation, Normal Respiratory Effort Cardiovascular: Regular Rate, Regular Rhythm GI/Abdominal Exam: Normal Bowel Sounds, Non-Tender, No Distention - Problem List & Annotations (1) Small bowel obstruction due to adhesions SNOMED Code(s): 327298625 Code(s): K56.50 - INTESTNL ADHESIONS, UNSP TO PARTIAL VERSUS COMPLETE OBST Status: Acute Current Visit: Yes Annotation/Comment:: single band partial obstruction - Problem List Review Problem List Initiated/Reviewed/Updated: Yes - My Orders Last 24 Hours: Active Orders 24 hr Category Date Time Status Metoclopramide [Reglan] Med 05/10/17 09:45 Active 10 mg IV Q8H Medication Orders Hydromorphone HCl (Dilaudid) 1 mg IVPUSH Q4H PRN PRN Reason: Pain Last Admin: 05/11/17 03:38 Dose: 1 mg Admin: 05/10/17 23:05 Dose: 1 mg Admin: 05/10/17 18:58 Dose: 1 mg Admin: 05/10/17 15:06 Dose: 1 mg Admin: 05/09/17 23:39 Dose: 1 mg Admin: 05/09/17 19:09 Dose: 1 mg Admin: 05/09/17 14:13 Dose: 1 mg Admin: 05/09/17 06:49 Dose: 1 mg Admin: 05/09/17 01:46 Dose: 1 mg Admin: 05/08/17 21:12 Dose: 1 mg Admin: 05/08/17 17:19 Dose: 1 mg Admin: 05/08/17 13:27 Dose: 1 mg Admin: 05/08/17 08:55 Dose: 1 mg Admin: 05/08/17 02:55 Dose: 1 mg Admin: 05/07/17 22:26 Dose: 1 mg Admin: 05/07/17 18:21 Dose: 1 mg Admin: 05/07/17 13:05 Dose: 1 mg Admin: 05/07/17 08:46 Dose: 1 mg Potassium Chloride/Dextrose/Sod Cl (D5 1/2 Ns W/ 20 Meq/L Kcl) 1,000 mls @ 125 mls/hr IV Q8H [facility] Last Admin: 05/11/17 00:56 Dose: 125 mls/hr Infusion: 05/11/17 00:51 Dose: 125 mls/hr Admin: 05/10/17 16:51 Dose: 125 mls/hr Infusion: 05/10/17 16:51 Dose: 125 mls/hr Admin: 05/10/17 10:31 Dose: 125 mls/hr Infusion: 05/10/17 08:55 Dose: 125 mls/hr Admin: 05/10/17 00:55 Dose: 125 mls/hr Infusion: 05/10/17 00:55 Dose: 125 mls/hr Admin: 05/09/17 17:01 Dose: 125 mls/hr Infusion: 05/09/17 17:00 Dose: 125 mls/hr Admin: 05/09/17 09:00 Dose: 125 mls/hr Lorazepam (Ativan) 1 mg IVPUSH DAILY PRN PRN Reason: Anxiety Last Admin: 05/03/17 11:45 Dose: 1 mg Metoclopramide HCl (Reglan) 10 mg IV Q8H [facility] Last Admin: 05/11/17 01:44 Dose: 10 mg Admin: 05/10/17 18:14 Dose: 10 mg Admin: 05/10/17 10:39 Dose: 10 mg Ondansetron HCl (Zofran Odt) 4 mg PO Q4H PRN PRN Reason: nausea, able to take PO Last Admin: 05/04/17 04:20 Dose: 4 mg Admin: 05/03/17 04:46 Dose: 4 mg Pantoprazole Sodium (Protonix Iv) 40 mg IVPUSH DAILY [facility] Last Admin: 05/10/17 10:32 Dose: 40 mg Admin: 05/09/17 09:03 Dose: 40 mg Admin: 05/08/17 09:02 Dose: 40 mg Admin: 05/07/17 08:52 Dose: 40 mg Admin: 05/06/17 08:36 Dose: 40 mg Admin: 05/05/17 08:48 Dose: 40 mg Admin: 05/04/17 09:47 Dose: 40 mg Admin: 05/03/17 09:07 Dose: 40 mg - Assessment Assessment (Free Text/Narrative):: NGT appears to be able to removed. - Plan Plan (Free Text/Narrative):: see how tolerates no NGT
[2017-05-11] MEDS ORDERED: Bisacodyl 10 MG Supp RECTAL ONE (08:53)
[2017-05-11] MEDS: Pantoprazole 40 MG Vial IVPUSH SCH (09:14)
[2017-05-12] MEDS: LORazepam 2 MG/ML SDV IVPUSH PRN (00:50)
[2017-05-12] MEDS: Metoclopramide 10 MG/2 ML SDV IV SCH ×3 (00:54→18:14)
[2017-05-12] MEDS: D5 1/2 NS w/ 20 mEq/L KCl 1,000 ML IV SCH (01:38)
[2017-05-12] MEDS: Sodium Chloride 0.9% 10 ML Syringe FLUSH PRN ×3 (08:15→18:16)
--- NOTE | 2017-05-12 08:43 | PCM.SURGPN ---
- General Info Date of Service: 05/12/17 Functional Status: Reports: Pain Controlled, Tolerating Diet, Ambulating, Urinating, Other (bowels moving ) - Patient Data Vitals - Most Recent: Last Vital Signs Temp 36.5 C 05/11/17 23:33 Pulse 95 05/11/17 23:33 Resp 18 05/11/17 23:33 BP 142/91 H 05/11/17 23:33 Pulse Ox 95 05/11/17 23:33 Weight - Most Recent: 70.76 kg I&O - Last 24 Hours: Intake & Output 05/11/17 05/12/17 05/12/17 22:59 06:59 14:59 Intake Total 1113 1054 Balance 1113 1054 Med Orders - Current: Current Medications Hydrocodone Bitart/Acetaminophen ([place] 325-5 Mg) 1 tab PO Q4H PRN PRN Reason: Pain Lisinopril/HCTZ (Lisinopril-Hctz 20-25 Mg) 1 tab PO DAILY [facility] Potassium Chloride/Dextrose/Sod Cl (D5 1/2 Ns W/ 20 Meq/L Kcl) 1,000 mls @ 75 mls/hr IV Q8H [facility] Stop: 05/12/17 14:25 Last Admin: 05/12/17 01:38 Dose: 75 mls/hr Lorazepam (Ativan) 1 mg IVPUSH DAILY PRN PRN Reason: Anxiety Last Admin: 05/12/17 00:50 Dose: 1 mg Metoclopramide HCl (Reglan) 10 mg IV Q8H [facility] Last Admin: 05/12/17 00:54 Dose: 10 mg Ondansetron HCl (Zofran Odt) 4 mg PO Q4H PRN PRN Reason: nausea, able to take PO Last Admin: 05/04/17 04:20 Dose: 4 mg Discontinued Medications Acetaminophen (Tylenol) 650 mg RECTAL Q4H PRN PRN Reason: Mild pain/fever Acetaminophen (Tylenol) 650 mg PO Q4H PRN PRN Reason: Abdominal Pain Bisacodyl (Dulcolax) 10 mg RECTAL ONETIME ONE Stop: 05/04/17 09:41 Last Admin: 05/04/17 10:23 Dose: 10 mg Bisacodyl (Dulcolax) 10 mg RECTAL ONETIME ONE Stop: 05/11/17 08:54 Last Admin: 05/11/17 09:53 Dose: 10 mg Cefazolin Sodium (Ancef) 1 gm IV ONETIME ONE Stop: 05/06/17 11:46 Last Admin: 05/06/17 11:51 Dose: 1 gm Diatrizoate Meglum/Diatrizoate Sod (Gastrografin 37%) 30 ml PO . DIRECTED [facility] Last Admin: 05/02/17 11:39 Dose: 30 ml Famotidine (Pepcid) 20 mg PO BID [facility] Last Admin: 05/04/17 19:45 Dose: Not Given Fentanyl (Sublimaze) 50 mcg IVPUSH Q30M PRN PRN Reason: Abdominal Pain Last Admin: 05/02/17 18:51 Dose: 50 mcg Fentanyl (Sublimaze) 100 mcg IVPUSH Q1H PRN PRN Reason: Abdominal Pain Last Admin: 05/07/17 04:57 Dose: 100 mcg Fentanyl (Sublimaze) 100 mcg IV .STK-MED ONE Stop: 05/06/17 12:01 Hydromorphone HCl (Dilaudid) 1 mg IVPUSH Q4H PRN PRN Reason: Pain Last Admin: 05/11/17 16:08 Dose: 1 mg Hydroxyzine HCl (Vistaril) 50 mg IM .STK-MED ONE Stop: 05/06/17 12:01 Sodium Chloride (Normal Saline) 1,000 mls @ 999 mls/hr IV ASDIRECTED [facility] Last Admin: 05/02/17 09:45 Dose: 999 mls/hr Sodium Chloride (Normal Saline) 1,000 mls @ 100 mls/hr IV ASDIRECTED [facility] Stop: 05/03/17 17:16 Last Admin: 05/03/17 15:34 Dose: 100 mls/hr Sodium Chloride (Normal Saline) 1,000 mls @ 999 mls/hr IV ASDIRECTED [facility] Sodium Chloride (Normal Saline) 1,000 mls @ 999 mls/hr IV ASDIRECTED ONE Stop: 05/02/17 21:45 Last Admin: 05/02/17 20:50 Dose: 999 mls/hr Sodium Chloride (Normal Saline) 1,000 mls @ 999 mls/hr IV .BOLUS ONE Stop: 05/03/17 23:27 Last Admin: 05/03/17 22:47 Dose: 999 mls/hr Sodium Chloride (Normal Saline) 1,000 mls @ 125 mls/hr IV ASDIRECTED [facility] Last Admin: 05/06/17 08:32 Dose: 125 mls/hr Lactated Ringer's (Ringers, Lactated) 1,000 mls @ 999 mls/hr IV ASDIRECTED [facility] Last Admin: 05/04/17 11:23 Dose: 999 mls/hr Sodium Chloride (Normal Saline) 1,000 mls @ 999 mls/hr IV ASDIRECTED [facility] Stop: 05/05/17 14:31 Last Admin: 05/04/17 14:22 Dose: 999 mls/hr Sodium Chloride (Normal Saline) 1,000 mls @ 500 mls/hr IV ASDIRECTED [facility] Sodium Chloride (Normal Saline) 1,000 mls @ 500 mls/hr IV ASDIRECTED [facility] Last Admin: 05/05/17 09:25 Dose: 500 mls/hr Lactated Ringer's (Ringers, Lactated) 1,000 mls @ 125 mls/hr IV ASDIRECTED [facility] Last Admin: 05/09/17 05:42 Dose: 125 mls/hr Lactated Ringer's (Ringers, Lactated) 1,000 mls @ as directed IV .STK-MED ONE Stop: 05/06/17 12:01 Potassium Chloride 20 meq/ (Premix) 100 mls @ 50 mls/hr IV ONETIME ONE Stop: 05/09/17 17:10 Last Admin: 05/09/17 15:25 Dose: 50 mls/hr Potassium Chloride/Dextrose/Sod Cl (D5 1/2 Ns W/ 20 Meq/L Kcl) 1,000 mls @ 75 mls/hr IV Q13H [facility] Iopamidol (Isovue-370 (76%)) 75 ml IV ONETIME ONE Stop: 05/02/17 11:31 Last Admin: 05/02/17 11:39 Dose: 73 ml Ketorolac Tromethamine (Toradol) 30 mg IVPUSH ONETIME ONE Stop: 05/02/17 09:27 Last Admin: 05/02/17 09:48 Dose: 30 mg Ketorolac Tromethamine (Toradol) 30 mg IVPUSH Q6H PRN PRN Reason: Pain Stop: 05/07/17 20:05 Last Admin: 05/04/17 05:41 Dose: 30 mg Ketorolac Tromethamine (Toradol) 30 mg IVPUSH .STK-MED ONE Stop: 05/06/17 12:01 Midazolam HCl (Versed 1 Mg/Ml) 2 mg IV .STK-MED ONE Stop: 05/06/17 12:01 Morphine Sulfate (Morphine) 4 mg IVPUSH ONETIME ONE Stop: 05/02/17 09:29 Last Admin: 05/02/17 09:48 Dose: 4 mg Morphine Sulfate (Morphine) 2 mg IVPUSH ONETIME ONE Stop: 05/02/17 10:50 Last Admin: 05/02/17 10:54 Dose: 2 mg Morphine Sulfate (Morphine) 4 mg IVPUSH ONETIME ONE Stop: 05/02/17 12:16 Last Admin: 05/02/17 12:30 Dose: 4 mg Morphine Sulfate (Morphine) 2 mg IVPUSH Q3M PRN PRN Reason: Abdominal Pain Morphine Sulfate (Morphine) 10 mg IVPUSH .STK-MED ONE Stop: 05/06/17 12:01 Ondansetron HCl (Zofran) 4 mg IVPUSH ONETIME ONE Stop: 05/02/17 09:29 Last Admin: 05/02/17 09:47 Dose: 4 mg Ondansetron HCl (Zofran) 4 mg IVPUSH .STK-MED ONE Stop: 05/06/17 12:01 Pantoprazole Sodium (Protonix Iv) 40 mg IVPUSH DAILY [facility] Last Admin: 05/11/17 09:14 Dose: 40 mg Propofol (Diprivan 20 Ml) 180 mg IV .STK-MED ONE Stop: 05/06/17 12:01 Ranitidine HCl (Zantac) 150 mg PO BID [facility] Last Admin: 05/03/17 10:02 Dose: 150 mg Rocuronium [place] (Zemuron) 35 mg IV .STK-MED ONE Stop: 05/06/17 12:01 Sodium Chloride (Saline Flush) 10 ml FLUSH ASDIRECTED PRN PRN Reason: Keep Vein Open Last Admin: 05/06/17 11:58 Dose: 10 ml Succinylcholine Chloride (Quelicin) 100 mg IV .STK-MED ONE Stop: 05/06/17 12:01 Temazepam (Restoril) 7.5 mg PO BEDTIME PRN PRN Reason: Sleep - Exam Wound/Incisions: Healing Well Lungs: Clear to Auscultation, Normal Respiratory Effort Cardiovascular: Regular Rate, Regular Rhythm GI/Abdominal Exam: Normal Bowel Sounds, Soft, Non-Tender - Problem List & Annotations (1) Small bowel obstruction due to adhesions SNOMED Code(s): 026649032 Code(s): K56.50 - INTESTNL ADHESIONS, UNSP TO PARTIAL VERSUS COMPLETE OBST Status: Acute Current Visit: Yes Annotation/Comment:: single band partial obstruction - Problem List Review Problem List Initiated/Reviewed/Updated: Yes - My Orders Last 24 Hours: Active Orders 24 hr Category Date Time Status Vital Signs [RC] QSHIFT Care 05/11/17 17:12 Active Regular Diet [DIET] Diet 05/12/17 Lunch Ordered Acetaminophen/HYDROcodone [[place] 325-5 MG] Med 05/12/17 08:40 Ordered 1 tab PO Q4H PRN Hydrochlorothiazide/Lisinopril [Lisinopril-HCTZ 20-25 Med 05/12/17 09:00 Ordered MG] 1 tab PO DAILY Convert IV to Saline Lock [OM.PC] Routine Oth 05/12/17 08:40 Ordered Medication Orders Hydrocodone Bitart/Acetaminophen ([place] 325-5 Mg) 1 tab PO Q4H PRN PRN Reason: Pain Lisinopril/HCTZ (Lisinopril-Hctz 20-25 Mg) 1 tab PO DAILY [facility] Potassium Chloride/Dextrose/Sod Cl (D5 1/2 Ns W/ 20 Meq/L Kcl) 1,000 mls @ 75 mls/hr IV Q8H [facility] Stop: 05/12/17 14:25 Last Admin: 05/12/17 01:38 Dose: 75 mls/hr Infusion: 05/12/17 01:37 Dose: 125 mls/hr Admin: 05/11/17 17:37 Dose: 125 mls/hr Infusion: 05/11/17 17:30 Dose: 125 mls/hr Admin: 05/11/17 09:30 Dose: 125 mls/hr Infusion: 05/11/17 08:56 Dose: 125 mls/hr Admin: 05/11/17 00:56 Dose: 125 mls/hr Infusion: 05/11/17 00:51 Dose: 125 mls/hr Admin: 05/10/17 16:51 Dose: 125 mls/hr Infusion: 05/10/17 16:51 Dose: 125 mls/hr Admin: 05/10/17 10:31 Dose: 125 mls/hr Infusion: 05/10/17 08:55 Dose: 125 mls/hr Admin: 05/10/17 00:55 Dose: 125 mls/hr Infusion: 05/10/17 00:55 Dose: 125 mls/hr Admin: 05/09/17 17:01 Dose: 125 mls/hr Infusion: 05/09/17 17:00 Dose: 125 mls/hr Admin: 05/09/17 09:00 Dose: 125 mls/hr Lorazepam (Ativan) 1 mg IVPUSH DAILY PRN PRN Reason: Anxiety Last Admin: 05/12/17 00:50 Dose: 1 mg Admin: 05/03/17 11:45 Dose: 1 mg Metoclopramide HCl (Reglan) 10 mg IV Q8H [facility] Last Admin: 05/12/17 00:54 Dose: 10 mg Admin: 05/11/17 18:35 Dose: 10 mg Admin: 05/11/17 09:16 Dose: 10 mg Admin: 05/11/17 01:44 Dose: 10 mg Admin: 05/10/17 18:14 Dose: 10 mg Admin: 05/10/17 10:39 Dose: 10 mg Ondansetron HCl (Zofran Odt) 4 mg PO Q4H PRN PRN Reason: nausea, able to take PO Last Admin: 05/04/17 04:20 Dose: 4 mg Admin: 05/03/17 04:46 Dose: 4 mg - Assessment Assessment (Free Text/Narrative):: making excellant progress - Plan Plan (Free Text/Narrative):: advance diet anticipate d/c in am
[2017-05-12] MEDS ORDERED: HYDROmorphone 2 MG/ML SDV IVPUSH ONE (08:47)
[2017-05-12] MEDS: Hydrochlorothiazide/Lisinopril 25-20 MG Tab PO SCH (09:06)
[2017-05-12] MEDS ORDERED: D5 1/2 NS w/ 20 mEq/L KCl 1,000 ML IV SCH (14:30)
[2017-05-12] MEDS: Acetaminophen/HYDROcodone 325-5 MG Tab PO PRN ×2 (15:01→20:41)
[2017-05-13] MEDS: Metoclopramide 10 MG/2 ML SDV IV SCH ×2 (01:03→10:08)
[2017-05-13] MEDS: Sodium Chloride 0.9% 10 ML Syringe FLUSH PRN (01:03)
[2017-05-13] MEDS: Acetaminophen/HYDROcodone 325-5 MG Tab PO PRN (01:09)
[2017-05-13 07:50] VITALS: BP 130/79
--- NOTE | 2017-05-13 08:49 | PCM.SURGPN ---
- General Info Date of Service: 05/13/17 POD#: 7 Functional Status: Reports: Pain Controlled, Tolerating Diet, Ambulating, Urinating. Denies: New Symptoms - Patient Data Vitals - Most Recent: Last Vital Signs Temp 36.6 C 05/13/17 07:45 Pulse 82 05/13/17 07:45 Resp 18 05/13/17 07:45 BP 130/79 05/13/17 07:45 Pulse Ox 94 L 05/13/17 07:45 Weight - Most Recent: 70.76 kg I&O - Last 24 Hours: Intake & Output 05/12/17 05/13/17 05/13/17 22:59 06:59 14:59 Intake Total 12 Balance 12 Med Orders - Current: Current Medications Hydrocodone Bitart/Acetaminophen ([place] 325-5 Mg) 1 tab PO Q4H PRN PRN Reason: Pain Last Admin: 05/13/17 01:09 Dose: 1 tab Lisinopril/HCTZ (Lisinopril-Hctz 20-25 Mg) 1 tab PO DAILY [facility] Last Admin: 05/12/17 09:06 Dose: 1 tab Lorazepam (Ativan) 1 mg IVPUSH DAILY PRN PRN Reason: Anxiety Last Admin: 05/12/17 00:50 Dose: 1 mg Metoclopramide HCl (Reglan) 10 mg IV Q8H [facility] Last Admin: 05/13/17 01:03 Dose: 10 mg Ondansetron HCl (Zofran Odt) 4 mg PO Q4H PRN PRN Reason: nausea, able to take PO Last Admin: 05/04/17 04:20 Dose: 4 mg Sodium Chloride (Saline Flush) 10 ml FLUSH ASDIRECTED PRN PRN Reason: flush med Last Admin: 05/13/17 01:03 Dose: 10 ml Discontinued Medications Acetaminophen (Tylenol) 650 mg RECTAL Q4H PRN PRN Reason: Mild pain/fever Acetaminophen (Tylenol) 650 mg PO Q4H PRN PRN Reason: Abdominal Pain Bisacodyl (Dulcolax) 10 mg RECTAL ONETIME ONE Stop: 05/04/17 09:41 Last Admin: 05/04/17 10:23 Dose: 10 mg Bisacodyl (Dulcolax) 10 mg RECTAL ONETIME ONE Stop: 05/11/17 08:54 Last Admin: 05/11/17 09:53 Dose: 10 mg Cefazolin Sodium (Ancef) 1 gm IV ONETIME ONE Stop: 05/06/17 11:46 Last Admin: 05/06/17 11:51 Dose: 1 gm Diatrizoate Meglum/Diatrizoate Sod (Gastrografin 37%) 30 ml PO . DIRECTED [facility] Last Admin: 05/02/17 11:39 Dose: 30 ml Famotidine (Pepcid) 20 mg PO BID [facility] Last Admin: 05/04/17 19:45 Dose: Not Given Fentanyl (Sublimaze) 50 mcg IVPUSH Q30M PRN PRN Reason: Abdominal Pain Last Admin: 05/02/17 18:51 Dose: 50 mcg Fentanyl (Sublimaze) 100 mcg IVPUSH Q1H PRN PRN Reason: Abdominal Pain Last Admin: 05/07/17 04:57 Dose: 100 mcg Fentanyl (Sublimaze) 100 mcg IV .STK-MED ONE Stop: 05/06/17 12:01 Hydromorphone HCl (Dilaudid) 1 mg IVPUSH Q4H PRN PRN Reason: Pain Last Admin: 05/11/17 16:08 Dose: 1 mg Hydromorphone HCl (Dilaudid) 1 mg IVPUSH ONETIME ONE Stop: 05/12/17 08:48 Last Admin: 05/12/17 08:54 Dose: 1 mg Hydroxyzine HCl (Vistaril) 50 mg IM .STK-MED ONE Stop: 05/06/17 12:01 Sodium Chloride (Normal Saline) 1,000 mls @ 999 mls/hr IV ASDIRECTED [facility] Last Admin: 05/02/17 09:45 Dose: 999 mls/hr Sodium Chloride (Normal Saline) 1,000 mls @ 100 mls/hr IV ASDIRECTED [facility] Stop: 05/03/17 17:16 Last Admin: 05/03/17 15:34 Dose: 100 mls/hr Sodium Chloride (Normal Saline) 1,000 mls @ 999 mls/hr IV ASDIRECTED [facility] Sodium Chloride (Normal Saline) 1,000 mls @ 999 mls/hr IV ASDIRECTED ONE Stop: 05/02/17 21:45 Last Admin: 05/02/17 20:50 Dose: 999 mls/hr Sodium Chloride (Normal Saline) 1,000 mls @ 999 mls/hr IV .BOLUS ONE Stop: 05/03/17 23:27 Last Admin: 05/03/17 22:47 Dose: 999 mls/hr Sodium Chloride (Normal Saline) 1,000 mls @ 125 mls/hr IV ASDIRECTED [facility] Last Admin: 05/06/17 08:32 Dose: 125 mls/hr Lactated Ringer's (Ringers, Lactated) 1,000 mls @ 999 mls/hr IV ASDIRECTED [facility] Last Admin: 05/04/17 11:23 Dose: 999 mls/hr Sodium Chloride (Normal Saline) 1,000 mls @ 999 mls/hr IV ASDIRECTED [facility] Stop: 05/05/17 14:31 Last Admin: 05/04/17 14:22 Dose: 999 mls/hr Sodium Chloride (Normal Saline) 1,000 mls @ 500 mls/hr IV ASDIRECTED [facility] Sodium Chloride (Normal Saline) 1,000 mls @ 500 mls/hr IV ASDIRECTED [facility] Last Admin: 05/05/17 09:25 Dose: 500 mls/hr Lactated Ringer's (Ringers, Lactated) 1,000 mls @ 125 mls/hr IV ASDIRECTED [facility] Last Admin: 05/09/17 05:42 Dose: 125 mls/hr Lactated Ringer's (Ringers, Lactated) 1,000 mls @ as directed IV .STK-MED ONE Stop: 05/06/17 12:01 Potassium Chloride/Dextrose/Sod Cl (D5 1/2 Ns W/ 20 Meq/L Kcl) 1,000 mls @ 75 mls/hr IV Q8H [facility] Stop: 05/12/17 14:25 Last Admin: 05/12/17 01:38 Dose: 75 mls/hr Potassium Chloride 20 meq/ (Premix) 100 mls @ 50 mls/hr IV ONETIME ONE Stop: 05/09/17 17:10 Last Admin: 05/09/17 15:25 Dose: 50 mls/hr Potassium Chloride/Dextrose/Sod Cl (D5 1/2 Ns W/ 20 Meq/L Kcl) 1,000 mls @ 75 mls/hr IV Q13H [facility] Iopamidol (Isovue-370 (76%)) 75 ml IV ONETIME ONE Stop: 05/02/17 11:31 Last Admin: 05/02/17 11:39 Dose: 73 ml Ketorolac Tromethamine (Toradol) 30 mg IVPUSH ONETIME ONE Stop: 05/02/17 09:27 Last Admin: 05/02/17 09:48 Dose: 30 mg Ketorolac Tromethamine (Toradol) 30 mg IVPUSH Q6H PRN PRN Reason: Pain Stop: 05/07/17 20:05 Last Admin: 05/04/17 05:41 Dose: 30 mg Ketorolac Tromethamine (Toradol) 30 mg IVPUSH .STK-MED ONE Stop: 05/06/17 12:01 Midazolam HCl (Versed 1 Mg/Ml) 2 mg IV .STK-MED ONE Stop: 05/06/17 12:01 Morphine Sulfate (Morphine) 4 mg IVPUSH ONETIME ONE Stop: 05/02/17 09:29 Last Admin: 05/02/17 09:48 Dose: 4 mg Morphine Sulfate (Morphine) 2 mg IVPUSH ONETIME ONE Stop: 05/02/17 10:50 Last Admin: 05/02/17 10:54 Dose: 2 mg Morphine Sulfate (Morphine) 4 mg IVPUSH ONETIME ONE Stop: 05/02/17 12:16 Last Admin: 05/02/17 12:30 Dose: 4 mg Morphine Sulfate (Morphine) 2 mg IVPUSH Q3M PRN PRN Reason: Abdominal Pain Morphine Sulfate (Morphine) 10 mg IVPUSH .STK-MED ONE Stop: 05/06/17 12:01 Ondansetron HCl (Zofran) 4 mg IVPUSH ONETIME ONE Stop: 05/02/17 09:29 Last Admin: 05/02/17 09:47 Dose: 4 mg Ondansetron HCl (Zofran) 4 mg IVPUSH .STK-MED ONE Stop: 05/06/17 12:01 Pantoprazole Sodium (Protonix Iv) 40 mg IVPUSH DAILY [facility] Last Admin: 05/11/17 09:14 Dose: 40 mg Propofol (Diprivan 20 Ml) 180 mg IV .STK-MED ONE Stop: 05/06/17 12:01 Ranitidine HCl (Zantac) 150 mg PO BID [facility] Last Admin: 05/03/17 10:02 Dose: 150 mg Rocuronium [place] (Zemuron) 35 mg IV .STK-MED ONE Stop: 05/06/17 12:01 Sodium Chloride (Saline Flush) 10 ml FLUSH ASDIRECTED PRN PRN Reason: Keep Vein Open Last Admin: 05/06/17 11:58 Dose: 10 ml Succinylcholine Chloride (Quelicin) 100 mg IV .STK-MED ONE Stop: 05/06/17 12:01 Temazepam (Restoril) 7.5 mg PO BEDTIME PRN PRN Reason: Sleep - Exam Wound/Incisions: Healing Well Lungs: Clear to Auscultation, Normal Respiratory Effort Cardiovascular: Regular Rate, Regular Rhythm GI/Abdominal Exam: Normal Bowel Sounds, Soft, Non-Tender - Problem List & Annotations (1) Small bowel obstruction due to adhesions SNOMED Code(s): 782586213 Code(s): K56.50 - INTESTNL ADHESIONS, UNSP TO PARTIAL VERSUS COMPLETE OBST Status: Acute Current Visit: Yes Annotation/Comment:: single band partial obstruction - Problem List Review Problem List Initiated/Reviewed/Updated: Yes - My Orders Last 24 Hours: Active Orders 24 hr Category Date Time Status Dietary Supplements [RC] 1400,1900 Care 05/12/17 14:00 Active Regular Diet [DIET] Diet 05/12/17 Lunch Active Acetaminophen/HYDROcodone [[place] 325-5 MG] Med 05/12/17 08:40 Active 1 tab PO Q4H PRN Hydrochlorothiazide/Lisinopril [Lisinopril-HCTZ 20-25 Med 05/12/17 09:00 Active MG] 1 tab PO DAILY Sodium Chloride 0.9% [Saline Flush] Med 05/12/17 08:15 Active 10 ml FLUSH ASDIRECTED PRN Convert IV to Saline Lock [OM.PC] Routine Oth 05/12/17 08:40 Ordered Medication Orders Hydrocodone Bitart/Acetaminophen ([place] 325-5 Mg) 1 tab PO Q4H PRN PRN Reason: Pain Last Admin: 05/13/17 01:09 Dose: 1 tab Admin: 05/12/17 20:41 Dose: 1 tab Admin: 05/12/17 15:01 Dose: 1 tab Lisinopril/HCTZ (Lisinopril-Hctz 20-25 Mg) 1 tab PO DAILY [facility] Last Admin: 05/12/17 09:06 Dose: 1 tab Lorazepam (Ativan) 1 mg IVPUSH DAILY PRN PRN Reason: Anxiety Last Admin: 05/12/17 00:50 Dose: 1 mg Admin: 05/03/17 11:45 Dose: 1 mg Metoclopramide HCl (Reglan) 10 mg IV Q8H [facility] Last Admin: 05/13/17 01:03 Dose: 10 mg Admin: 05/12/17 18:14 Dose: 10 mg Admin: 05/12/17 08:45 Dose: 10 mg Admin: 05/12/17 00:54 Dose: 10 mg Admin: 05/11/17 18:35 Dose: 10 mg Admin: 05/11/17 09:16 Dose: 10 mg Admin: 05/11/17 01:44 Dose: 10 mg Admin: 05/10/17 18:14 Dose: 10 mg Admin: 05/10/17 10:39 Dose: 10 mg Ondansetron HCl (Zofran Odt) 4 mg PO Q4H PRN PRN Reason: nausea, able to take PO Last Admin: 05/04/17 04:20 Dose: 4 mg Admin: 05/03/17 04:46 Dose: 4 mg Sodium Chloride (Saline Flush) 10 ml FLUSH ASDIRECTED PRN PRN Reason: flush med Last Admin: 05/13/17 01:03 Dose: 10 ml Admin: 05/12/17 18:16 Dose: 10 ml Admin: 05/12/17 08:55 Dose: 10 ml Admin: 05/12/17 08:15 Dose: 10 ml - Assessment Assessment (Free Text/Narrative):: ready for discharge
--- NOTE | 2017-05-13 08:55 | PCM.DCSUM1 ---
Discharge Summary - Hospital Course Free Text/Narrative:: Pt admitted with a complaint of abd pain and what appeared to be CT findings c/ w IBD. Was treated conservatively for several days for what appeared to be ileus vs partial sbo. Due to lack fo progress as well as a worsening of her clinic exam, was taken to the OR and underwent an ex lap with lysis of a single band. Post operative course was unreamarkable. She has a return of bowel function and was started on a clear liquid diet. This was slowly advanced. On day of discharge she is tolerating regular diet and demonstrating good pain control. - Discharge Data Discharge Date: 05/13/17 Discharge Disposition: Home, Self-Care 01 Condition: Good - Discharge Diagnosis/Problem(s) (1) Small bowel obstruction due to adhesions SNOMED Code(s): 076294565 ICD Code: K56.50 - INTESTNL ADHESIONS, UNSP TO PARTIAL VERSUS COMPLETE OBST Status: Resolved Current Visit: Yes Problem Details: single band partial obstruction - Patient Summary/Data Operative Procedure(s) Performed: ex lap with lysis of adhesion Complications: none Consults: Consultations 05/02/17 17:08 Consult to Physician [CONS] Routine Consulting Provider: Thomas Gracia Call Completed to Consulting Physician: Yes Reason for Consult: abdominal pain Recommended Follow-up Testing/Procedures: none - Patient Instructions Diet: Usual Diet as Tolerated Activity: As Tolerated, No Lifting Over 25 Pounds, No Strenuous Activities Driving: Do Not Drive (for 7 days ) Showering/Bathing: May Shower, No Tub Bathing/Swimming Wound/Incision, Other: may get the incision wet in shower. pat dry. Notify Provider of: Fever, Swelling and Redness - Discharge Plan Prescriptions/Med Rec: Acetaminophen/HYDROcodone [Bunn 325-5 MG] 1 tab PO Q4H PRN #20 tablet PRN Reason: Pain Home Medications: Home Meds Calcium Carbonate/Vitamin D3 [Calcium 600 + Vit D 400 Softgl] 1 each PO BID [History] Cholecalciferol (Vitamin D3) [Vitamin D3] 1,000 unit PO DAILY 07/05/16 [History] Oxybutynin Chloride [Ditropan Xl] 10 mg PO QPM 07/05/16 [History] Lisinopril/Hydrochlorothiazide [Lisinopril-Hctz 20-25 mg Tab] 1 tab PO DAILY [History] Cyanocobalamin (Vitamin B-12) [Vitamin B-12] 500 mcg PO DAILY 05/03/17 [History] Multivitamin [Multiple Vitamins] 1 tab PO DAILY 05/03/17 [History] Acetaminophen/HYDROcodone [Bunn 325-5 MG] 1 tab PO Q4H PRN #20 tablet 05/13/17 [Rx] Patient Handouts: Small Bowel Obstruction, [id number], Abdominal Pain, Adult , [id number], Nasogastric Tube Insertion, Adult, Fentanyl injection, Venous Thromboembolism, Fall Prevention in Hospitals, Adult Forms: ED Department Discharge, Take Home DC Nutrition Plan Referrals: Ollie Baig MD [Primary Care Provider] - - Discharge Summary/Plan Comment DC Time >30 min.: No - Patient Data Vitals - Most Recent: Last Vital Signs Temp 36.6 C 05/13/17 07:45 Pulse 82 05/13/17 07:45 Resp 18 05/13/17 07:45 BP 130/79 05/13/17 07:45 Pulse Ox 94 L 05/13/17 07:45 Weight - Most Recent: 70.76 kg I&O - Last 24 hours: Intake & Output 05/12/17 05/13/17 05/13/17 22:59 06:59 14:59 Intake Total 12 Balance 12 Med Orders - Current: Current Medications Hydrocodone Bitart/Acetaminophen (Bunn 325-5 Mg) 1 tab PO Q4H PRN PRN Reason: Pain Last Admin: 05/13/17 01:09 Dose: 1 tab Lisinopril/HCTZ (Lisinopril-Hctz 20-25 Mg) 1 tab PO DAILY YAZ Last Admin: 05/12/17 09:06 Dose: 1 tab Lorazepam (Ativan) 1 mg IVPUSH DAILY PRN PRN Reason: Anxiety Last Admin: 05/12/17 00:50 Dose: 1 mg Metoclopramide HCl (Reglan) 10 mg IV Q8H YAZ Last Admin: 05/13/17 01:03 Dose: 10 mg Ondansetron HCl (Zofran Odt) 4 mg PO Q4H PRN PRN Reason: nausea, able to take PO Last Admin: 05/04/17 04:20 Dose: 4 mg Sodium Chloride (Saline Flush) 10 ml FLUSH ASDIRECTED PRN PRN Reason: flush med Last Admin: 05/13/17 01:03 Dose: 10 ml Discontinued Medications Acetaminophen (Tylenol) 650 mg RECTAL Q4H PRN PRN Reason: Mild pain/fever Acetaminophen (Tylenol) 650 mg PO Q4H PRN PRN Reason: Abdominal Pain Bisacodyl (Dulcolax) 10 mg RECTAL ONETIME ONE Stop: 05/04/17 09:41 Last Admin: 05/04/17 10:23 Dose: 10 mg Bisacodyl (Dulcolax) 10 mg RECTAL ONETIME ONE Stop: 05/11/17 08:54 Last Admin: 05/11/17 09:53 Dose: 10 mg Cefazolin Sodium (Ancef) 1 gm IV ONETIME ONE Stop: 05/06/17 11:46 Last Admin: 05/06/17 11:51 Dose: 1 gm Diatrizoate Meglum/Diatrizoate Sod (Gastrografin 37%) 30 ml PO . DIRECTED [facility] Last Admin: 05/02/17 11:39 Dose: 30 ml Famotidine (Pepcid) 20 mg PO BID [facility] Last Admin: 05/04/17 19:45 Dose: Not Given Fentanyl (Sublimaze) 50 mcg IVPUSH Q30M PRN PRN Reason: Abdominal Pain Last Admin: 05/02/17 18:51 Dose: 50 mcg Fentanyl (Sublimaze) 100 mcg IVPUSH Q1H PRN PRN Reason: Abdominal Pain Last Admin: 05/07/17 04:57 Dose: 100 mcg Fentanyl (Sublimaze) 100 mcg IV .STK-MED ONE Stop: 05/06/17 12:01 Hydromorphone HCl (Dilaudid) 1 mg IVPUSH Q4H PRN PRN Reason: Pain Last Admin: 05/11/17 16:08 Dose: 1 mg Hydromorphone HCl (Dilaudid) 1 mg IVPUSH ONETIME ONE Stop: 05/12/17 08:48 Last Admin: 05/12/17 08:54 Dose: 1 mg Hydroxyzine HCl (Vistaril) 50 mg IM .STK-MED ONE Stop: 05/06/17 12:01 Sodium Chloride (Normal Saline) 1,000 mls @ 999 mls/hr IV ASDIRECTED YAZ Last Admin: 05/02/17 09:45 Dose: 999 mls/hr Sodium Chloride (Normal Saline) 1,000 mls @ 100 mls/hr IV ASDIRECTED YAZ Stop: 05/03/17 17:16 Last Admin: 05/03/17 15:34 Dose: 100 mls/hr Sodium Chloride (Normal Saline) 1,000 mls @ 999 mls/hr IV ASDIRECTED YAZ Sodium Chloride (Normal Saline) 1,000 mls @ 999 mls/hr IV ASDIRECTED ONE Stop: 05/02/17 21:45 Last Admin: 05/02/17 20:50 Dose: 999 mls/hr Sodium Chloride (Normal Saline) 1,000 mls @ 999 mls/hr IV .BOLUS ONE Stop: 05/03/17 23:27 Last Admin: 05/03/17 22:47 Dose: 999 mls/hr Sodium Chloride (Normal Saline) 1,000 mls @ 125 mls/hr IV ASDIRECTED YAZ Last Admin: 05/06/17 08:32 Dose: 125 mls/hr Lactated Ringer's (Ringers, Lactated) 1,000 mls @ 999 mls/hr IV ASDIRECTED YAZ Last Admin: 05/04/17 11:23 Dose: 999 mls/hr Sodium Chloride (Normal Saline) 1,000 mls @ 999 mls/hr IV ASDIRECTED YAZ Stop: 05/05/17 14:31 Last Admin: 05/04/17 14:22 Dose: 999 mls/hr Sodium Chloride (Normal Saline) 1,000 mls @ 500 mls/hr IV ASDIRECTED YAZ Sodium Chloride (Normal Saline) 1,000 mls @ 500 mls/hr IV ASDIRECTED YAZ Last Admin: 05/05/17 09:25 Dose: 500 mls/hr Lactated Ringer's (Ringers, Lactated) 1,000 mls @ 125 mls/hr IV ASDIRECTED YAZ Last Admin: 05/09/17 05:42 Dose: 125 mls/hr Lactated Ringer's (Ringers, Lactated) 1,000 mls @ as directed IV .STK-MED ONE Stop: 05/06/17 12:01 Potassium Chloride/Dextrose/Sod Cl (D5 1/2 Ns W/ 20 Meq/L Kcl) 1,000 mls @ 75 mls/hr IV Q8H YAZ Stop: 05/12/17 14:25 Last Admin: 05/12/17 01:38 Dose: 75 mls/hr Potassium Chloride 20 meq/ (Premix) 100 mls @ 50 mls/hr IV ONETIME ONE Stop: 05/09/17 17:10 Last Admin: 05/09/17 15:25 Dose: 50 mls/hr Potassium Chloride/Dextrose/Sod Cl (D5 1/2 Ns W/ 20 Meq/L Kcl) 1,000 mls @ 75 mls/hr IV Q13H YAZ Iopamidol (Isovue-370 (76%)) 75 ml IV ONETIME ONE Stop: 05/02/17 11:31 Last Admin: 05/02/17 11:39 Dose: 73 ml Ketorolac Tromethamine (Toradol) 30 mg IVPUSH ONETIME ONE Stop: 05/02/17 09:27 Last Admin: 05/02/17 09:48 Dose: 30 mg Ketorolac Tromethamine (Toradol) 30 mg IVPUSH Q6H PRN PRN Reason: Pain Stop: 05/07/17 20:05 Last Admin: 05/04/17 05:41 Dose: 30 mg Ketorolac Tromethamine (Toradol) 30 mg IVPUSH .STK-MED ONE Stop: 05/06/17 12:01 Midazolam HCl (Versed 1 Mg/Ml) 2 mg IV .STK-MED ONE Stop: 05/06/17 12:01 Morphine Sulfate (Morphine) 4 mg IVPUSH ONETIME ONE Stop: 05/02/17 09:29 Last Admin: 05/02/17 09:48 Dose: 4 mg Morphine Sulfate (Morphine) 2 mg IVPUSH ONETIME ONE Stop: 05/02/17 10:50 Last Admin: 05/02/17 10:54 Dose: 2 mg Morphine Sulfate (Morphine) 4 mg IVPUSH ONETIME ONE Stop: 05/02/17 12:16 Last Admin: 05/02/17 12:30 Dose: 4 mg Morphine Sulfate (Morphine) 2 mg IVPUSH Q3M PRN PRN Reason: Abdominal Pain Morphine Sulfate (Morphine) 10 mg IVPUSH .STK-MED ONE Stop: 05/06/17 12:01 Ondansetron HCl (Zofran) 4 mg IVPUSH ONETIME ONE Stop: 05/02/17 09:29 Last Admin: 05/02/17 09:47 Dose: 4 mg Ondansetron HCl (Zofran) 4 mg IVPUSH .STK-MED ONE Stop: 05/06/17 12:01 Pantoprazole Sodium (Protonix Iv) 40 mg IVPUSH DAILY [facility] Last Admin: 05/11/17 09:14 Dose: 40 mg Propofol (Diprivan 20 Ml) 180 mg IV .STK-MED ONE Stop: 05/06/17 12:01 Ranitidine HCl (Zantac) 150 mg PO BID [facility] Last Admin: 05/03/17 10:02 Dose: 150 mg Rocuronium [place] (Zemuron) 35 mg IV .STK-MED ONE Stop: 05/06/17 12:01 Sodium Chloride (Saline Flush) 10 ml FLUSH ASDIRECTED PRN PRN Reason: Keep Vein Open Last Admin: 05/06/17 11:58 Dose: 10 ml Succinylcholine Chloride (Quelicin) 100 mg IV .STK-MED ONE Stop: 05/06/17 12:01 Temazepam (Restoril) 7.5 mg PO BEDTIME PRN PRN Reason: Sleep
[2017-05-13] MEDS: Hydrochlorothiazide/Lisinopril 25-20 MG Tab PO SCH (08:59)
== END 2017-05-13 10:15 | disposition home or self-care (01) | DRG 336 ==
LOC: FB.ED 09:04 → FB.MS 12:45
PROVIDERS: ADMIT Family Medicine; ATTEND Family Medicine
PROC: 0DN80ZZ Release Small Intestine, Open Approach (ICD-10-PCS; principal; 2017-05-06)
DX: R10.9 Unspecified abdominal pain (principal); K59.39 Other megacolon; K56.51 Intestinal adhesions [bands], with partial obstruction; R18.8 Other ascites; I10 Essential (primary) hypertension; N32.81 Overactive bladder; F41.9 Anxiety disorder, unspecified; K21.9 Gastro-esophageal reflux disease without esophagitis; J98.01 Acute bronchospasm; N31.9 Neuromuscular dysfunction of bladder, unspecified; Z87.891 Personal history of nicotine dependence; Z88.5 Allergy status to narcotic agent; Z87.820 Personal history of traumatic brain injury; Z79.899 Other long term (current) drug therapy; Z96.642 Presence of left artificial hip joint; Z93.1 Gastrostomy status
CPT/HCPCS: 36415; 74177; 80053; 82150; 83615; 85025; 85379; 86140; 96374; 96375; 96376; 99284; 99285; A9270; J1885; J2270 ×3; J2405; J7040; Q9967; 51702; 74021; 80048; 81001; 82270; 82550; 83630; 85651; 87015; 87045; 87046; 87899; 94150; C9113; C9399; J0330; J0690; J1170; J2060; J2250; J2704; J2765; J3010; J3410; J3480; J7050; J7120

== ENCOUNTER 2018-09-16 20:13 | Emergency (ER) | payer OTHER, MEDICARE ==
[2018-09-16] MEDS ORDERED: Ketorolac 60 MG/2 ML SDV IM ONE (20:31)
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
[2018-09-16] MEDS ORDERED: Diphtheria,Pertussis(Acell),Tetanus Vaccine 0.5 ML SDV IM ONE (20:59)
[2018-09-17 00:09] VITALS: BP 169/78; PULSE 82
== END 2018-09-16 21:45 | disposition home or self-care (01) ==
LOC: FB.ED 20:13
DX: S13.9XXA Sprain of joints and ligaments of unspecified parts of neck, initial encounter (principal); S80.212A Abrasion, left knee, initial encounter; S80.211A Abrasion, right knee, initial encounter; M25.512 Pain in left shoulder; I10 Essential (primary) hypertension; Z88.6 Allergy status to analgesic agent; Z23 Encounter for immunization; Z79.899 Other long term (current) drug therapy; V86.69XA Passenger of other special all-terrain or other off-road motor vehicle injured in nontraffic accident, initial encounter
CPT/HCPCS: 70450; 72125; 73030; 90471; 90715; 96372; 99283; J1885

== ENCOUNTER 2019-03-04 14:01 | Emergency (ER) | payer MEDICARE, OTHER ==
[2019-03-04] MEDS ORDERED: Sodium Chloride 0.9% 10 ML Syringe FLUSH PRN (14:20)
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
[2019-03-04] MEDS ORDERED: Iopamidol 755 Mg/ML 100 ML Bottle IV ONE ×2 (14:58→15:22)
[2019-03-04] MEDS ORDERED: Sodium Phosphate,Monobasic/Sodium Phosphate,Dibasic Enema 133 ML Bottle RECTAL ONE (16:14)
[2019-03-04 19:33] VITALS: BP 119/95; PULSE 90
== END 2019-03-04 17:30 | disposition home or self-care (01) ==
LOC: FB.ED 14:01
DX: K59.00 Constipation, unspecified (principal); I10 Essential (primary) hypertension; J44.9 Chronic obstructive pulmonary disease, unspecified; Z79.899 Other long term (current) drug therapy; Z87.891 Personal history of nicotine dependence; Z88.5 Allergy status to narcotic agent
CPT/HCPCS: 36415; 74177; 80053; 81001; 85025; 99282; 99284-25; Q9967

== ENCOUNTER 2019-04-18 17:12 | Emergency (ER) | payer MEDICARE, OTHER ==
[2019-04-18] MEDS ORDERED: Lidocaine 1% 20 ML MDV INFILT ONE (17:13)
[2019-04-18] MEDS ORDERED: Sodium Chloride 0.9% 10 ML Syringe FLUSH PRN (17:34)
[2019-04-18] MEDS ORDERED: Thiamine 100 MG in Sodium Chloride 0.9% 100 ML IV ONE (17:36)
[2019-04-18 17:38] VITALS: PULSE 88
[2019-04-18] MEDS ORDERED: Sodium Chloride 0.9% 1,000 ML IV SCH (17:45)
--- NOTE | 2019-04-18 18:33 | CT ---
INDICATION: Fall/head injury/denies headache. CT HEAD WITHOUT CONTRAST: Spiral 3.75 mm axial sections were obtained through the brain without contrast with sagittal and coronal reconstructions 04/18/2019 and compared with 09/16/2018. Total exam DLP was 1296.53 mGy/cm. The mastoid air cells were well aerated. Paranasal sinuses showed some minimal thickening of the lining of the right maxillary antrum anteriorly and a right anterior ethmoidal air cell, new compared with the previous study. No specific cranial abnormality was identified - no cranial fracture site was seen. Calcifications are noted in the internal carotid arteries. The orbits appear to be intact. No shift of midline structures was identified. The ventricles are again noted to be prominent compatible with central atrophy. Cortical sulci were prominent compatible with cortical atrophy. No definite abnormal areas of density were identified - no bleeding site or hematoma was seen - no definite intracranial abnormality of acute nature was seen. Little interval change is noted compared with 09/16/2018 examination. IMPRESSION: 1. No acute intracranial abnormality. 2. Central and cortical atrophy. 3. Cerebrovascular disease with calcification in the internal carotid arteries. 4. Minimal thickening of linings noted in right maxillary antrum and an anterior right ethmoid air cells not present on previous study but of questionable significance. Report was called to Dr. Lezama at 1817 hours. [facility]
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
[2019-04-18 19:31] VITALS: BP 138/69
--- NOTE | 2019-04-19 16:22 | CR ---
INDICATION: Syncope. CHEST, ONE VIEW: An AP upright portable view of the chest was obtained and compared with 08/21/08. The left costophrenic angle again appears indistinctly visualized - is unchanged from the previous study likely due to fibrosis in that area. An active infiltrate or effusion was not suggested. The heart is normal in size and shape. The aorta is tortuous with calcification in the arch. Minimal dextroconvex scoliosis is suggested in the low middle thoracic spine. IMPRESSION: Stable chest. No definite acute process. MTDD
== END 2019-04-18 19:25 | disposition home or self-care (01) ==
LOC: FB.ED 17:12
DX: S31.821A Laceration without foreign body of left buttock, initial encounter (principal); F10.129 Alcohol abuse with intoxication, unspecified; Y90.7 Blood alcohol level of 200-239 mg/100 ml; I10 Essential (primary) hypertension; J44.9 Chronic obstructive pulmonary disease, unspecified; K21.9 Gastro-esophageal reflux disease without esophagitis; E66.9 Obesity, unspecified; G62.9 Polyneuropathy, unspecified; Z87.891 Personal history of nicotine dependence; Z88.5 Allergy status to narcotic agent
CPT/HCPCS: 12001; 12002; 36415; 70450; 71045; 80053; 80307; 82150; 82550; 83690; 84484; 85025; 99283; 99284-25; J2001

== ENCOUNTER 2021-07-11 19:13 | Emergency (ER) | payer MEDICARE, OTHER ==
[2021-07-11] MEDS ORDERED: Azithromycin 250 MG Tab PO ONE (19:14)
[2021-07-11] MEDS ORDERED: Lactated Ringers 1,000 ML IV ONE (20:14)
[2021-07-12 05:32] VITALS: BP 120/68; PULSE 98
== END 2021-07-11 21:55 | disposition home or self-care (01) ==
LOC: FB.ED 19:13
DX: J44.1 Chronic obstructive pulmonary disease with (acute) exacerbation (principal); I12.9 Hypertensive chronic kidney disease with stage 1 through stage 4 chronic kidney disease, or unspecified chronic kidney disease; N18.4 Chronic kidney disease, stage 4 (severe); J02.9 Acute pharyngitis, unspecified; E66.9 Obesity, unspecified; Z68.30 Body mass index [BMI] 30.0-30.9, adult; Z87.891 Personal history of nicotine dependence; Z88.5 Allergy status to narcotic agent; Z79.899 Other long term (current) drug therapy; Z20.822 Contact with and (suspected) exposure to COVID-19
CPT/HCPCS: 36415; 71046; 80053; 83880; 84484; 85025; 93005; 99285-25; A9270-GY; U0002

== ENCOUNTER 2021-07-17 21:31 | Emergency (ER) | payer MEDICARE, OTHER ==
[2021-07-17] MEDS ORDERED: Acetaminophen/HYDROcodone 325-7.5 MG Tab PO STA (23:13)
[2021-07-18 00:54] VITALS: BP 101/69; PULSE 106
== END 2021-07-18 00:05 | disposition home or self-care (01) ==
LOC: FB.ED 21:31
DX: R07.81 Pleurodynia (principal); S30.1XXA Contusion of abdominal wall, initial encounter; J44.9 Chronic obstructive pulmonary disease, unspecified; I10 Essential (primary) hypertension; K21.9 Gastro-esophageal reflux disease without esophagitis; E66.9 Obesity, unspecified; Z68.41 Body mass index [BMI] 40.0-44.9, adult; Z88.5 Allergy status to narcotic agent; Z79.899 Other long term (current) drug therapy; W06.XXXA Fall from bed, initial encounter
CPT/HCPCS: 71101-RT; 99284-25; A9270-GY

== ENCOUNTER 2021-10-08 16:19 | Inpatient (IN) | payer MEDICARE, OTHER ==
[2021-10-08] MEDS ORDERED: Piperacillin/Tazobactam 2.25 GM in Sodium Chloride 0.9% 50 ML IV SCH (17:30)
[2021-10-08] MEDS ORDERED: Piperacillin/Tazobactam 2.25 GM in Sodium Chloride 0.9% 50 ML IV ONE (17:30)
[2021-10-08] MEDS ORDERED: Morphine 4 MG/ML VIAL IVPUSH PRN (17:36)
[2021-10-08] MEDS ORDERED: Ondansetron 4 MG/2 ML SDV IVPUSH PRN (17:36)
[2021-10-08] MEDS ORDERED: Acetaminophen 325 MG Tab PO PRN (17:37)
[2021-10-08 17:55] LABS: ESTIMATED GFR 55 mL/min (>60)
[2021-10-08] MEDS ORDERED: VANCOmycin 2 GM/400 ML 2 GM in Premix Bag 1 BAG IV ONE ×6 (18:00→20:00)
[2021-10-08] MEDS: Acetaminophen/HYDROcodone 325-5 MG Tab PO PRN (18:15)
[2021-10-08] MEDS ORDERED: Iopamidol 755 MG/ML 150 ML Bottle IV ONE (18:19)
[2021-10-08] MEDS: Sodium Chloride 0.9% 10 ML Syringe FLUSH PRN (18:20)
[2021-10-08] MEDS: Pantoprazole 40 MG Vial IVPUSH SCH (18:39)
[2021-10-08] MEDS ORDERED: Sodium Chloride 0.9% 1,000 ML IV SCH (18:45)
[2021-10-08] MEDS ORDERED: Enoxaparin 40 MG/0.4 ML Syringe SUBCUT SCH (20:00)
[2021-10-09] MEDS: Piperacillin/Tazobactam 4.5 GM in Sodium Chloride 0.9% 100 ML IV SCH ×4 (00:56→17:31)
[2021-10-09 06:53] LABS: ESTIMATED GFR 62 mL/min (>60)
[2021-10-09] MEDS ORDERED: Iopamidol 755 MG/ML 150 ML Bottle IV ONE (07:38)
[2021-10-09] MEDS: Sodium Chloride 0.9% 10 ML Syringe FLUSH PRN ×2 (07:45→12:42)
[2021-10-09] MEDS: VANCOmycin 1.5 GM/300 ML 300 ML IV SCH (09:51)
[2021-10-09] MEDS: Oxybutynin 5 MG Tab.ER PO SCH (10:10)
[2021-10-09] MEDS: Torsemide 20 MG Tab PO SCH (10:10)
[2021-10-09] MEDS: DULoxetine 30 MG Cap PO SCH (10:10)
[2021-10-09] MEDS: Cyclobenzaprine 10 MG Tab PO SCH ×2 (10:10→20:05)
[2021-10-09] MEDS: Pantoprazole 40 MG Vial IVPUSH SCH (17:27)
[2021-10-10] MEDS: Piperacillin/Tazobactam 4.5 GM in Sodium Chloride 0.9% 100 ML IV SCH ×5 (00:16→23:59)
[2021-10-10] MEDS: Acetaminophen/HYDROcodone 325-5 MG Tab PO PRN ×2 (00:26→17:27)
[2021-10-10] MEDS: Sodium Chloride 0.9% 10 ML Syringe FLUSH PRN ×3 (01:16→10:25)
[2021-10-10 06:54] LABS: ESTIMATED GFR 55 mL/min (>60)
[2021-10-10] MEDS: Torsemide 20 MG Tab PO SCH (08:31)
[2021-10-10] MEDS: DULoxetine 30 MG Cap PO SCH (08:31)
[2021-10-10] MEDS: Cyclobenzaprine 10 MG Tab PO SCH ×2 (08:32→20:56)
[2021-10-10] MEDS: Oxybutynin 5 MG Tab.ER PO SCH (08:33)
[2021-10-10] MEDS: Allopurinol 100 MG Tab PO SCH (08:33)
[2021-10-10] MEDS: VANCOmycin 1.5 GM/300 ML 300 ML IV SCH (10:24)
[2021-10-10] MEDS: Pantoprazole 40 MG Vial IVPUSH SCH (17:28)
[2021-10-11] MEDS: Sodium Chloride 0.9% 10 ML Syringe FLUSH PRN ×2 (00:30→07:30)
[2021-10-11] MEDS: Acetaminophen/HYDROcodone 325-5 MG Tab PO PRN (01:09)
[2021-10-11] MEDS: Piperacillin/Tazobactam 4.5 GM in Sodium Chloride 0.9% 100 ML IV SCH ×4 (06:16→23:59)
[2021-10-11] MEDS: DULoxetine 30 MG Cap PO SCH (09:16)
[2021-10-11] MEDS: Oxybutynin 5 MG Tab.ER PO SCH (09:17)
[2021-10-11] MEDS: Torsemide 20 MG Tab PO SCH (09:17)
[2021-10-11] MEDS: Cyclobenzaprine 10 MG Tab PO SCH ×2 (09:17→20:12)
[2021-10-11] MEDS: Allopurinol 100 MG Tab PO SCH (09:18)
[2021-10-11] MEDS: VANCOmycin 1.5 GM/300 ML 300 ML IV SCH (10:09)
[2021-10-11] MEDS: Pantoprazole 40 MG Vial IVPUSH SCH (18:08)
[2021-10-12] MEDS: Sodium Chloride 0.9% 10 ML Syringe FLUSH PRN ×2 (00:30→06:50)
[2021-10-12] MEDS: Piperacillin/Tazobactam 4.5 GM in Sodium Chloride 0.9% 100 ML IV SCH ×3 (06:13→19:13)
[2021-10-12 07:25] LABS: ESTIMATED GFR 50 mL/min (>60)
[2021-10-12] MEDS: Cyclobenzaprine 10 MG Tab PO SCH ×2 (09:27→20:33)
[2021-10-12] MEDS: Torsemide 20 MG Tab PO SCH (09:28)
[2021-10-12] MEDS: DULoxetine 30 MG Cap PO SCH (09:28)
[2021-10-12] MEDS: Oxybutynin 5 MG Tab.ER PO SCH (09:28)
[2021-10-12] MEDS: Allopurinol 100 MG Tab PO SCH (09:28)
[2021-10-12] MEDS: VANCOmycin 1.5 GM/300 ML 300 ML IV SCH (10:32)
[2021-10-12] MEDS: Pantoprazole 40 MG Vial IVPUSH SCH (19:23)
[2021-10-13] MEDS: Piperacillin/Tazobactam 4.5 GM in Sodium Chloride 0.9% 100 ML IV SCH ×4 (00:18→18:31)
[2021-10-13] MEDS: Sodium Chloride 0.9% 10 ML Syringe FLUSH PRN ×2 (01:00→05:55)
[2021-10-13] MEDS: DULoxetine 30 MG Cap PO SCH (08:40)
[2021-10-13] MEDS: Torsemide 20 MG Tab PO SCH (08:40)
[2021-10-13] MEDS: Cyclobenzaprine 10 MG Tab PO SCH ×2 (08:41→21:22)
[2021-10-13] MEDS: Oxybutynin 5 MG Tab.ER PO SCH (08:41)
[2021-10-13] MEDS: Allopurinol 100 MG Tab PO SCH (08:41)
[2021-10-13] MEDS ORDERED: VANCOmycin 1.25 GM/250 ML 250 ML IV SCH (13:00)
[2021-10-13] MEDS: Pantoprazole 40 MG Vial IVPUSH SCH (18:28)
[2021-10-14] MEDS: Piperacillin/Tazobactam 4.5 GM in Sodium Chloride 0.9% 100 ML IV SCH ×2 (00:26→05:58)
[2021-10-14] MEDS: Sodium Chloride 0.9% 10 ML Syringe FLUSH PRN ×2 (00:29→05:59)
[2021-10-14 07:27] LABS: ESTIMATED GFR 45 mL/min (>60)
[2021-10-14] MEDS: DULoxetine 30 MG Cap PO SCH (08:48)
[2021-10-14] MEDS: Torsemide 20 MG Tab PO SCH (08:48)
[2021-10-14] MEDS: Cyclobenzaprine 10 MG Tab PO SCH (08:49)
[2021-10-14] MEDS: Allopurinol 100 MG Tab PO SCH (08:49)
[2021-10-14] MEDS: Oxybutynin 5 MG Tab.ER PO SCH (08:49)
[2021-10-14 11:45] VITALS: BP 138/86; PULSE 86
== END 2021-10-14 10:38 | disposition swing bed (61) | DRG 603 ==
LOC: UNDOADMIN 16:41 → FB.MS 16:41
PROVIDERS: ADMIT Student in an Organized Health Care Education/Training Program; ATTEND Student in an Organized Health Care Education/Training Program
DX: L02.211 Cutaneous abscess of abdominal wall (principal); Z68.41 Body mass index [BMI] 40.0-44.9, adult; M54.9 Dorsalgia, unspecified; G89.29 Other chronic pain; F32.A Depression, unspecified; J43.9 Emphysema, unspecified; E78.00 Pure hypercholesterolemia, unspecified; E66.01 Morbid (severe) obesity due to excess calories; I12.9 Hypertensive chronic kidney disease with stage 1 through stage 4 chronic kidney disease, or unspecified chronic kidney disease; K21.9 Gastro-esophageal reflux disease without esophagitis; G62.9 Polyneuropathy, unspecified; Z96.643 Presence of artificial hip joint, bilateral; E21.3 Hyperparathyroidism, unspecified; D51.0 Vitamin B12 deficiency anemia due to intrinsic factor deficiency; N18.9 Chronic kidney disease, unspecified; F10.11 Alcohol abuse, in remission; N32.81 Overactive bladder; N93.9 Abnormal uterine and vaginal bleeding, unspecified; Z79.899 Other long term (current) drug therapy
CPT/HCPCS: 36415; 74177; 76856; 80048; 80053; 80202; 81001; 83605; 85025; 86140; 87040; 87070; 87205; 94150; 97116-GP; 97161-GP; 97165-GO; 97530-GO; 97530-GP; 97535-GO; A9270-GY; C9113; J1650; J2543; J3370; J3490; J7030; Q9967

== ENCOUNTER 2021-10-14 10:41 | Inpatient (IN) | payer MEDICARE, OTHER ==
[2021-10-14] MEDS ORDERED: Torsemide 20 MG Tab PO PRN (10:52)
[2021-10-14] MEDS: Sulfamethoxazole/Trimethoprim 800-160 MG Tab PO SCH ×2 (12:35→20:48)
[2021-10-14] MEDS: Cyclobenzaprine 10 MG Tab PO SCH (20:49)
[2021-10-15] MEDS: Pantoprazole 40 MG Tab.CR PO SCH (05:02)
[2021-10-15] MEDS: Cyclobenzaprine 10 MG Tab PO SCH ×2 (09:03→20:15)
[2021-10-15] MEDS: DULoxetine 30 MG Cap PO SCH (09:03)
[2021-10-15] MEDS: Oxybutynin 5 MG Tab.ER PO SCH (09:08)
[2021-10-15] MEDS: Lisinopril 20 MG Tab PO SCH (09:08)
[2021-10-15] MEDS: Allopurinol 100 MG Tab PO SCH (09:12)
[2021-10-15] MEDS: Sulfamethoxazole/Trimethoprim 800-160 MG Tab PO SCH ×2 (09:14→20:15)
[2021-10-16] MEDS: Pantoprazole 40 MG Tab.CR PO SCH (05:08)
[2021-10-16] MEDS ORDERED: Magnesium Hydroxide 400 MG/5 ML Susp 30 ML Cup PO PRN (06:03)
[2021-10-16] MEDS: DULoxetine 30 MG Cap PO SCH (09:15)
[2021-10-16] MEDS: Lisinopril 20 MG Tab PO SCH (09:15)
[2021-10-16] MEDS: Sulfamethoxazole/Trimethoprim 800-160 MG Tab PO SCH ×2 (09:16→20:54)
[2021-10-16] MEDS: Oxybutynin 5 MG Tab.ER PO SCH (09:16)
[2021-10-16] MEDS: Cyclobenzaprine 10 MG Tab PO SCH ×2 (09:16→20:54)
[2021-10-16] MEDS: Allopurinol 100 MG Tab PO SCH (09:17)
[2021-10-17] MEDS: Pantoprazole 40 MG Tab.CR PO SCH (05:41)
[2021-10-17] MEDS: DULoxetine 30 MG Cap PO SCH (09:09)
[2021-10-17] MEDS: Cyclobenzaprine 10 MG Tab PO SCH ×2 (09:09→20:53)
[2021-10-17] MEDS: Oxybutynin 5 MG Tab.ER PO SCH (09:10)
[2021-10-17] MEDS: Allopurinol 100 MG Tab PO SCH (09:10)
[2021-10-17] MEDS: Lisinopril 20 MG Tab PO SCH (09:11)
[2021-10-17] MEDS: Sulfamethoxazole/Trimethoprim 800-160 MG Tab PO SCH ×2 (09:12→20:53)
[2021-10-18] MEDS: Pantoprazole 40 MG Tab.CR PO SCH (05:39)
[2021-10-18] MEDS: DULoxetine 30 MG Cap PO SCH (08:45)
[2021-10-18] MEDS: Cyclobenzaprine 10 MG Tab PO SCH ×3 (08:46→20:01)
[2021-10-18] MEDS: Lisinopril 20 MG Tab PO SCH (08:46)
[2021-10-18] MEDS: Oxybutynin 5 MG Tab.ER PO SCH (08:46)
[2021-10-18] MEDS: Allopurinol 100 MG Tab PO SCH (08:47)
[2021-10-18] MEDS: Sulfamethoxazole/Trimethoprim 800-160 MG Tab PO SCH ×2 (08:47→20:00)
[2021-10-19] MEDS ORDERED: Acetaminophen 325 MG Tab PO PRN (01:45)
[2021-10-19] MEDS ORDERED: Melatonin 3 MG Tab PO PRN (01:58)
[2021-10-19] MEDS: Pantoprazole 40 MG Tab.CR PO SCH (06:00)
[2021-10-19] MEDS: Cyclobenzaprine 10 MG Tab PO SCH ×2 (08:21→20:58)
[2021-10-19] MEDS: Allopurinol 100 MG Tab PO SCH (08:21)
[2021-10-19] MEDS: DULoxetine 30 MG Cap PO SCH (08:22)
[2021-10-19] MEDS: Sulfamethoxazole/Trimethoprim 800-160 MG Tab PO SCH ×2 (08:22→20:58)
[2021-10-19] MEDS: Oxybutynin 5 MG Tab.ER PO SCH (08:22)
[2021-10-19] MEDS: Lisinopril 20 MG Tab PO SCH (08:23)
[2021-10-19] MEDS ORDERED: hydrOXYzine HCl 25 MG Tab PO PRN (10:14)
[2021-10-19] MEDS ORDERED: Hydrocortisone 1% Oint 28 GM Tube TOP PRN (10:15)
[2021-10-19] MEDS: Hydrocortisone 2.5% Crm 30 GM Tube TOP PRN ×2 (11:45→20:59)
[2021-10-20] MEDS: Pantoprazole 40 MG Tab.CR PO SCH (05:06)
[2021-10-20] MEDS: Cyclobenzaprine 10 MG Tab PO SCH ×2 (08:26→20:58)
[2021-10-20] MEDS: DULoxetine 30 MG Cap PO SCH (08:26)
[2021-10-20] MEDS: Lisinopril 20 MG Tab PO SCH (08:27)
[2021-10-20] MEDS: Oxybutynin 5 MG Tab.ER PO SCH (08:27)
[2021-10-20] MEDS: Allopurinol 100 MG Tab PO SCH (08:28)
[2021-10-20] MEDS: Sulfamethoxazole/Trimethoprim 800-160 MG Tab PO SCH (08:28)
[2021-10-20] MEDS: Hydrocortisone 2.5% Crm 30 GM Tube TOP PRN ×2 (08:41→20:57)
[2021-10-21 03:54] VITALS: PULSE 94
[2021-10-21] MEDS: Pantoprazole 40 MG Tab.CR PO SCH (05:31)
[2021-10-21] MEDS: Cyclobenzaprine 10 MG Tab PO SCH (08:23)
[2021-10-21] MEDS: DULoxetine 30 MG Cap PO SCH (08:23)
[2021-10-21] MEDS: Oxybutynin 5 MG Tab.ER PO SCH (08:24)
[2021-10-21] MEDS: Allopurinol 100 MG Tab PO SCH (08:24)
[2021-10-21] MEDS: Lisinopril 20 MG Tab PO SCH (08:24)
[2021-10-21 08:27] VITALS: BP 165/90
== END 2021-10-21 10:53 | disposition home health service (06) | DRG 948 ==
LOC: FB.MS 10:41
PROVIDERS: ADMIT Family Medicine; ATTEND Student in an Organized Health Care Education/Training Program
DX: R53.81 Other malaise (principal); L02.211 Cutaneous abscess of abdominal wall; Z68.41 Body mass index [BMI] 40.0-44.9, adult; R29.6 Repeated falls; M54.42 Lumbago with sciatica, left side; G89.29 Other chronic pain; I10 Essential (primary) hypertension; Z87.891 Personal history of nicotine dependence; Z51.5 Encounter for palliative care; E66.01 Morbid (severe) obesity due to excess calories; N93.9 Abnormal uterine and vaginal bleeding, unspecified; F32.9 Major depressive disorder, single episode, unspecified; E78.00 Pure hypercholesterolemia, unspecified; N18.32 Chronic kidney disease, stage 3b; E21.3 Hyperparathyroidism, unspecified; K21.9 Gastro-esophageal reflux disease without esophagitis; Z96.641 Presence of right artificial hip joint; G62.9 Polyneuropathy, unspecified; D51.0 Vitamin B12 deficiency anemia due to intrinsic factor deficiency
CPT/HCPCS: 97110-GP; 97116-GP; 97129-GO; 97530-GO; 97530-GP; 97535-GO; 99305; 99316; A9270-GY; U0002

== ENCOUNTER 2021-11-02 01:55 | Emergency (ER) | payer MEDICARE, OTHER ==
[2021-11-02] MEDS ORDERED: fentaNYL 100 MCG/2 ML SDV IVPUSH STA (02:20)
[2021-11-02] MEDS ORDERED: Piperacillin/Tazobactam 2.25 GM in Sodium Chloride 0.9% 50 ML IV SCH (03:15)
[2021-11-02 03:17] LABS: ESTIMATED GFR 41 mL/min (>60)
[2021-11-02] MEDS ORDERED: VANCOmycin 1 GM/200 ML 200 ML IV SCH (04:00)
[2021-11-02] MEDS ORDERED: Acetaminophen 500 MG Tab PO PRN (07:08)
[2021-11-02] MEDS ORDERED: Enoxaparin 150 MG/1 ML Syringe SUBCUT ONE (10:21)
[2021-11-02] MEDS ORDERED: Lidocaine 4% 1 each Patch TOP STA (10:36)
[2021-11-02 11:12] VITALS: BP 113/88; PULSE 98
== END 2021-11-02 11:45 | disposition home or self-care (01) ==
LOC: FB.ED 01:55
DX: S70.01XA Contusion of right hip, initial encounter (principal); R79.89 Other specified abnormal findings of blood chemistry; I10 Essential (primary) hypertension; J44.9 Chronic obstructive pulmonary disease, unspecified; K21.9 Gastro-esophageal reflux disease without esophagitis; E66.9 Obesity, unspecified; Z68.30 Body mass index [BMI] 30.0-30.9, adult; Z88.5 Allergy status to narcotic agent; Z88.8 Allergy status to other drugs, medicaments and biological substances; Z79.899 Other long term (current) drug therapy
CPT/HCPCS: 36415; 74176; 80053; 80307; 83605; 85025; 85379; 86140; 87040; 96365; 96367; 96372; 96375; 99285; J1650; J2543; J3010; J3370; J3490

== ENCOUNTER 2021-11-25 19:02 | Emergency (ER) | payer MEDICARE, OTHER ==
[2021-11-25 20:17] LABS: ESTIMATED GFR 41 mL/min (>60)
[2021-11-25 20:35] VITALS: BP 144/82
[2021-11-25] MEDS ORDERED: Albuterol/Ipratropium 3.0-0.5 MG/3 ML Neb Soln NEB ONE (20:51)
[2021-11-25] MEDS ORDERED: predniSONE 20 MG Tab PO ONE (22:01)
[2021-11-25] MEDS ORDERED: cefTRIAXone 1 GM Vial IM ONE (22:01)
[2021-11-25] MEDS ORDERED: Magnesium Oxide 400 MG Tab PO ONE (22:05)
[2021-11-26 00:38] VITALS: PULSE 106
== END 2021-11-25 22:35 | disposition home or self-care (01) ==
LOC: FB.ED 19:02
DX: J69.0 Pneumonitis due to inhalation of food and vomit (principal); J45.41 Moderate persistent asthma with (acute) exacerbation; N39.0 Urinary tract infection, site not specified; I10 Essential (primary) hypertension; E66.9 Obesity, unspecified; Z68.41 Body mass index [BMI] 40.0-44.9, adult; Z88.8 Allergy status to other drugs, medicaments and biological substances; Z88.5 Allergy status to narcotic agent; Z79.899 Other long term (current) drug therapy; Z87.891 Personal history of nicotine dependence; Z20.822 Contact with and (suspected) exposure to COVID-19
CPT/HCPCS: 36415; 71046; 80053; 81001; 83735; 83880; 84484; 85025; 86140; 87086; 87088; 87186; 93005; 94640; 96372; 99284; A9270; J0696; J7512; U0002; J7620

== ENCOUNTER 2021-12-17 15:29 | Observation (INO) | payer MEDICARE, OTHER ==
[2021-12-17 16:34] LABS: ESTIMATED GFR 33 mL/min (>60)
[2021-12-17 20:14] LABS: CORONAVIRUS COVID-19 NAA NEGATIVE (NEGATIVE)
[2021-12-17] MEDS ORDERED: Hydrocortisone 2.5% Crm 30 GM Tube TOP PRN (21:06)
[2021-12-17] MEDS ORDERED: Magnesium Hydroxide 400 MG/5 ML Susp 30 ML Cup PO PRN (21:06)
[2021-12-17] MEDS ORDERED: Melatonin 3 MG Tab PO PRN (21:06)
[2021-12-17] MEDS ORDERED: Magnesium Sulfate/Water 4 GM in Premix Bag 1 BAG IV ONE (21:08)
[2021-12-17] MEDS ORDERED: Albuterol 0.5% 5 MG/ML Neb Soln 20 ML Bottle NEB PRN (21:09)
[2021-12-17] MEDS ORDERED: Bumetanide 1 MG/4 ML MDV IVPUSH ONE (21:10)
[2021-12-17] MEDS ORDERED: Ondansetron 4 MG/2 ML SDV IV PRN (21:11)
[2021-12-17] MEDS ORDERED: Acetaminophen 325 MG Tab PO PRN (21:11)
[2021-12-17] MEDS ORDERED: Enoxaparin 30 MG/0.3 ML Syringe SUBCUT SCH (21:15)
[2021-12-17] MEDS ORDERED: Dextrose 5%-0.45% NaCl 1,000 ML IV SCH (21:15)
[2021-12-17] MEDS ORDERED: Levofloxacin/Dextrose 5%-Water 750 MG in Premix Bag 1 BAG IV SCH (21:30)
[2021-12-17] MEDS: methylPREDNISolone Sodium Succinate 125 MG/2 ML SDV IVPUSH SCH (22:42)
[2021-12-18] MEDS ORDERED: Sodium Chloride 0.9% 10 ML Syringe FLUSH PRN (00:28)
[2021-12-18] MEDS: methylPREDNISolone Sodium Succinate 125 MG/2 ML SDV IVPUSH SCH (06:22)
[2021-12-18 06:32] LABS: ESTIMATED GFR 35 mL/min (>60)
[2021-12-18] MEDS ORDERED: Torsemide 20 MG Tab PO SCH (08:00)
[2021-12-18] MEDS ORDERED: Albuterol 0.083% 2.5 MG/3 ML Neb Soln NEB PRN (08:41)
[2021-12-18] MEDS ORDERED: DULoxetine 30 MG Cap PO SCH (09:00)
[2021-12-18] MEDS ORDERED: Allopurinol 100 MG Tab PO SCH (09:00)
[2021-12-18] MEDS ORDERED: Lisinopril 20 MG Tab PO SCH (09:00)
[2021-12-18] MEDS ORDERED: Non-Formulary Medication 1 Each (Omeprazole [Omeprazole] 20 MG Cap.Cr) PO SCH (09:00)
[2021-12-18] MEDS ORDERED: Cyclobenzaprine 10 MG Tab PO SCH (09:00)
[2021-12-18 14:16] VITALS: BP 150/83; PULSE 104
== END 2021-12-18 11:05 | disposition home or self-care (01) ==
LOC: FB.ED 15:29 → FB.MS 20:47 → UNDOADMOB 20:47
PROVIDERS: ADMIT Family Medicine; ATTEND Family Medicine
DX: J44.1 Chronic obstructive pulmonary disease with (acute) exacerbation (principal); K21.9 Gastro-esophageal reflux disease without esophagitis; I13.0 Hypertensive heart and chronic kidney disease with heart failure and stage 1 through stage 4 chronic kidney disease, or unspecified chronic kidney disease; I50.9 Heart failure, unspecified; E11.22 Type 2 diabetes mellitus with diabetic chronic kidney disease; N18.32 Chronic kidney disease, stage 3b; E83.42 Hypomagnesemia; E66.2 Morbid (severe) obesity with alveolar hypoventilation; J90 Pleural effusion, not elsewhere classified; Z68.33 Body mass index [BMI] 33.0-33.9, adult; Z88.6 Allergy status to analgesic agent; Z88.8 Allergy status to other drugs, medicaments and biological substances; Z79.899 Other long term (current) drug therapy; Z98.890 Other specified postprocedural states; Z87.891 Personal history of nicotine dependence; Z20.822 Contact with and (suspected) exposure to COVID-19
CPT/HCPCS: 0241U; 36415; 71046; 80048; 80053; 81001; 83735; 83880; 84484; 85025; 86140; 87040; 87086; 87088; 87186; 93005; A9270; J1650; J1956; J2930; J3475; J3490

== ENCOUNTER 2021-12-19 09:57 | Emergency (ER) | payer MEDICARE, OTHER ==
[2021-12-19 10:59] LABS: ESTIMATED GFR 31 mL/min (>60)
[2021-12-19 11:40] VITALS: BP 133/76; PULSE 101
== END 2021-12-19 11:51 | disposition home or self-care (01) ==
LOC: FB.ED 09:57
DX: R53.1 Weakness (principal); E66.2 Morbid (severe) obesity with alveolar hypoventilation; F10.129 Alcohol abuse with intoxication, unspecified; J44.9 Chronic obstructive pulmonary disease, unspecified; I10 Essential (primary) hypertension; Z88.5 Allergy status to narcotic agent; Z88.8 Allergy status to other drugs, medicaments and biological substances
CPT/HCPCS: 36415; 80053; 80307; 83735; 85025; 99284

== ENCOUNTER 2022-01-09 10:37 | Emergency (ER) | payer MEDICARE, OTHER ==
[2022-01-09] MEDS ORDERED: Ketorolac 30 MG/ML SDV IM ONE (10:58)
[2022-01-09 12:47] VITALS: BP 157/94; PULSE 103
== END 2022-01-09 11:29 | disposition home or self-care (01) ==
LOC: FB.ED 10:37
DX: S80.01XA Contusion of right knee, initial encounter (principal); L30.1 Dyshidrosis [pompholyx]; H81.10 Benign paroxysmal vertigo, unspecified ear; I10 Essential (primary) hypertension; J44.9 Chronic obstructive pulmonary disease, unspecified; E66.9 Obesity, unspecified; Z68.30 Body mass index [BMI] 30.0-30.9, adult; Z88.5 Allergy status to narcotic agent; Z88.8 Allergy status to other drugs, medicaments and biological substances; W19.XXXA Unspecified fall, initial encounter
CPT/HCPCS: 96372; 99283; J1885

== ENCOUNTER 2022-01-16 06:36 | Emergency (ER) | payer MEDICARE, OTHER ==
[2022-01-16 07:04] VITALS: BP 122/85
[2022-01-16] MEDS ORDERED: Sodium Chloride 0.9% 1,000 ML IV ONE (07:18)
[2022-01-16 08:04] LABS: ESTIMATED GFR 50 mL/min (>60)
[2022-01-16 09:20] LABS: CORONAVIRUS COVID-19 NAA NEGATIVE (NEGATIVE)
[2022-01-16 10:15] VITALS: PULSE 101
== END 2022-01-16 09:56 | disposition home or self-care (01) ==
LOC: FB.ED 06:36
DX: F10.129 Alcohol abuse with intoxication, unspecified (principal); I10 Essential (primary) hypertension; J44.9 Chronic obstructive pulmonary disease, unspecified; K21.9 Gastro-esophageal reflux disease without esophagitis; E66.9 Obesity, unspecified; Z68.30 Body mass index [BMI] 30.0-30.9, adult; Z88.5 Allergy status to narcotic agent; Z88.8 Allergy status to other drugs, medicaments and biological substances; Z20.822 Contact with and (suspected) exposure to COVID-19; W19.XXXA Unspecified fall, initial encounter
CPT/HCPCS: 0241U; 36415; 71045; 73630; 80053; 80307; 85025; 96360; 99284; J7030

== ENCOUNTER 2022-01-22 08:10 | Emergency (ER) | payer MEDICARE, OTHER ==
[2022-01-22] MEDS ORDERED: Sodium Chloride 0.9% 10 ML Syringe FLUSH PRN (08:27)
[2022-01-22 08:38] LABS: ESTIMATED GFR 50 mL/min (>60)
[2022-01-22] MEDS ORDERED: Sodium Chloride 0.9% 1,000 ML IV SCH ×2 (08:45)
[2022-01-22] MEDS ORDERED: Ibuprofen 400 MG Tab PO ONE (11:21)
[2022-01-22 11:28] VITALS: BP 119/74; PULSE 97
[2022-01-22 13:10] LABS: HEMOGLOBIN A1C 6.3 % (<5.7)
== END 2022-01-22 14:05 | disposition home or self-care (01) ==
LOC: FB.ED 08:10
DX: S91.311A Laceration without foreign body, right foot, initial encounter (principal); J44.9 Chronic obstructive pulmonary disease, unspecified; I10 Essential (primary) hypertension; E66.9 Obesity, unspecified; K21.9 Gastro-esophageal reflux disease without esophagitis; F10.920 Alcohol use, unspecified with intoxication, uncomplicated; Z68.30 Body mass index [BMI] 30.0-30.9, adult; Z88.5 Allergy status to narcotic agent; Y90.0 Blood alcohol level of less than 20 mg/100 ml; W19.XXXA Unspecified fall, initial encounter; Y92.009 Unspecified place in unspecified non-institutional (private) residence as the place of occurrence of the external cause
CPT/HCPCS: 36415; 80048; 80307; 81001; 83036; 83880; 84484; 85025; 93005; 96360; 96361; 99284; A9270; J7030

== ENCOUNTER 2022-02-18 13:12 | Inpatient (IN) | payer MEDICARE, OTHER ==
[2022-02-18] MEDS ORDERED: Ondansetron 4 MG/2 ML SDV IV PRN (13:53)
[2022-02-18] MEDS: Sodium Chloride 0.9% 10 ML Syringe FLUSH PRN ×3 (14:30→20:00)
[2022-02-18 14:39] LABS: ESTIMATED GFR 50 mL/min (>60)
[2022-02-18] MEDS: HYDROmorphone 2 MG/ML SDV IVPUSH PRN ×2 (15:39→19:55)
[2022-02-18] MEDS ORDERED: traMADol 50 MG Tab PO PRN (20:27)
[2022-02-18] MEDS ORDERED: Meclizine 25 MG Tab PO PRN (20:40)
[2022-02-18] MEDS: Cyclobenzaprine 10 MG Tab PO SCH (23:16)
[2022-02-18] MEDS: traMADol 50 MG Tab PO PRN (23:16)
[2022-02-18] MEDS: Magnesium Oxide 400 MG Tab PO SCH (23:16)
[2022-02-18] MEDS: Betamethasone Dipropionate/Clotrimazole 0.05-1% Crm 15 GM Tube TOP SCH (23:16)
[2022-02-19] MEDS: Pantoprazole 40 MG Tab.CR PO SCH (06:55)
[2022-02-19] MEDS: DULoxetine 30 MG Cap PO SCH (10:46)
[2022-02-19] MEDS: Torsemide 20 MG Tab PO SCH (10:47)
[2022-02-19] MEDS: Oxybutynin 5 MG Tab.ER PO SCH (10:48)
[2022-02-19] MEDS: Magnesium Oxide 400 MG Tab PO SCH ×3 (10:49→22:15)
[2022-02-19] MEDS: Allopurinol 100 MG Tab PO SCH (10:49)
[2022-02-19] MEDS: Cyclobenzaprine 10 MG Tab PO SCH ×2 (10:51→22:17)
[2022-02-19] MEDS: traMADol 50 MG Tab PO PRN (10:55)
[2022-02-19] MEDS: Betamethasone Dipropionate/Clotrimazole 0.05-1% Crm 15 GM Tube TOP SCH ×2 (11:20→22:16)
[2022-02-19] MEDS: Clobetasol 0.05% Crm 15 GM Tube TOP SCH (13:15)
[2022-02-19] MEDS: Enoxaparin 40 MG/0.4 ML Syringe SUBCUT SCH (13:28)
[2022-02-19] MEDS: HYDROmorphone 2 MG/ML SDV IVPUSH PRN ×2 (14:42→21:42)
[2022-02-20] MEDS: Pantoprazole 40 MG Tab.CR PO SCH (06:31)
[2022-02-20] MEDS: Magnesium Oxide 400 MG Tab PO SCH ×3 (09:40→21:20)
[2022-02-20] MEDS: Torsemide 20 MG Tab PO SCH (09:40)
[2022-02-20] MEDS: Allopurinol 100 MG Tab PO SCH (09:40)
[2022-02-20] MEDS: Cyclobenzaprine 10 MG Tab PO SCH ×2 (09:41→21:21)
[2022-02-20] MEDS: Betamethasone Dipropionate/Clotrimazole 0.05-1% Crm 15 GM Tube TOP SCH ×2 (09:41→21:19)
[2022-02-20] MEDS: Oxybutynin 5 MG Tab.ER PO SCH (09:42)
[2022-02-20] MEDS: Clobetasol 0.05% Crm 15 GM Tube TOP SCH (09:42)
[2022-02-20] MEDS: DULoxetine 30 MG Cap PO SCH (09:43)
[2022-02-20] MEDS: Enoxaparin 40 MG/0.4 ML Syringe SUBCUT SCH (12:53)
[2022-02-20] MEDS: traMADol 50 MG Tab PO PRN ×2 (14:11→21:18)
[2022-02-21] MEDS: Torsemide 20 MG Tab PO SCH (09:40)
[2022-02-21] MEDS: Oxybutynin 5 MG Tab.ER PO SCH (09:40)
[2022-02-21] MEDS: Cyclobenzaprine 10 MG Tab PO SCH ×2 (09:41→21:24)
[2022-02-21] MEDS: Betamethasone Dipropionate/Clotrimazole 0.05-1% Crm 15 GM Tube TOP SCH ×2 (09:41→21:25)
[2022-02-21] MEDS: Magnesium Oxide 400 MG Tab PO SCH ×3 (09:41→21:24)
[2022-02-21] MEDS: Clobetasol 0.05% Crm 15 GM Tube TOP SCH (09:42)
[2022-02-21] MEDS: Allopurinol 100 MG Tab PO SCH (09:42)
[2022-02-21] MEDS: DULoxetine 30 MG Cap PO SCH (09:44)
[2022-02-21] MEDS: Enoxaparin 40 MG/0.4 ML Syringe SUBCUT SCH (13:08)
[2022-02-21] MEDS: Pantoprazole 40 MG Tab.CR PO SCH (13:08)
[2022-02-21] MEDS: traMADol 50 MG Tab PO PRN (13:08)
[2022-02-22] MEDS: Pantoprazole 40 MG Tab.CR PO SCH (06:30)
[2022-02-22] MEDS: Magnesium Oxide 400 MG Tab PO SCH (08:29)
[2022-02-22] MEDS: traMADol 50 MG Tab PO PRN (08:32)
[2022-02-22] MEDS: Oxybutynin 5 MG Tab.ER PO SCH (08:33)
[2022-02-22] MEDS: DULoxetine 30 MG Cap PO SCH (08:33)
[2022-02-22] MEDS: Torsemide 20 MG Tab PO SCH (08:33)
[2022-02-22] MEDS: Allopurinol 100 MG Tab PO SCH (08:34)
[2022-02-22] MEDS: Cyclobenzaprine 10 MG Tab PO SCH (08:34)
[2022-02-22 08:36] VITALS: BP 139/96; PULSE 104
[2022-02-22] MEDS: Betamethasone Dipropionate/Clotrimazole 0.05-1% Crm 15 GM Tube TOP SCH (10:08)
[2022-02-22] MEDS: Clobetasol 0.05% Crm 15 GM Tube TOP SCH (10:09)
[2022-02-22] MEDS: Enoxaparin 40 MG/0.4 ML Syringe SUBCUT SCH (12:30)
== END 2022-02-22 12:50 | disposition swing bed (61) | DRG 560 ==
LOC: FB.MS 13:12
PROVIDERS: ADMIT Family Medicine; ATTEND Family Medicine
DX: S92.901G Unspecified fracture of right foot, subsequent encounter for fracture with delayed healing (principal); F33.1 Major depressive disorder, recurrent, moderate; Z68.41 Body mass index [BMI] 40.0-44.9, adult; E66.9 Obesity, unspecified; N18.9 Chronic kidney disease, unspecified; N18.32 Chronic kidney disease, stage 3b; I12.9 Hypertensive chronic kidney disease with stage 1 through stage 4 chronic kidney disease, or unspecified chronic kidney disease; F10.11 Alcohol abuse, in remission; K21.9 Gastro-esophageal reflux disease without esophagitis; M54.9 Dorsalgia, unspecified; G89.29 Other chronic pain; G62.9 Polyneuropathy, unspecified; Z96.643 Presence of artificial hip joint, bilateral; Z79.899 Other long term (current) drug therapy; Z88.5 Allergy status to narcotic agent
CPT/HCPCS: 36415; 73700-RT; 80053; 83735; 85025; 86140; 97116-GP; 97161-GP; 97165-GO; 97535-GO; A9270-GY; J1170; J1650; J3490

== ENCOUNTER 2022-02-22 12:51 | Inpatient (IN) | payer MEDICARE, OTHER ==
[2022-02-22] MEDS: Magnesium Oxide 400 MG Tab PO SCH ×2 (15:31→20:47)
[2022-02-22] MEDS: Acetaminophen 650 MG Tab.ER PO SCH ×2 (15:32→20:47)
[2022-02-22] MEDS: traMADol 50 MG Tab PO PRN (15:40)
[2022-02-23] MEDS: Acetaminophen 650 MG Tab.ER PO SCH ×3 (09:15→20:42)
[2022-02-23] MEDS: Magnesium Oxide 400 MG Tab PO SCH ×3 (09:15→20:41)
[2022-02-23] MEDS ORDERED: Hydrocortisone 2.5% Crm 30 GM Tube TOP PRN (11:41)
[2022-02-23] MEDS ORDERED: traMADol 50 MG Tab PO PRN (11:41)
[2022-02-23] MEDS ORDERED: Torsemide 20 MG Tab PO PRN (11:41)
[2022-02-23] MEDS ORDERED: Melatonin 3 MG Tab PO PRN (11:41)
[2022-02-23] MEDS ORDERED: Magnesium Hydroxide 400 MG/5 ML Susp 30 ML Cup PO PRN (12:01)
[2022-02-23] MEDS ORDERED: Meclizine 25 MG Tab PO PRN (12:02)
[2022-02-23] MEDS: Allopurinol 100 MG Tab PO SCH (12:12)
[2022-02-23] MEDS: Cyclobenzaprine 10 MG Tab PO SCH ×2 (12:13→20:39)
[2022-02-23] MEDS: Torsemide 20 MG Tab PO SCH (12:13)
[2022-02-23] MEDS: Betamethasone Dipropionate/Clotrimazole 0.05-1% Crm 15 GM Tube TOP SCH ×2 (12:15→22:31)
[2022-02-23] MEDS: Oxybutynin 5 MG Tab.ER PO SCH (12:16)
[2022-02-23] MEDS: Pantoprazole 40 MG Tab.CR PO SCH (12:17)
[2022-02-23] MEDS ORDERED: Acetaminophen 650 MG Tab.ER PO SCH (14:00)
[2022-02-23] MEDS ORDERED: Non-Formulary Medication 1 Each (Magnesium Oxide [Magnesium] 400 MG Tablet) PO SCH (14:00)
[2022-02-23] MEDS: traMADol 50 MG Tab PO PRN (19:44)
[2022-02-23] MEDS: DULoxetine 30 MG Cap PO SCH (20:38)
[2022-02-24] MEDS: Pantoprazole 40 MG Tab.CR PO SCH (05:22)
[2022-02-24] MEDS: Torsemide 20 MG Tab PO SCH (08:51)
[2022-02-24] MEDS: Cyclobenzaprine 10 MG Tab PO SCH ×2 (08:52→20:44)
[2022-02-24] MEDS: Oxybutynin 5 MG Tab.ER PO SCH (08:53)
[2022-02-24] MEDS: Allopurinol 100 MG Tab PO SCH (08:53)
[2022-02-24] MEDS: Acetaminophen 650 MG Tab.ER PO SCH ×3 (08:53→20:45)
[2022-02-24] MEDS: Magnesium Oxide 400 MG Tab PO SCH ×3 (08:53→20:45)
[2022-02-24] MEDS: Betamethasone Dipropionate/Clotrimazole 0.05-1% Crm 15 GM Tube TOP SCH ×2 (08:54→20:46)
[2022-02-24] MEDS: DULoxetine 30 MG Cap PO SCH (20:44)
[2022-02-25] MEDS: Pantoprazole 40 MG Tab.CR PO SCH (05:49)
[2022-02-25] MEDS: Cyclobenzaprine 10 MG Tab PO SCH ×2 (09:49→20:38)
[2022-02-25] MEDS: Torsemide 20 MG Tab PO SCH (09:50)
[2022-02-25] MEDS: Acetaminophen 650 MG Tab.ER PO SCH ×3 (09:50→20:38)
[2022-02-25] MEDS: Oxybutynin 5 MG Tab.ER PO SCH (09:51)
[2022-02-25] MEDS: Magnesium Oxide 400 MG Tab PO SCH ×3 (09:52→20:38)
[2022-02-25] MEDS: Betamethasone Dipropionate/Clotrimazole 0.05-1% Crm 15 GM Tube TOP SCH ×2 (09:52→20:38)
[2022-02-25] MEDS: Allopurinol 100 MG Tab PO SCH (09:54)
[2022-02-25] MEDS: traMADol 50 MG Tab PO PRN (19:41)
[2022-02-25] MEDS: DULoxetine 30 MG Cap PO SCH (20:38)
[2022-02-26] MEDS: Acetaminophen 650 MG Tab.ER PO PRN (00:11)
[2022-02-26] MEDS: Pantoprazole 40 MG Tab.CR PO SCH (05:24)
[2022-02-26] MEDS: Cyclobenzaprine 10 MG Tab PO SCH ×2 (08:13→20:56)
[2022-02-26] MEDS: Betamethasone Dipropionate/Clotrimazole 0.05-1% Crm 15 GM Tube TOP SCH ×2 (08:14→20:57)
[2022-02-26] MEDS: Magnesium Oxide 400 MG Tab PO SCH ×3 (08:15→20:59)
[2022-02-26] MEDS: Oxybutynin 5 MG Tab.ER PO SCH (08:15)
[2022-02-26] MEDS: Acetaminophen 650 MG Tab.ER PO SCH ×3 (08:16→20:58)
[2022-02-26] MEDS: Torsemide 20 MG Tab PO SCH (08:19)
[2022-02-26] MEDS: Allopurinol 100 MG Tab PO SCH (08:25)
[2022-02-26] MEDS: DULoxetine 30 MG Cap PO SCH (20:55)
[2022-02-26] MEDS: rOPINIRole 0.5 MG Tab PO SCH (20:59)
[2022-02-27] MEDS: Pantoprazole 40 MG Tab.CR PO SCH (05:13)
[2022-02-27] MEDS: Torsemide 20 MG Tab PO SCH (08:25)
[2022-02-27] MEDS: Magnesium Oxide 400 MG Tab PO SCH ×3 (08:26→20:44)
[2022-02-27] MEDS: Cyclobenzaprine 10 MG Tab PO SCH ×2 (08:26→20:43)
[2022-02-27] MEDS: Acetaminophen 650 MG Tab.ER PO SCH ×3 (08:27→20:44)
[2022-02-27] MEDS: Betamethasone Dipropionate/Clotrimazole 0.05-1% Crm 15 GM Tube TOP SCH ×2 (08:28→20:48)
[2022-02-27] MEDS: Oxybutynin 5 MG Tab.ER PO SCH (08:28)
[2022-02-27] MEDS: Allopurinol 100 MG Tab PO SCH (08:29)
[2022-02-27] MEDS: Bacitracin Oint 28.35 GM Tube TOP SCH ×2 (13:21→20:42)
[2022-02-27] MEDS: DULoxetine 30 MG Cap PO SCH (20:43)
[2022-02-27] MEDS: rOPINIRole 0.5 MG Tab PO SCH (20:44)
[2022-02-27] MEDS: traMADol 50 MG Tab PO PRN (20:47)
[2022-02-28] MEDS: Pantoprazole 40 MG Tab.CR PO SCH (06:19)
[2022-02-28] MEDS: Torsemide 20 MG Tab PO SCH (08:06)
[2022-02-28] MEDS: Cyclobenzaprine 10 MG Tab PO SCH ×2 (08:07→21:04)
[2022-02-28] MEDS: Acetaminophen 650 MG Tab.ER PO SCH ×3 (08:09→21:06)
[2022-02-28] MEDS: Magnesium Oxide 400 MG Tab PO SCH ×3 (08:10→21:05)
[2022-02-28] MEDS: Betamethasone Dipropionate/Clotrimazole 0.05-1% Crm 15 GM Tube TOP SCH ×2 (08:12→21:03)
[2022-02-28] MEDS: Allopurinol 100 MG Tab PO SCH (08:14)
[2022-02-28] MEDS: Oxybutynin 5 MG Tab.ER PO SCH (08:14)
[2022-02-28] MEDS: Bacitracin Oint 28.35 GM Tube TOP SCH ×2 (09:46→21:01)
[2022-02-28] MEDS: DULoxetine 30 MG Cap PO SCH (21:05)
[2022-02-28] MEDS: rOPINIRole 0.5 MG Tab PO SCH (21:05)
[2022-03-01] MEDS: traMADol 50 MG Tab PO PRN (04:03)
[2022-03-01] MEDS: Acetaminophen 650 MG Tab.ER PO PRN (04:03)
[2022-03-01] MEDS: Pantoprazole 40 MG Tab.CR PO SCH (05:21)
[2022-03-01] MEDS: Torsemide 20 MG Tab PO SCH (08:23)
[2022-03-01] MEDS: Cyclobenzaprine 10 MG Tab PO SCH ×2 (08:24→21:37)
[2022-03-01] MEDS: Betamethasone Dipropionate/Clotrimazole 0.05-1% Crm 15 GM Tube TOP SCH ×2 (08:26→21:38)
[2022-03-01] MEDS: Magnesium Oxide 400 MG Tab PO SCH ×3 (08:26→21:35)
[2022-03-01] MEDS: Oxybutynin 5 MG Tab.ER PO SCH (08:27)
[2022-03-01] MEDS: Acetaminophen 650 MG Tab.ER PO SCH ×4 (08:28→21:36)
[2022-03-01] MEDS: Allopurinol 100 MG Tab PO SCH (08:28)
[2022-03-01] MEDS: Bacitracin Oint 28.35 GM Tube TOP SCH ×2 (09:19→21:38)
[2022-03-01] MEDS: Ibuprofen 200 MG Tab PO SCH ×4 (09:43→21:35)
[2022-03-01] MEDS: rOPINIRole 0.5 MG Tab PO SCH (21:37)
[2022-03-01] MEDS: DULoxetine 30 MG Cap PO SCH (21:37)
[2022-03-02] MEDS: Pantoprazole 40 MG Tab.CR PO SCH (05:22)
[2022-03-02] MEDS: Betamethasone Dipropionate/Clotrimazole 0.05-1% Crm 15 GM Tube TOP SCH ×2 (08:04→21:06)
[2022-03-02] MEDS: Bacitracin Oint 28.35 GM Tube TOP SCH ×2 (08:07→21:05)
[2022-03-02] MEDS: Torsemide 20 MG Tab PO SCH (08:09)
[2022-03-02] MEDS: Cyclobenzaprine 10 MG Tab PO SCH ×2 (08:09→21:04)
[2022-03-02] MEDS: Magnesium Oxide 400 MG Tab PO SCH ×3 (08:10→21:04)
[2022-03-02] MEDS: Ibuprofen 200 MG Tab PO SCH ×4 (08:10→21:05)
[2022-03-02] MEDS: Oxybutynin 5 MG Tab.ER PO SCH (08:11)
[2022-03-02] MEDS: Acetaminophen 650 MG Tab.ER PO SCH ×4 (08:12→21:04)
[2022-03-02] MEDS: Allopurinol 100 MG Tab PO SCH (08:12)
[2022-03-02] MEDS: rOPINIRole 0.5 MG Tab PO SCH (21:03)
[2022-03-02] MEDS: DULoxetine 30 MG Cap PO SCH (21:05)
[2022-03-03] MEDS: Pantoprazole 40 MG Tab.CR PO SCH (06:35)
[2022-03-03] MEDS: Bacitracin Oint 28.35 GM Tube TOP SCH ×2 (09:22→21:12)
[2022-03-03] MEDS: Betamethasone Dipropionate/Clotrimazole 0.05-1% Crm 15 GM Tube TOP SCH ×2 (09:23→21:14)
[2022-03-03] MEDS: Torsemide 20 MG Tab PO SCH (09:24)
[2022-03-03] MEDS: Magnesium Oxide 400 MG Tab PO SCH ×3 (09:24→21:16)
[2022-03-03] MEDS: Cyclobenzaprine 10 MG Tab PO SCH ×2 (09:25→21:15)
[2022-03-03] MEDS: Ibuprofen 200 MG Tab PO SCH ×4 (09:26→21:16)
[2022-03-03] MEDS: Oxybutynin 5 MG Tab.ER PO SCH (09:27)
[2022-03-03] MEDS: Acetaminophen 650 MG Tab.ER PO SCH ×4 (09:27→21:18)
[2022-03-03] MEDS: Allopurinol 100 MG Tab PO SCH (09:28)
[2022-03-03] MEDS: DULoxetine 30 MG Cap PO SCH (21:13)
[2022-03-03] MEDS: rOPINIRole 0.5 MG Tab PO SCH (21:17)
[2022-03-04] MEDS: Pantoprazole 40 MG Tab.CR PO SCH (06:20)
[2022-03-04] MEDS: traMADol 50 MG Tab PO PRN (09:15)
[2022-03-04] MEDS: Ibuprofen 200 MG Tab PO SCH ×4 (09:27→21:28)
[2022-03-04] MEDS: Magnesium Oxide 400 MG Tab PO SCH ×3 (09:27→21:28)
[2022-03-04] MEDS: Bacitracin Oint 28.35 GM Tube TOP SCH ×2 (09:27→21:25)
[2022-03-04] MEDS: Acetaminophen 650 MG Tab.ER PO SCH ×4 (09:28→21:30)
[2022-03-04] MEDS: Torsemide 20 MG Tab PO SCH (09:29)
[2022-03-04] MEDS: Cyclobenzaprine 10 MG Tab PO SCH ×2 (09:30→21:26)
[2022-03-04] MEDS: Betamethasone Dipropionate/Clotrimazole 0.05-1% Crm 15 GM Tube TOP SCH ×2 (09:30→21:27)
[2022-03-04] MEDS: Mirabegron 25 MG Tab Extended Release PO SCH (09:31)
[2022-03-04] MEDS: Allopurinol 100 MG Tab PO SCH (09:32)
[2022-03-04] MEDS: DULoxetine 30 MG Cap PO SCH (21:26)
[2022-03-04] MEDS: rOPINIRole 0.5 MG Tab PO SCH (21:30)
[2022-03-05] MEDS: Pantoprazole 40 MG Tab.CR PO SCH (05:40)
[2022-03-05] MEDS: Torsemide 20 MG Tab PO SCH (08:40)
[2022-03-05] MEDS: Bacitracin Oint 28.35 GM Tube TOP SCH ×2 (08:40→20:02)
[2022-03-05] MEDS: Allopurinol 100 MG Tab PO SCH (08:41)
[2022-03-05] MEDS: Cyclobenzaprine 10 MG Tab PO SCH ×2 (08:41→20:11)
[2022-03-05] MEDS: Ibuprofen 200 MG Tab PO SCH ×4 (08:41→20:07)
[2022-03-05] MEDS: Mirabegron 25 MG Tab Extended Release PO SCH (08:41)
[2022-03-05] MEDS: Acetaminophen 650 MG Tab.ER PO SCH ×4 (08:41→20:05)
[2022-03-05] MEDS: Betamethasone Dipropionate/Clotrimazole 0.05-1% Crm 15 GM Tube TOP SCH ×2 (08:42→20:03)
[2022-03-05] MEDS: Magnesium Oxide 400 MG Tab PO SCH ×3 (08:42→20:17)
[2022-03-05] MEDS: Levothyroxine 50 MCG Tab PO SCH (10:57)
[2022-03-05] MEDS: rOPINIRole 0.5 MG Tab PO SCH (20:09)
[2022-03-05] MEDS: DULoxetine 30 MG Cap PO SCH (20:12)
[2022-03-06] MEDS: Levothyroxine 50 MCG Tab PO SCH (05:08)
[2022-03-06] MEDS: Pantoprazole 40 MG Tab.CR PO SCH (05:08)
[2022-03-06] MEDS: Betamethasone Dipropionate/Clotrimazole 0.05-1% Crm 15 GM Tube TOP SCH ×2 (08:46→21:15)
[2022-03-06] MEDS: Bacitracin Oint 28.35 GM Tube TOP SCH ×2 (08:46→21:15)
[2022-03-06] MEDS: Cyclobenzaprine 10 MG Tab PO SCH ×2 (08:47→21:16)
[2022-03-06] MEDS: Acetaminophen 650 MG Tab.ER PO SCH ×4 (08:47→21:15)
[2022-03-06] MEDS: Ibuprofen 200 MG Tab PO SCH ×4 (08:48→21:14)
[2022-03-06] MEDS: Torsemide 20 MG Tab PO SCH (08:48)
[2022-03-06] MEDS: Magnesium Oxide 400 MG Tab PO SCH ×3 (08:49→21:16)
[2022-03-06] MEDS: Mirabegron 25 MG Tab Extended Release PO SCH (08:49)
[2022-03-06] MEDS: Allopurinol 100 MG Tab PO SCH (08:49)
[2022-03-06] MEDS: traMADol 50 MG Tab PO PRN (11:06)
[2022-03-06] MEDS: Gabapentin 100 MG Cap PO SCH ×2 (12:06→21:20)
[2022-03-06] MEDS: DULoxetine 30 MG Cap PO SCH (21:09)
[2022-03-06] MEDS: rOPINIRole 0.5 MG Tab PO SCH (21:13)
[2022-03-07] MEDS: Levothyroxine 50 MCG Tab PO SCH (05:29)
[2022-03-07] MEDS: Pantoprazole 40 MG Tab.CR PO SCH (05:29)
[2022-03-07] MEDS: Bacitracin Oint 28.35 GM Tube TOP SCH ×2 (09:01→20:07)
[2022-03-07] MEDS: Betamethasone Dipropionate/Clotrimazole 0.05-1% Crm 15 GM Tube TOP SCH ×2 (09:01→20:02)
[2022-03-07] MEDS: Torsemide 20 MG Tab PO SCH (09:01)
[2022-03-07] MEDS: Allopurinol 100 MG Tab PO SCH (09:02)
[2022-03-07] MEDS: Acetaminophen 650 MG Tab.ER PO SCH ×4 (09:02→21:42)
[2022-03-07] MEDS: Ibuprofen 200 MG Tab PO SCH ×4 (09:02→21:42)
[2022-03-07] MEDS: Gabapentin 100 MG Cap PO SCH ×2 (09:03→19:59)
[2022-03-07] MEDS: Cyclobenzaprine 10 MG Tab PO SCH ×2 (09:03→19:59)
[2022-03-07] MEDS: Magnesium Oxide 400 MG Tab PO SCH ×3 (09:03→19:59)
[2022-03-07] MEDS: Mirabegron 25 MG Tab Extended Release PO SCH (09:03)
[2022-03-07] MEDS: traMADol 50 MG Tab PO PRN (11:42)
[2022-03-07] MEDS: DULoxetine 30 MG Cap PO SCH (19:59)
[2022-03-07] MEDS: rOPINIRole 0.5 MG Tab PO SCH (19:59)
[2022-03-08 05:05] VITALS: BP 128/94; PULSE 88
[2022-03-08] MEDS: Pantoprazole 40 MG Tab.CR PO SCH (06:08)
[2022-03-08] MEDS: Levothyroxine 50 MCG Tab PO SCH (06:09)
[2022-03-08] MEDS: Bacitracin Oint 28.35 GM Tube TOP SCH (09:02)
[2022-03-08] MEDS: Gabapentin 100 MG Cap PO SCH (09:02)
[2022-03-08] MEDS: Torsemide 20 MG Tab PO SCH (09:03)
[2022-03-08] MEDS: Cyclobenzaprine 10 MG Tab PO SCH (09:03)
[2022-03-08] MEDS: Ibuprofen 200 MG Tab PO SCH ×2 (09:04→12:19)
[2022-03-08] MEDS: Betamethasone Dipropionate/Clotrimazole 0.05-1% Crm 15 GM Tube TOP SCH (09:04)
[2022-03-08] MEDS: Magnesium Oxide 400 MG Tab PO SCH ×2 (09:04→13:20)
[2022-03-08] MEDS: Mirabegron 25 MG Tab Extended Release PO SCH (09:05)
[2022-03-08] MEDS: Allopurinol 100 MG Tab PO SCH (09:05)
[2022-03-08] MEDS: Acetaminophen 650 MG Tab.ER PO SCH ×2 (09:19→12:19)
== END 2022-03-08 14:40 | disposition home health service (06) | DRG 560 ==
LOC: FB.MS 12:52 → UNDOADMIN 12:52
PROVIDERS: ADMIT Family Medicine; ATTEND Family Medicine
DX: S92.301G Fracture of unspecified metatarsal bone(s), right foot, subsequent encounter for fracture with delayed healing (principal); F33.1 Major depressive disorder, recurrent, moderate; Z68.41 Body mass index [BMI] 40.0-44.9, adult; R29.6 Repeated falls; R53.1 Weakness; H54.7 Unspecified visual loss; L97.511 Non-pressure chronic ulcer of other part of right foot limited to breakdown of skin; Z51.5 Encounter for palliative care; J44.9 Chronic obstructive pulmonary disease, unspecified; K21.9 Gastro-esophageal reflux disease without esophagitis; R32 Unspecified urinary incontinence; G89.29 Other chronic pain; M54.9 Dorsalgia, unspecified; G62.9 Polyneuropathy, unspecified; Z96.643 Presence of artificial hip joint, bilateral; Z96.611 Presence of right artificial shoulder joint; N31.9 Neuromuscular dysfunction of bladder, unspecified; I12.9 Hypertensive chronic kidney disease with stage 1 through stage 4 chronic kidney disease, or unspecified chronic kidney disease; N18.32 Chronic kidney disease, stage 3b; B35.3 Tinea pedis; Z20.822 Contact with and (suspected) exposure to COVID-19; E66.9 Obesity, unspecified; I87.2 Venous insufficiency (chronic) (peripheral); Z88.5 Allergy status to narcotic agent; Z88.8 Allergy status to other drugs, medicaments and biological substances; Z79.899 Other long term (current) drug therapy
CPT/HCPCS: 36415; 84443; 97110-GP; 97116-GP; 97530-GO; 97530-GP; 97535-GO; 99305; 99308; 99315; A9270-GY; U0002

== ENCOUNTER 2022-04-06 17:18 | Emergency (ER) | payer MEDICARE, OTHER ==
[2022-04-06] MEDS ORDERED: predniSONE 20 MG Tab PO ONE (17:19)
[2022-04-06] MEDS ORDERED: Amoxicillin/Clavulanate K 500-125 MG Tab PO ONE (17:19)
[2022-04-06] MEDS ORDERED: methylPREDNISolone Sodium Succinate 125 MG/2 ML SDV ONE (17:23)
[2022-04-06] MEDS ORDERED: Albuterol/Ipratropium 3.0-0.5 MG/3 ML Neb Soln ONE (17:23)
[2022-04-06] MEDS ORDERED: Albuterol/Ipratropium 3.0-0.5 MG/3 ML Neb Soln NEB ONE (17:27)
[2022-04-06] MEDS ORDERED: methylPREDNISolone Sodium Succinate 125 MG/2 ML SDV IM ONE (17:29)
[2022-04-06] MEDS ORDERED: Metoprolol Tartrate 5 MG/5 ML SDV IVPUSH ONE (18:39)
[2022-04-06 18:42] LABS: ESTIMATED GFR 41 mL/min (>60)
[2022-04-06 19:38] LABS: CORONAVIRUS COVID-19 NAA NEGATIVE (NEGATIVE)
[2022-04-06] MEDS ORDERED: predniSONE 20 MG Tab PO STA (20:08)
[2022-04-06 21:14] VITALS: BP 161/102; PULSE 107
== END 2022-04-06 20:35 | disposition home or self-care (01) ==
LOC: FB.ED 17:18
DX: J44.1 Chronic obstructive pulmonary disease with (acute) exacerbation (principal); E66.2 Morbid (severe) obesity with alveolar hypoventilation; R53.1 Weakness; I10 Essential (primary) hypertension; K21.9 Gastro-esophageal reflux disease without esophagitis; Z88.5 Allergy status to narcotic agent; Z88.8 Allergy status to other drugs, medicaments and biological substances; Z79.899 Other long term (current) drug therapy; Z87.891 Personal history of nicotine dependence; Z20.822 Contact with and (suspected) exposure to COVID-19
CPT/HCPCS: 0241U; 36415; 71045; 80053; 83880; 84484; 85025; 85610; 85730; 93005; 99285; A9270; J2930; J7512; J7620

== ENCOUNTER 2022-05-27 14:15 | Emergency (ER) | payer MEDICARE, OTHER ==
[2022-05-27] MEDS ORDERED: Sodium Chloride 0.9% 10 ML Syringe FLUSH PRN (15:03)
[2022-05-27 15:50] LABS: BASE EXCESS VENOUS,POC 4 mmol/L (-2 - 3+); PCO2 VENOUS,POC 39 mmHg (41-51); PH VENOUS,POC 7.46 pH Units (7.32-7.43)
[2022-05-27 15:51] LABS: ESTIMATED GFR 41 mL/min (>60)
[2022-05-27 17:59] VITALS: BP 139/62; PULSE 100
== END 2022-05-27 17:54 | disposition home or self-care (01) ==
LOC: FB.ED 14:15
DX: J44.9 Chronic obstructive pulmonary disease, unspecified (principal); I11.0 Hypertensive heart disease with heart failure; I50.9 Heart failure, unspecified; E66.9 Obesity, unspecified; Z68.43 Body mass index [BMI] 50.0-59.9, adult; Z88.5 Allergy status to narcotic agent; Z88.8 Allergy status to other drugs, medicaments and biological substances; Z79.899 Other long term (current) drug therapy
CPT/HCPCS: 36415; 71045; 80053; 83880; 84484; 85025; 85610; 85730; 93005; 99285

== ENCOUNTER 2022-10-04 19:20 | Emergency (ER) | payer MEDICARE, OTHER ==
[2022-10-04] MEDS ORDERED: traMADol 50 MG Tab PO ONE (19:21)
[2022-10-04 21:52] VITALS: BP 155/93; PULSE 98
== END 2022-10-04 21:14 | disposition home or self-care (01) ==
LOC: FB.ED 19:20
DX: S92.911A Unspecified fracture of right toe(s), initial encounter for closed fracture (principal); I10 Essential (primary) hypertension; K21.9 Gastro-esophageal reflux disease without esophagitis; J44.9 Chronic obstructive pulmonary disease, unspecified; E66.9 Obesity, unspecified; Z79.899 Other long term (current) drug therapy; Z88.5 Allergy status to narcotic agent; Z91.040 Latex allergy status; W01.0XXA Fall on same level from slipping, tripping and stumbling without subsequent striking against object, initial encounter
CPT/HCPCS: 73630; 99283; A9270

== ENCOUNTER 2024-07-05 16:04 | Emergency (ER) | payer MEDICARE, OTHER ==
[2024-07-05 17:51] VITALS: BP 147/83; PULSE 73
== END 2024-07-05 17:05 | disposition home or self-care (01) ==
LOC: FB.ED 16:04
DX: S90.111A Contusion of right great toe without damage to nail, initial encounter (principal); I10 Essential (primary) hypertension; E03.9 Hypothyroidism, unspecified; Z88.8 Allergy status to other drugs, medicaments and biological substances; Z79.899 Other long term (current) drug therapy; X58.XXXA Exposure to other specified factors, initial encounter
CPT/HCPCS: 73660-T5; 99283

== ENCOUNTER 2024-07-06 13:28 | Emergency (ER) | payer MEDICARE, OTHER ==
[2024-07-06 16:05] VITALS: BP 135/77; PULSE 94
== END 2024-07-06 16:00 | disposition home or self-care (01) ==
LOC: FB.ED 13:28
DX: S92.421A Displaced fracture of distal phalanx of right great toe, initial encounter for closed fracture (principal); F12.20 Cannabis dependence, uncomplicated; I10 Essential (primary) hypertension; J44.9 Chronic obstructive pulmonary disease, unspecified; K21.9 Gastro-esophageal reflux disease without esophagitis; E03.9 Hypothyroidism, unspecified; Z88.8 Allergy status to other drugs, medicaments and biological substances; Z88.5 Allergy status to narcotic agent; Z79.899 Other long term (current) drug therapy; Z79.890 Hormone replacement therapy; V00.031A Pedestrian on foot injured in collision with rider of standing electric scooter, initial encounter
CPT/HCPCS: 73700-RT; 99284

== ENCOUNTER 2024-08-20 11:16 | Emergency (ER) | payer MEDICARE, OTHER ==
[2024-08-20 12:17] LABS: BASOPHILS ABSOLUTE AUTO 0.1 x10-3/uL (0.0-0.1); BASOPHILS PERCENT AUTO 0.9 % (0.2-1.5); EOSINOPHILS ABSOLUTE AUTO 0.2 x10-3/uL (0.0-0.8); EOSINOPHILS PERCENT AUTO 2.1 % (0.6-8.1); LYMPHOCYTES ABSOLUTE AUTO 2.9 x10-3/uL (1.0-4.4); LYMPHOCYTES PERCENT AUTO 28.3 % (18.4-52.1); MEAN PLATELET VOLUME 8.5 fL (7.1-12.4); MONOCYTES ABSOLUTE AUTO 1.0 x10-3/uL (0.3-1.0); MONOCYTES PERCENT AUTO 9.5 % (4.4-15.7); NEUTROPHILS ABSOLUTE AUTO 6.2 x10-3/uL (1.5-6.3); NEUTROPHILS PERCENT AUTO 59.2 % (30.8-76.2); PLATELET COUNT,PLT 280 x10(3)uL (151-488); RED BLOOD CELL COUNT 4.91 x10(6)uL (3.60-5.20); RED CELL DISTRIBUTION WIDTH 17.9 % (12.3-16.5); WHITE BLOOD CELL COUNT,WBC 10.4 x10-3/uL (3.0-10.3)
[2024-08-20 12:23] LABS: BLOOD UREA NITROGEN,BUN 27 mg/dL (7-18); CARBON DIOXIDE,CO2 33 mmol/L (21-32); CHLORIDE,CL 97 mmol/L (100-110); CREATININE 1.8 mg/dL (0.55-1.02); ESTIMATED GFR 30 mL/min (>60); GLUCOSE RANDOM 145 mg/dL (80-116); POTASSIUM,K 3.8 mmol/L (3.5-5.3); SODIUM,NA 137 mmol/L (135-145)
[2024-08-20 12:28] LABS: A/G RATIO 0.8; ALANINE AMINOTRANSFERASE,ALT 26 U/L (12-36); ASPARTATE AMNIOTRANSFERASE,AST 19 IU/L (5-25); BILIRUBIN TOTAL 0.4 mg/dL (0.1-1.3); PROTEIN TOTAL,TP 8.1 g/dL (6.0-8.0)
[2024-08-20 12:35] LABS: PRO B-TYPE NATRIUR PEPT,BNPPRO 110.0 pg/mL (<=125)
[2024-08-20 12:40] LABS: BASE EXCESS ARTERIAL,POC 5 mmol/L (-2 - 3+); HCO3 ARTERIAL,POC 29 mmol/L (21-28); O2 SATURATION ARTERIAL,POC 93.7 % (94-98); PO2 ARTERIAL,POC 65 mmHg (83-108)
[2024-08-20 14:33] VITALS: BP 118/68; PULSE 110
== END 2024-08-20 15:19 | disposition home or self-care (01) ==
LOC: FB.ED 11:16
DX: J22 Unspecified acute lower respiratory infection (principal); I10 Essential (primary) hypertension; K21.9 Gastro-esophageal reflux disease without esophagitis; E03.9 Hypothyroidism, unspecified; Z79.899 Other long term (current) drug therapy; Z88.8 Allergy status to other drugs, medicaments and biological substances; Z79.890 Hormone replacement therapy
CPT/HCPCS: 36415; 71045; 80053; 82803; 83880; 84484; 85025; 86140; 87426; 93005; 99285; A9270; J7512